=== PATIENT | male | born 1970 | race Caucasian/White ===

== ENCOUNTER → 2019-06-07 11:06 | Outpatient (CLI) | payer MEDICARE, MEDICAID, SELFPAY ==
--- NOTE | 2019-06-07 11:15 | XR_ITS ---
PROCEDURE: XR HIP RT 2-3V W/PELVIS CLINICAL INDICATION: B-HIP PAIN COMPARISON: XR HIP LT 2-3V W/PELVIS from 06/07/2019 FINDINGS: AP view of the pelvis with right hip shows no fracture or dislocation. No lytic or blastic change. Slight decrease in the joint space. There are degenerative changes of the SI joints inferiorly. There is some minimal lipping of the inferior aspect of the acetabulum on the left with minimal spurring. No fracture or dislocation. Slight decrease in the joint space. IMPRESSION: Minimal degenerative changes of the hips and SI joints. Dictated by: Terry Carbajal MD 06/07/2019 18:00 Electronically signed by Terry Carbajal MD in [place] 06/07/2019 18:00
--- NOTE | 2019-06-07 11:15 | XR_ITS ---
PROCEDURE: XR MULTIPLE SPINE 6+V CLINICAL INDICATION: CERVICAL /LUMBAR SPONDYLOSIS, LUMBAR NEURITIS COMPARISON: No exams were available for comparison FINDINGS: Cervical spine five views: Degenerative disc disease C4-C5 C5-C6 and C6-C7. The head is slightly tilted toward the left. No significant foraminal narrowing. No fracture or dislocation. Lumbar spine: Five views: Normal alignment. Minimal endplate hypertrophic change at L4 and L5. The disc spaces are well preserved. There is mild dorsal subluxation of the coccyx age indeterminate. Hypertrophic changes are present at the inferior aspect of the SI joints IMPRESSION: Degenerative changes cervical spine Mild degenerative changes lumbar spine with suspected old coccyx fracture Sacroiliac arthropathy Dictated by: Terry Carbajal MD 06/07/2019 17:59 Electronically signed by Terry Carbajal MD in [place] 06/07/2019 17:59
== END ==
PROVIDERS: PCP Nurse Practitioner Family; Visit Provider Nurse Practitioner Family
DX: M47.812 Spondylosis without myelopathy or radiculopathy, cervical region (principal); M47.816 Spondylosis without myelopathy or radiculopathy, lumbar region; M54.16 Radiculopathy, lumbar region; M25.552 Pain in left hip; M25.551 Pain in right hip
CPT/HCPCS: 72084; 73502

== ENCOUNTER 2021-03-08 19:30 | Inpatient (IN) | payer MEDICARE, MEDICAID, SELFPAY ==
[2021-03-08] VITALS (24 sets, daily range): BP systolic 70–111; BP diastolic 39–68; PULSE 43–183; RESP 14–20; TEMP 36.5; O2SAT 95–100; BMI 25.7
--- NOTE | 2021-03-08 | ECG_ITS ---
APPROVED REPORT Exam: Resting ECG HR:76 bpm ECG Measurements Heart Rate 76 AXES ID 174 P 78 QRSd 102 QRS 248 QT 396 T 262 QTc 445 Conclusion Normal sinus rhythm Right superior axis deviation Right ventricular hypertrophy Inferior infarct, age undetermined Abnormal ECG Electronically signed by : Kelvin Montoya, 03/09/2021 13:46:47
--- NOTE | 2021-03-08 | IR_ITS ---
APPROVED REPORT Patient Location: [facility] Tier: ITZ Duran RT (R) PROCEDURES 1. Left heart catheterization 2. Selective coronary arteriography 3. Left ventriculography 4. PTCA/stent of the left circumflex INDICATION 1. Ventricular tachycardia, 2. Non-Q wave myocardial infarction SCAI INDICATION Patient is a 50-year-old white male who presented with ventricular tachycardia. Non-Q wave myocardial infarction. Abnormal EKG. Secondary to this referred to the heart catheterization laboratory Informed consent was obtained prior to the procedure. COMPLICATIONS None Estimated Blood Loss: less than 10ml TECHNIQUE One percent lidocaine was used to anesthetize the right groin. The right femoral artery was accessed via the Seldinger technique. A 4-Yi sheath was placed in the right femoral artery. The JL-4 and JR-4 catheter was also used to perform left heart catheterization left ventriculogram and selective coronary angiogram. At the end of the procedure the patient was transferred to the post-op holding area in stable condition for arterial sheath removal. ANGIOGRAPHIC RESULTS The left main artery Left main coronary artery angiographically normal The left anterior descending artery Left anterior descending with smooth 20% mid stenosis The circumflex artery Left circumflex 100% occluded in its proximal/midportion prior to the takeoff of a large diagonal branch. There was also a ramus intermedius which was moderate in size and angiographically normal The right coronary artery Right coronary artery large and dominant. Posterior descending artery with smooth 40% proximal stenosis The ORANTES ventriculogram reveals Borderline normal left ventricular systolic function with an ejection fraction of 50% The left ventricular end-diastolic pressure 18 After diagnostic catheterization I went in with a guide catheter after heparin was given. Heparin was given with an ACT greater than 400. Went into the guide catheter left main coronary artery. Crossed into a large obtuse marginal branch with a Choice PT wire. Predilation was done with a balloon. One stent was placed in the obtuse marginal branch with another in the proximal circumflex. Resulted in 0% residual stenosis with NOÉ-3 flow to the distal large obtuse marginal branch. No significant residual stenosis when the procedure was complete IMPRESSION 1. 100% occlusion of the circumflex artery in its proximal portion 2. Mild diffuse disease in the other coronary vessels 3. Borderline normal left ventricular systolic function 4. Mild elevation in left ventricular end-diastolic pressure 5. Successful angioplasty and stenting of the circumflex and the circumflex extending into the large obtuse marginal with resolute [place] drug-eluting stents resulting in 0% residual stenosis 6. Successful placement of an Angio-Seal device in the right common femoral artery PLAN 1. Brilinta 180 mg x 1 now than 90 mg twice daily. I did start him on Integrilin. I run Integrilin for 10 hours. During the procedure the patient did have no reflow after the stenting of the obtuse marginal branch. Nipride was given with judaism of normal flow. Brilinta 90 mg twice daily and aspirin daily. Aggressive risk factor modification. At this point I do not think antiarrhythmics are needed. Low-dose beta-nini. Follow-up in cardiology clinic 1 to 2 weeks after discharge Electronically signed by : Emery Palacio, 03/08/2021 22:00:32
--- NOTE | 2021-03-08 19:31 | ECG_ITS ---
APPROVED REPORT Exam: Resting ECG HR:102 bpm ECG Measurements Heart Rate 102 AXES NE 148 P 78 QRSd 94 QRS 255 QT 388 T 265 QTc 505 Conclusion Sinus tachycardia with frequent premature ventricular complexes Possible Left atrial enlargement Right superior axis deviation Right ventricular hypertrophy Inferior infarct, age undetermined ST & T wave abnormality, consider lateral ischemia Abnormal ECG Electronically signed by : Kelvin Montoya, 03/09/2021 13:47:15
--- NOTE | 2021-03-08 19:39 | PC.NURSE ---
Just spoke with pt's significant other. She states that he does not have a family doctor at this time and that he doesn't take any medicines. Pt's gf is Yamila Harris [phone]
--- NOTE | 2021-03-08 19:43 | XR_ITS ---
PROCEDURE INFORMATION: Exam: XR Chest Exam date and time: 03/08/2021 7:43 PM Age: 50 years old Clinical indication: Patient HX: Neck pain, AMS; Additional info: V tach TECHNIQUE: Imaging protocol: XR of the chest. Views: 1 view. COMPARISON: CR XR MULTIPLE SPINE 6+V 06/07/2019 11:18 AM FINDINGS: Lungs: Mild hypoinflation. No focal airspace consolidation. No pulmonary edema. Calcified granuloma at the left lung apex. Pleural spaces: No pleural effusion. No pneumothorax. Heart/Mediastinum: Heart size is exaggerated by technique, likely within normal limits. Defibrillation pads overlie the chest. Bones/joints: Unremarkable. IMPRESSION: Mild hypoinflation. Otherwise unremarkable.
--- NOTE | 2021-03-08 19:45 | PC.NURSE ---
Dr Hinds speaking with Dr Dc
--- NOTE | 2021-03-08 19:50 | HMH.EDGENADL ---
ED Disposition Clinical Impression: Ventricular tachycardia, Non-ST elevation MO (NSTEMI) Hypotension Qualifiers: Hypotension type: unspecified hypotension type Qualified Code(s): I95.9 - Hypotension, unspecified Disposition: Admitted As Inpatient Condition on Discharge: Serious - Critical Care Critical Care Time: Yes Attestation: On 03/08/21, the high probability of a clinically significant, sudden or life threatening deterioration of the following system(s) required my full and direct attention, intervention and personal management. The time I documented below is in addition to time spent performing reported procedures but includes the following listed in this critical care notation. Total Critical Care Time: 40 Vital system(s) involved:: Circulatory Failure My critical care processes included: Assessment & monitoring of V/S, Initial and Re-exams, Data Review/Interpretation, Coordinating Care, Medication Orders and management, Documentation Medical Decision Making - Yosef Inquiry Pt receiving controlled substance: No Vital Signs: 03/08/21 19:37 03/08/21 19:47 03/08/21 20:00 Temperature 97.7 F Temperature Source Oral Pulse Rate 101 H 105 H Pulse Rate [Right] 99 H Respiratory Rate 16 20 16 Blood Pressure 86/54 L 100/57 L Blood Pressure [Right Arm] 89/52 L Blood Pressure Mean Blood Pressure Mean [Right Arm] 64 Blood Pressure Source [Right Arm] Automatic Cuff Blood Pressure Position [Right Arm] Supine 02 Sat by Pulse Oximetry 99 99 98 Oxygen Delivery Method Room Air 03/08/21 20:05 03/08/21 20:10 03/08/21 20:15 Temperature Temperature Source Pulse Rate 54 L 57 L 43 L Pulse Rate [Right] Respiratory Rate 17 18 18 Blood Pressure 89/46 L 92/46 L 90/48 L Blood Pressure [Right Arm] Blood Pressure Mean 54 60 54 Blood Pressure Mean [Right Arm] Blood Pressure Source [Right Arm] Blood Pressure Position [Right Arm] 02 Sat by Pulse Oximetry 95 99 99 Oxygen Delivery Method 03/08/21 20:25 03/08/21 20:30 03/08/21 20:35 Temperature Temperature Source Pulse Rate 45 L 49 L 50 L Pulse Rate [Right] Respiratory Rate 14 16 16 Blood Pressure 95/50 L 91/44 L 95/54 L Blood Pressure [Right Arm] Blood Pressure Mean 58 51 58 Blood Pressure Mean [Right Arm] Blood Pressure Source [Right Arm] Blood Pressure Position [Right Arm] 02 Sat by Pulse Oximetry 99 98 98 Oxygen Delivery Method 03/08/21 20:40 03/08/21 20:45 03/08/21 20:50 Temperature Temperature Source Pulse Rate 47 L 57 L 54 L Pulse Rate [Right] Respiratory Rate 16 16 16 Blood Pressure 111/67 108/59 L 99/53 L Blood Pressure [Right Arm] Blood Pressure Mean 73 64 59 Blood Pressure Mean [Right Arm] Blood Pressure Source [Right Arm] Blood Pressure Position [Right Arm] 02 Sat by Pulse Oximetry 97 98 Oxygen Delivery Method - Lab Data Lab Results 03/08/21 19:35: WBC 12.3 H, RBC 5.52, Hgb 15.7, Hct 47.9, MCV 86.7, MCH 28.4, MCHC 32.7, RDW 14.1, Plt Count 399, MPV 7.9, Neut % (Auto) 81.3 H, Lymph % (Auto) 13.5, [place] % (Auto) 3.5, Eos % (Auto) 0.9, Baso % (Auto) 0.7, Neut # (Auto) 10.0 H, Lymph # (Auto) 1.7, [place] # (Auto) 0.4, Eos # (Auto) 0.1, Baso # (Auto) 0.1 03/08/21 19:35: Sodium 141, Potassium 4.2, Chloride 106, Carbon Dioxide 22, Anion Gap 17.2 H, BUN 19, Creatinine 1.80 H, Estimated Creat Clear 58, Estimated GFR 40 L, Est GFR ( Amer) 48 L, Glucose 154 H, Calcium 9.3, Troponin I 6.68 H 03/08/21 19:35: Magnesium 2.0 03/08/21 19:35: ESR 17 03/08/21 19:35: Total Bilirubin 0.4, Direct Bilirubin 0.3, Conjugated Bilirubin 0.0, Indirect Bilirubin 0.1, Unconjugated Bilirubin 0.1, AST 35, ALT 31, Alkaline Phosphatase 73, C-Reactive Protein 8.1 H, Total Protein 7.2, Albumin 4.0, Procalcitonin 0.080 03/08/21 19:35: Lactate 3.8 H 03/08/21 21:30: Activated Clotting Time > 400 H* Result diagrams: 03/10/21 06:37 03/10/21 06:37 Orders (Tests/Meds): ED MEDICATIONS
[2021-03-08 19:54] LABS: Basophils # 0.1 K/mm3 (0-0.2); Basophils % 0.7 % (0.1-2.0); Eosinophils # 0.1 K/mm3 (0.0-0.4); Eosinophils % 0.9 % (0.1-12.0); Hematocrit 47.9 % (42.0-52.0); Hemoglobin 15.7 g/dL (14.1-18.0); Lymphocytes # 1.7 K/mm3 (0.7-4.5); Lymphocytes % 13.5 % (10-50); Mean Corpuscular HGB Conc 32.7 g/dL (31.8-35.4); Mean Corpuscular Hemoglobin 28.4 pg (27.0-31.2); Mean Corpuscular Volume 86.7 fl (80-94); Mean Platelet Volume 7.9 fl (7.4-10.4); Monocytes # 0.4 K/mm3 (0.1-1.0); Monocytes % 3.5 % (1.7-9.3); Neutrophils % 81.3 % (37.0-80.0); Platelet Count 399 K/mm3 (142-424); Red Blood Count 5.52 M/mm3 (4.60-6.20); Red Cell Distribution Width 14.1 % (11.5-17.5); White Blood Count 12.3 K/mm3 (4.8-10.8)
[2021-03-08 19:56] LABS: Anion Gap 17.2 mEq/L (5-15); Blood Urea Nitrogen 19 mg/dl (9-20); Calcium 9.3 mg/dl (8.4-10.2); Carbon Dioxide 22 mmol/L (22.0-30.0); Chloride 106 mmol/L (98-107); Creatinine Clearance Estimated 58 mL/min (50-200); Estimated Glomerular Filt Rate 40 ml/min (>60); GFR (African American) 48 ML/MIN (>60); Glucose 154 mg/dl (74-100); Potassium 4.2 mmoL/L (3.5-5.1); Sodium 141 mmol/L (136-145)
[2021-03-08 20:15] LABS: Troponin I 6.68 ng/ml (0.00-0.034)
--- NOTE | 2021-03-08 20:16 | PC.NURSE ---
Critical Troponin called from Lab name and confirmed and results given to Dr Hinds
[2021-03-08 20:17] LABS: Alanine Aminotransferase 31 U/L (12-78); Alkaline Phosphatase 73 U/L (38-126); Aspartate Amino Transferase 35 U/L (17-59); Bilirubin,Direct 0.3 mg/dl (0.0-0.4); Bilirubin,Indirect 0.1 mg/dL (0.0-0.9); Bilirubin,Total 0.4 mg/dl (0.2-1.3); Bilirubin,Unconjugated 0.1 mg/dL (0.0-1.1); Total Protein,Serum 7.2 g/dl (6.3-8.2)
--- NOTE | 2021-03-08 20:19 | PC.NURSE ---
Paged Dr Dc
[2021-03-08 20:21] LABS: Lactic Acid 3.8 mmol/L (0.7-2.1)
[2021-03-08 20:22] LABS: C-Reactive Protein 8.1 mg/L (0-4)
--- NOTE | 2021-03-08 20:30 | PC.NURSE ---
Dr Hinds spoke with Dr Palacio who requested roofing laborer be paged in. Paged at 2024 Paula 2024 Pietro 2025 Ena 2026. calls returned as above.
[2021-03-08 20:38] LABS: Erythrocyte Sedimentation Rate 17 mm/hr (0-20)
[2021-03-08 22:12] LABS: CATHL Activated Clotting Time > 400 SEC (74-125)
--- NOTE | 2021-03-08 23:30 | SUR.OPER ---
HAVE ATTEMPTED ORDERING NIPRIDE IN OCT TWICE. CANNOT SEE THAT IT HAS BEEN ORDERED IN OCT. NIPRIDE 200MCG/ML FOR A TOTAL OF 1ML(0.2MG) WAS GIVEN DURING PROCEDURE BY DR. VONNIE WOODSON. VERIFIED W/ PAULINE RN.
[2021-03-09] VITALS (23 sets, daily range): BP systolic 88–156; BP diastolic 48–91; PULSE 70–103; RESP 18–28; TEMP 36.3–37; O2SAT 91–100; BMI 26.0; BMI 31.2
--- NOTE | 2021-03-09 00:05 | SUR.PHASEII ---
2220 PT IN VTACH W/ PULSE AND ALERT AND ORIENTED AND ASYMPTOMATIC . BP = 103/45. HR = 183. O2 = 100 ON SIMPLE MASK AT 6L. PT IMMEDIATELY ASSESSED AND ER DOCTOR CALLED. ALISHA ORDERED 12 LEAD EKG. EKG BEING PERFORMED ALISHA WAS AT BEDSIDE DISCUSSING PT W/ DR. WALDEN ON PHONE. PT CONTINUES TO HAVE PULSE AND BE ORIENTED. ALISHA RECEIVED ORDER FROM WIN TO ADMINISTER AMIO BOLUS OF 150MG IV PUSH. PT CONTINUED TO BE IN VTACH. ORDERS THEN RECEIVED TO PERFORM A SYNCHRONIZED SHOCK AT 200J. PRIOR TO SHOCK SEDATION ADMINISTERED PER PROTOCOL. AFTER SHOCK PT CONTINUES TO BE IN VTACH. ORDERS THEN RECEIVED FOR UNSYNCHRONIZED SHOCK AT 200J. PT CONTINUES TO BE WITH PULSE AND ORIENTED AND ASYMPTOMATIC. HOWEVER CONTINUES IN VTACH. ORDERS THEN RECEIVED FROM CHINTAN TO ALISHA TO ADMINISTER LIDO 2% (100MG) IV PUSH. AFTER THIS MEDICATION PT CONVERTED TO NSR WHICH WAS CONFIRMED W/ ANOTHER 12 LEAD EKG. PT REMAINS STABLE.
[2021-03-09 00:11] LABS: Reflex Lactic Add Lactic Reflex
--- NOTE | 2021-03-09 01:42 | PC.NURSE ---
[address] alston for updated status report. informed dr. alston of blood pressure. heart rate, o2 sat, reported back pain and headache as well as sr without ectopy. no new orders received.
--- NOTE | 2021-03-09 01:52 | PC.NURSE ---
received order for pain medication. 2 norco given as well as zofran for nausea
--- NOTE | 2021-03-09 01:53 | PC.NURSE ---
patient up to floor 00:44 via stretcher.
[2021-03-09 02:14] LABS: Coronavirus 19, PCR Not Detected (NotDetected); Influenza A, PCR Not Detected (NotDetected); Influenza B, PCR Not Detected (NotDetected)
[2021-03-09 02:22] LABS: Lactic Acid Follow Up (RFLX 1) 1.7 mmol/L (0.7-2.1)
[2021-03-09 02:39] LABS: Troponin I 4.59 ng/ml (0.00-0.034)
--- NOTE | 2021-03-09 02:45 | PC.NURSE ---
received call raysa de in lab regarding troponin level, documented in critical lab
--- NOTE | 2021-03-09 02:46 | PC.NURSE ---
patient having episodes of daily, fcon denies any pain, soa, n/v, blood pressure remains stable. lidocaine drip increased to 2mg/min.
--- NOTE | 2021-03-09 02:59 | PC.NURSE ---
Addendum entered by Reva Pérez RN 03/09/21 03:01: also notified of critical troponin level Original Note: dr. chadwick notified of bigiminal and trigiminal triplets and salvos. informed of asymptomatic and stable blood pressure. informed of increase in lidocaine drip. no new orders received.
--- NOTE | 2021-03-09 04:03 | PC.NURSE ---
patient continues to have bigiminal couplets, remains asymptomatic. lidocaine drip increased to 3 mg/min
--- NOTE | 2021-03-09 05:50 | PC.NURSE ---
0500 patient having trigiminal pvcs, lidocaine drip decreased to 2 mg/min
--- NOTE | 2021-03-09 05:51 | PC.NURSE ---
0520 patient called nurse into room complaining of severe anxiety, states he has a history of it. heart rate 90s with trigiminal pvcs, blood pressure stable, sats greater than 90 % resp rate 30s. dr. hema rogers.
--- NOTE | 2021-03-09 05:52 | PC.NURSE ---
[id number] dr. garrido returned call updated on anxiety, new order received. vs remain stable
--- NOTE | 2021-03-09 08:00 | PC.NURSE ---
Integrilin gtt off @ [address] Palacio
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
--- NOTE | 2021-03-09 09:04 | HMH.PHAVTE ---
[facility] VTE Monitoring - Patient Demographics Admission date: 03/08/21 Report Date: 03/09/21 Time: 09:04 Allergies/Adverse Reactions: Patient Allergies butorphanol [From STADOL] Allergy (Unknown, Verified 03/09/21 01:27) Height: 1.8 m Weight: 84.822 kg Patient Problems: Current Active Problems Ventricular tachycardia (Acute) Non-ST elevation RI (NSTEMI) (Acute) Hypotension (Acute) Anxiety disorder (Acute) GERD (gastroesophageal reflux disease) (Acute) - VTE Risk Labs: VTE Related Lab Results Hgb 15.7 g/dL (14.1-18.0) 03/08/21 19:35 Hct 47.9 % (42.0-52.0) 03/08/21 19:35 Plt Count 399 K/mm3 (142-424) 03/08/21 19:35 BUN 19 mg/dl (9-20) 03/08/21 19:35 Creatinine 1.80 mg/dl (0.66-1.25) H 03/08/21 19:35 Estimated Creat Clear 58 mL/min (50-200) 03/08/21 19:35 Was VTE Risk Assessment Performed: Yes VTE Score: 8 VTE Risk Level: Moderate Risk Clinical Trial Participant: No - Prophylaxis VTE Prophylaxis Ordered?: Yes Types of VTE Prophylaxis: TEDS Knee High
[2021-03-09 09:07] LABS: Magnesium 2.2 mg/dl (1.6-2.3)
[2021-03-09 09:39] LABS: Thyroid Stimulating Hormone 3.53 uIU/mL (0.465-4.68)
[2021-03-09 10:02] LABS: Basophils # 0.2 K/mm3 (0-0.2); Eosinophils # 0.2 K/mm3 (0.0-0.4); Eosinophils % 1.1 % (0.1-12.0); Hematocrit 43.6 % (42.0-52.0); Lymphocytes # 3.7 K/mm3 (0.7-4.5); Lymphocytes % 17.6 % (10-50); MANUAL DIFFERENTIAL MANUAL DIFFERENTIAL (MANUAL DIFF); Mean Corpuscular Volume 87.3 fl (80-94); Mean Platelet Volume 7.9 fl (7.4-10.4); Monocytes # 0.9 K/mm3 (0.1-1.0); Monocytes % 4.2 % (1.7-9.3); Neutrophils # 16.1 K/mm3 (1.8-7.8); Platelet Count 404 K/mm3 (142-424); Red Cell Distribution Width 14.1 % (11.5-17.5); White Blood Count 21.1 K/mm3 (4.8-10.8)
[2021-03-09 10:07] LABS: Chloride 111 mmol/L (98-107); Sodium 140 mmol/L (136-145)
[2021-03-09 10:08] LABS: Potassium 4.7 mmoL/L (3.5-5.1)
[2021-03-09 10:10] LABS: Blood Urea Nitrogen 17 mg/dl (9-20); Creatinine Clearance Estimated 81 mL/min (50-200); Estimated Glomerular Filt Rate 58 ml/min (>60); GFR (African American) 70 ML/MIN (>60)
[2021-03-09 10:11] LABS: Anion Gap 11.7 mEq/L (5-15); Calcium 8.8 mg/dl (8.4-10.2); Carbon Dioxide 22 mmol/L (22.0-30.0); Glucose 120 mg/dl (74-100)
[2021-03-09 10:37] LABS: Lymphocytes % 18 % (10-50); Monocytes % 7 % (2-9); Neutrophils % 75 % (42-76); Platelet Estimate Normal; RBC Morphology Normal; Total Cells Counted 100
--- NOTE | 2021-03-09 16:22 | PC.NURSE ---
PT IS SITTING UP IN THE BED AT THIS TIME. PT STATES HE WOULD LIKE TO BE ABLE TO GO TO SLEEP BUT HE JUST CANNOT SEEM TO GET COMFORTABLE. PT STATES HE IS NOT HAVING ANY CHEST PAIN BUT DOES FEEL VERY ANXIOUS. PT STATED HE WAS ON MEDICATION FOR ANXIETY 5 YEARS AGO AND WAS ABLE TO WEAN HIMSELF OFF OF IT BUT SINCE THIS EVENT HE FEELS LIKE HIS ANXIETY MIGHT BECOME A PROBLEM AGAIN. HR HAS MAINTAINED 88-98 T/O THE SHIFT. RHYTHM IS BACK AND FOURTH BETWEEN BIGEMINY AND TRIGEMINY. LIDOCAINE DRIP @ 2MG/MIN. APPETITE HAS BEEN POOR BUT PT HAS BEEN DRINKING WELL. BP STABLE AT THIS TIME. O2 SATURATION 90-96% ON 2 L NC. JEOVANY NOTED THAT PT STATES HE HAS HAD SINCE 2000. LUNG SOUNDS DIMINISHED. ABDOMEN SOFT/NON TENDER WITH HYPERACTIVE BOWEL SOUNDS. BILATERAL FEMORAL CATH SITES WITH DRESSINGS C/D/I. WILL CONTINUE TO MONITOR.
[2021-03-10] VITALS (14 sets, daily range): BP systolic 102–154; BP diastolic 51–90; PULSE 83–116; RESP 18–30; TEMP 36.6–36.9; O2SAT 91–99
[2021-03-10 07:04] LABS: Basophils # 0.1 K/mm3 (0-0.2); Basophils % 0.6 % (0.1-2.0); Eosinophils # 0.1 K/mm3 (0.0-0.4); Eosinophils % 0.8 % (0.1-12.0); Hematocrit 40.8 % (42.0-52.0); Hemoglobin 13.4 g/dL (14.1-18.0); Lymphocytes # 1.8 K/mm3 (0.7-4.5); Lymphocytes % 11.5 % (10-50); Mean Corpuscular HGB Conc 32.9 g/dL (31.8-35.4); Mean Corpuscular Hemoglobin 28.3 pg (27.0-31.2); Mean Platelet Volume 7.6 fl (7.4-10.4); Monocytes # 0.5 K/mm3 (0.1-1.0); Monocytes % 3.2 % (1.7-9.3); Neutrophils # 13.1 K/mm3 (1.8-7.8); Neutrophils % 83.9 % (37.0-80.0); Platelet Count 252 K/mm3 (142-424); Red Blood Count 4.75 M/mm3 (4.60-6.20); Red Cell Distribution Width 14.3 % (11.5-17.5); White Blood Count 15.6 K/mm3 (4.8-10.8)
[2021-03-10 07:07] LABS: MANUAL DIFFERENTIAL MANUAL DIFFERENTIAL (MANUAL DIFF)
[2021-03-10 07:20] LABS: Alanine Aminotransferase 21 U/L (12-78); Albumin Level 3.3 g/dl (3.5-5.0); Albumin/Globulin Ratio 1.1 (1.1-1.8); Alkaline Phosphatase 69 U/L (38-126); Anion Gap 12.9 mEq/L (5-15); Aspartate Amino Transferase 24 U/L (17-59); Bilirubin,Total 0.5 mg/dl (0.2-1.3); Blood Urea Nitrogen 17 mg/dl (9-20); Calcium 8.5 mg/dl (8.4-10.2); Carbon Dioxide 26 mmol/L (22.0-30.0); Chloride 110 mmol/L (98-107); Creatinine Clearance Estimated 97 mL/min (50-200); Estimated Glomerular Filt Rate 58 ml/min (>60); GFR (African American) 70 ML/MIN (>60); Glucose 102 mg/dl (74-100); Potassium 4.9 mmoL/L (3.5-5.1); Sodium 144 mmol/L (136-145); Total Protein,Serum 6.3 g/dl (6.3-8.2)
--- NOTE | 2021-03-10 07:30 | HMH.CNCARD ---
History of Present Illness Consult date: 03/10/21 Requesting physician: Kelvin Montoya Consult reason: chest pain Chief complaint: NSTEMI Additional Medical History:: 1. Hypertension, treated in the past with recent disruption in therapy over the last 5 years 2. Hyperlipidemia, treated in the past and again with recent disruption in therapy 3. History of drug use (most recently methamphetamine) 4. Family history of coronary artery disease, and both sisters, father of a stroke, mother of cancer 5. Tobacco use, 1.5 to 2 packs/day for at least 30 years 6. History of incarceration 7. Reported history of myocardial infarction approximately 2012 without follow-up cardiac catheterization. Reportedly had an echocardiogram and was told that there was no evidence of damage. 8. Non-ST elevation CO, 03/08/2021, complicated by ventricular tachycardia requiring electrical cardioversion after IV amiodarone therapy failed to control A. [facility], 03/08/2021, IMPRESSION 1. 100% occlusion of the circumflex artery in its proximal portion 2. Mild diffuse disease in the other coronary vessels 3. Borderline normal left ventricular systolic function 4. Mild elevation in left ventricular end-diastolic pressure 5. Successful angioplasty and stenting of the circumflex and the circumflex extending into the large obtuse marginal with resolute Nelson drug-eluting stents resulting in 0% residual stenosis 6. Successful placement of an Angio-Seal device in the right common femoral artery PLAN 1. Brilinta 180 mg x 1 now than 90 mg twice daily. I did start him on Integrilin. I run Integrilin for 10 hours. During the procedure the patient did have no reflow after the stenting of the obtuse marginal branch. Nipride was given with catholic of normal flow. Brilinta 90 mg twice daily and aspirin daily. Aggressive risk factor modification. At this point I do not think antiarrhythmics are needed. Low-dose beta-nini. Follow-up in cardiology clinic 1 to 2 weeks after discharge Electronically signed by : Emery Palacio, 03/08/2021 22:00:32 9. 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 Remote history of heatstroke History of present illness: 50-year-old white male admitted for non-ST elevation CO with ventricular tachycardia unresponsive to IV amiodarone therapy ultimately requiring electrical cardioversion in urgent treatment with cardiac catheterization and subsequent stent placement. Please see ER admission records and Dr. Montoya's admission H&P for further information. Patient states 3 weeks ago he had a discomfort in his back and up into the back of his neck after which he remained somewhat fatigued and tired. On March 07 patient began having episodes of just not feeling well with visual disturbance that improved after taking aspirin therapy. Symptoms again returned on March 08 and after treating with aspirin therapy, symptoms continued to the point the contacted EMS for transportation to the hospital. He was noted to be in V. tach upon the assessment by EMS and was given IV amiodarone therapy. Assessment in the ER included elevated troponins for which Dr. Dc was contacted. Initially it was felt that he would not be taken to the cardiac [employer] but due to continued runs of V. tach and hypotension it was elected to treat him more aggressively at which time he was taken to the cardiac [employer]. Dr. Morrison performed the cardiac catheterization placing stents in the circumflex distribution. Due to a no reflow phenomenon post stenting patient was given night pride along with IV Integrilin with improvement. Patient has continued to have ventricular ectopy including recurrent V. tach reguiring additional IV amiodarone, repeat cardioversion and then IV lidocaine resulting in decreased ventricular therapy over the last 36 hours. He denies any chest pain, pressure or tightness at this time. EKG and echocardiogram are pending from this m
--- NOTE | 2021-03-10 08:07 | PC.NURSE ---
per catalino verduzco instructed to decrease lidocaine drip to 1mg/min give 50mg of metoprolol tartrate and turn lidocaine off in an hour.
--- NOTE | 2021-03-10 08:33 | HMH.ACPN2 ---
Internal Medicine - PN: Subj *Date: 03/10/21 *Time: 08:33 Interval history: Patient remains in stepdown unit on lidocaine drip for post MS V. tach. He has had no further episodes of V. tach, does have alternating bigeminy and trigeminy. However from a cardiac standpoint patient states he feels good he is just been extremely agitated and has had problems with difficulty sleeping and tachypnea and because of his nerves. After Ativan was really unsuccessful we tried 1 dose of Resporal and then switched to Seroquel which she stated was much more helpful and allowed him to get some sleep. He is in a much better emotional mood today. Cardiology has seen the patient this morning. Appreciate evaluation. Talked with cardiology by phone. Exam Vital signs and Labs for Last 24 Hours: Temp Pulse Resp BP Pulse Ox 98 F 103 H 20 129/51 L 96 03/10/21 04:00 03/10/21 06:00 03/10/21 04:00 03/10/21 06:00 03/10/21 06:00 Laboratory Results - last 24 hr 03/09/21 02:02: Magnesium 2.2, TSH 3.53 03/09/21 10:00: WBC 21.1 H* D, RBC 5.00, Hgb 14.0 L D, Hct 43.6, MCV 87.3, MCH 28.0, MCHC 32.0, RDW 14.1, Plt Count 404, MPV 7.9, Neut % (Auto) 76.0, Lymph % (Auto) 17.6, [place] % (Auto) 4.2, Eos % (Auto) 1.1, Baso % (Auto) 1.0, Neut # (Auto) 16.1 H, Lymph # (Auto) 3.7, [place] # (Auto) 0.9, Eos # (Auto) 0.2, Baso # (Auto) 0.2, Total Counted 100, Neutrophils % (Manual) 75, Lymphocytes % (Manual) 18, Monocytes % (Manual) 7, Platelet Estimate Normal, RBC Morphology Normal 03/09/21 10:00: Sodium 140, Potassium 4.7, Chloride 111 H, Carbon Dioxide 22, Anion Gap 11.7, BUN 17, Creatinine 1.30 H D, Estimated Creat Clear 81, Estimated GFR 58 L, Est GFR ( Amer) 70 D, Glucose 120 H D, Calcium 8.8 03/10/21 06:37: WBC 15.6 H D, RBC 4.75, Hgb 13.4 L, Hct 40.8 L, MCV 86.0, MCH 28.3, MCHC 32.9, RDW 14.3, Plt Count 252 D, MPV 7.6, Neut % (Auto) 83.9 H, Lymph % (Auto) 11.5, [place] % (Auto) 3.2, Eos % (Auto) 0.8, Baso % (Auto) 0.6, Neut # (Auto) 13.1 H, Lymph # (Auto) 1.8, [place] # (Auto) 0.5, Eos # (Auto) 0.1, Baso # (Auto) 0.1 03/10/21 06:37: Sodium 144, Potassium 4.9, Chloride 110 H, Carbon Dioxide 26, Anion Gap 12.9, BUN 17, Creatinine 1.30 H, Estimated Creat Clear 97, Estimated GFR 58 L, Est GFR ( Amer) 70, Glucose 102 H, Calcium 8.5, Total Bilirubin 0.5, AST 24 D, ALT 21 D, Alkaline Phosphatase 69, Total Protein 6.3, Albumin 3.3 L D, Globulin 3.0, Albumin/Globulin Ratio 1.1 03/10/21 06:37: Magnesium 2.0 I & O for Last 24 hours: Intake & Output 03/07/21 03/08/21 03/09/21 03/10/21 11:59 11:59 11:59 11:59 Intake Total 2382 / 2382 720 / 720 Output Total 1525 / 1525 1650 / 1650 Balance 857 / 857 -930 / -930 Weight 224 lb 1 oz - Constitutional no acute distress - *Routine HEENT Exam Head: Present: normocephalic Eye: Present: EOMI, PERRL ENT: Present: mucous membranes moist - *Routine Neck Exam Present: supple. Absent: lymphadenopathy - *Routine Respiratory Exam Present: CTA bilaterally - *Routine Cardiovascular Exam Present: RRR - *Routine Abdominal Exam Present: soft, normoactive bowel sounds. Absent: tenderness - *Routine Extremities Exam Absent: cyanosis, clubbing, edema Comments: Previous amputation site unchanged. No distal edema in the remaining leg. - *Routine Skin Exam Present: warm. Absent: rash - *Routine Neurological Exam Present: alert, oriented X3 Assessment and Plan (1) Anxiety disorder Status: Acute Category: Medical Code(s): F41.9 - Anxiety disorder, unspecified (2) GERD (gastroesophageal reflux disease) Status: Acute Category: Medical Code(s): K21.9 - Gastro-esophageal reflux disease without esophagitis (3) Non-ST elevation MS (NSTEMI) Status: Acute Category: Medical Code(s): I21.4 - Non-ST elevation (NSTEMI) myocardial infarction (4) Ventricular tachycardia Status: Acute Category: Medical Code(s): I47.2 - Ventricular tachycardia (5) Tobacco use disorder Status:
[2021-03-10 08:37] LABS: Eosinophils % 3 % (0-3); Lymphocytes % 11 % (10-50); Monocytes % 4 % (2-9); Neutrophils % 82 % (42-76); Platelet Estimate Normal; RBC Morphology Normal; Total Cells Counted 100
--- NOTE | 2021-03-10 08:49 | CA_ITS ---
APPROVED REPORT EXAM: Comprehensive 2D, Doppler, and color-flow Echocardiogram Umbrella Cutter: Damari Whitaker RVT Ht: 5 ft 11 in Wt: 182lbs BSA: 2.03 BP: 120/64 mmHg Indications: STEMI,VTACH,STENT,VA,DM,SMOKER,CP,HTN,HLD 2D Dimensions LVOT 2.20 cm (M/F) 1.5-2.5 LA Volume 25.00 mL LA Volume Index 12.37 mL/m2 (M/F) 16-34 M-Mode Dimensions LA Diam 3.90 cm (1.9-4.0) LVDd 6.30 cm (3.5-5.7) Ao Diam 2.20 cm (2.0-3.7) LVDs 4.70 cm (3.5-5.7) AV Cusp 1.40 cm (1.5-2.6) IVSd 0.80 cm (0.6-1.1) PWd 0.90 cm (0.6-1.1) EF (Teich) 49.30% FS 25.40% EDV (Teich) 201.00 mL ESV (Teich) 102.00 mL LV Diastology MED E' 7.51 (< 7 cm/sec) LAT E' 9.46 (<10 cm/sec) Aortic Valve AoV Peak Italo. 140.00 (50-130 cm/s) AO Peak GR. 8.00 mmHg Pulmonary Valve PV Peak Velocity 89.30 (50-150 cm/s) Tricuspid Valve TR P. Velocity 220.00 cm/s RAP Estimate 10.00 mmHg RVSP 29.00 mmHg Left Ventricle Left atrium is mildly enlarged, left ventricle is normal size, there is mild concentric left ventricular hypertrophy, visually estimated ejection fraction approximately 45%, there is marked hypokinesis involving the inferior wall, basal septum and inferobasal wall. Diastolic parameters are inconclusive. Right Ventricle Right atrium and right ventricle are normal size and contractility. Aortic Valve Aortic valve is minimally thickened and fibrosed, there is no aortic stenosis or aortic insufficiency. Mitral Valve Mitral valve leaflets are minimally thickened, there is moderate to severe mitral regurgitation. Tricuspid Valve Tricuspid valve is grossly normal, there is mild tricuspid regurgitation, tricuspid regurgitation jet velocity is inadequate for calculation of the right ventricular systolic pressure. Pulmonic Valve Pulmonic valve is poorly visualized. Great Vessels Aortic root is normal size. Inferior vena cava is mildly dilated without significant inspiratory collapse. Pericardium No significant pericardial effusion noted. Conclusion 1. Mildly enlarged left atrium, normal left ventricular size, mild concentric left ventricular hypertrophy, visually estimated ejection fraction 45% with segmental wall motion abnormality described above, diastolic parameters are inconclusive. 2. Moderate to severe mitral regurgitation and mild tricuspid regurgitation, tricuspid regurgitation jet velocity is inadequate for calculation of the right ventricular systolic pressure. 3. No significant pericardial effusion noted. Electronically signed by : Case Bautista, 03/10/2021 13:34:34
--- NOTE | 2021-03-10 15:14 | PC.NURSE ---
patient has had an okay shift. around 1115 patient noted to ring out and complain of shoulder and neck pain. patient also complaining of shortness of breath. stated this is the pain he felt when he came in. did notify catalino verduzco on the floor who came and reassessed the patient. patient given tylenol, lorazepam, seroquel, and morphine, and lasix all given at this time. brilinta changed to plavix. patient has since rested well, and states he is feeling a lot better. pvcs have become slightly less frequent. bp has fluctuated. o2 sats well. patient was upset about spitting up some blood catalino verduzco aware, has not done it since. anxiety has improved through out the day
--- NOTE | 2021-03-10 21:01 | PC.NURSE ---
Snack offered and trash pulled
[2021-03-11] VITALS (11 sets, daily range): BP systolic 117–172; BP diastolic 62–97; PULSE 83–108; RESP 17–24; TEMP 36.5–36.7; O2SAT 92–100; BMI 29.9
--- NOTE | 2021-03-11 02:20 | PC.NURSE ---
r/a sat 93%, o2 remains off at this time.
--- NOTE | 2021-03-11 02:48 | PC.NURSE ---
o2 sats sustaining 85% on r/a 1 hour while sleeping. o2 back to 2 l nc currently
--- NOTE | 2021-03-11 06:56 | HMH.ACPN2 ---
Internal Medicine - PN: Subj *Date: 03/11/21 *Time: 11:44 Interval history: Patient doing well this morning. Still having slight arrhythmia but stable. No chest pain or shortness of breath however still wearing oxygen more for comfort. Did have an episode of anxiety overnight. Denies nausea or vomiting. Eating fairly well. Has not had a bowel movement in about 2 days. Afebrile. Still complaining of right-sided back and shoulder pain present since his previous heart attack. Exam Vital signs and Labs for Last 24 Hours: Temp Pulse Resp BP Pulse Ox 98.0 F 88 24 139/75 93 L 03/11/21 04:00 03/11/21 06:00 03/11/21 06:00 03/11/21 06:00 03/11/21 06:00 Laboratory Results - last 24 hr 03/10/21 06:37: WBC 15.6 H D, RBC 4.75, Hgb 13.4 L, Hct 40.8 L, MCV 86.0, MCH 28.3, MCHC 32.9, RDW 14.3, Plt Count 252 D, MPV 7.6, Neut % (Auto) 83.9 H, Lymph % (Auto) 11.5, [place] % (Auto) 3.2, Eos % (Auto) 0.8, Baso % (Auto) 0.6, Neut # (Auto) 13.1 H, Lymph # (Auto) 1.8, [place] # (Auto) 0.5, Eos # (Auto) 0.1, Baso # (Auto) 0.1, Total Counted 100, Neutrophils % (Manual) 82 H, Lymphocytes % (Manual) 11, Monocytes % (Manual) 4, Eosinophils % (Manual) 3, Platelet Estimate Normal, RBC Morphology Normal 03/10/21 06:37: Sodium 144, Potassium 4.9, Chloride 110 H, Carbon Dioxide 26, Anion Gap 12.9, BUN 17, Creatinine 1.30 H, Estimated Creat Clear 97, Estimated GFR 58 L, Est GFR ( Amer) 70, Glucose 102 H, Calcium 8.5, Total Bilirubin 0.5, AST 24 D, ALT 21 D, Alkaline Phosphatase 69, Total Protein 6.3, Albumin 3.3 L D, Globulin 3.0, Albumin/Globulin Ratio 1.1 03/10/21 06:37: Magnesium 2.0 I & O for Last 24 hours: Intake & Output 03/08/21 03/09/21 03/10/21 03/11/21 23:59 23:59 23:59 23:59 Intake Total 1000 / 1000 1862 / 1862 1200 / 1200 Output Total 2425 / 2425 4100 / 4100 Balance 1000 / 1000 -563 / -563 -2900 / -2900 Weight 83.915 kg 101.633 kg 97.069 kg Narrative: - Constitutional no acute distress, mild anxiety - *Routine HEENT Exam Head: Present: normocephalic Eye: Present: EOMI, PERRL ENT: Present: mucous membranes moist - *Routine Neck Exam Present: supple. Absent: lymphadenopathy - *Routine Respiratory Exam Present: CTA bilaterally - *Routine Cardiovascular Exam Present: RRR - *Routine Abdominal Exam Present: soft, normoactive bowel sounds. Absent: tenderness - *Routine Extremities Exam Absent: cyanosis, clubbing, edema Comments: previous amputation site unchanged. No distal edema in the remaining leg. - *Routine Skin Exam Present: warm. Absent: rash - *Routine Neurological Exam Present: alert, oriented X3 Assessment and Plan (1) Anxiety disorder Status: Acute Category: Medical Code(s): F41.9 - Anxiety disorder, unspecified (2) GERD (gastroesophageal reflux disease) Status: Acute Category: Medical Code(s): K21.9 - Gastro-esophageal reflux disease without esophagitis (3) Non-ST elevation NV (NSTEMI) Status: Acute Category: Medical Code(s): I21.4 - Non-ST elevation (NSTEMI) myocardial infarction (4) Ventricular tachycardia Status: Acute Category: Medical Code(s): I47.2 - Ventricular tachycardia (5) Tobacco use disorder Status: Acute Category: Medical Code(s): F17.200 - Nicotine dependence, unspecified, uncomplicated (6) Hyperlipidemia Status: Acute Category: Medical Code(s): E78.5 - Hyperlipidemia, unspecified (7) History of hypertension Status: Acute Category: Medical Code(s): Z86.79 - Personal history of other diseases of the circulatory system - Assessment and plan all Dx Assessment and Plan for all problems:: 50-year-old male status post STEMI with occlusion of circumflex. Single drug-eluting stent placed. Tolerating goal-directed therapy well at this time. Continue to monitor on telemetry for arrhythmia. Plan from cardiology as follows 1. Ischemic cardiomyopathy with moderate to severe MR. Continue increasing lisinopr
--- NOTE | 2021-03-11 09:17 | P.PN_ITS ---
Subjective Date: 03/11/21 Time: 09:17 Principal diagnosis: NSTEMI, mod-severe MR, CHF Interval history: 50-year-old white male in bed in no acute distress. Shortness of breath has significantly improved over the last 24 hours with medication changes including discontinuation of Brilinta in favor of Plavix, stopping beta-nini therapy in favor of HAYDEN inhibitor therapy due to the patient's moderate to severe MR on echocardiogram. We will continue Lasix therapy as well. Telemetry reveals sinus rhythm with an improvement in ventricular ectopy over the last 24 hours. Exam Vital signs and Labs for Last 24 Hours: Temp Pulse Resp BP Pulse Ox 97.9 F 100 H 17 139/62 99 03/11/21 07:42 03/11/21 07:42 03/11/21 07:42 03/11/21 07:42 03/11/21 07:42 I & O for Last 24 hours: Intake & Output 03/08/21 03/09/21 03/10/21 03/11/21 11:59 11:59 11:59 11:59 Intake Total 2382 / 2382 960 / 960 1080 / 1080 Output Total 1525 / 1525 2450 / 2450 2550 / 2550 Balance 857 / 857 -1490 / -1490 -1470 / -1470 Weight 224 lb 1 oz 214 lb - Constitutional no acute distress - *Routine HEENT Exam Head: Present: normocephalic Eye: Present: EOMI, PERRL ENT: Present: mucous membranes moist - *Routine Neck Exam Present: supple. Absent: lymphadenopathy - *Routine Respiratory Exam Present: CTA bilaterally - *Routine Cardiovascular Exam Present: RRR - *Routine Abdominal Exam Present: soft, normoactive bowel sounds. Absent: tenderness - *Routine Extremities Exam Absent: cyanosis, clubbing, edema - *Routine Skin Exam Present: warm. Absent: rash - *Routine Neurological Exam Present: alert, oriented X3 Progress Note: A&P (1) Anxiety disorder Status: Acute (2) GERD (gastroesophageal reflux disease) Status: Acute (3) Non-ST elevation ND (NSTEMI) Status: Acute (4) Ventricular tachycardia Status: Acute (5) Tobacco use disorder Status: Acute (6) Hyperlipidemia Status: Acute (7) History of hypertension Status: Acute (8) Moderate to severe mitral regurgitation Status: Acute (9) Ischemic cardiomyopathy Status: Acute Assessment and Plan for All Diagnoses:: 1. Ischemic cardiomyopathy with moderate to severe MR. Continue increasing lisinopril therapy to 5 mg twice daily and continue Lasix 40 mg daily. Monitoring renal and potassium status daily. 2. Coronary artery disease with non-ST elevation ND this admission, status post RAINER to circumflex artery. Continue aspirin and Plavix therapy. Patient intolerant of Brilinta due to shortness of breath. 3. Hyperlipidemia, continue statin therapy 4. Ventricular tachycardia on admission with recurrent ventricular bigeminy post stenting, improved with amiodarone 200 mg twice daily. Baseline chest x- ray unremarkable and TSH normal this admission. 5. Anxiety, improved on Ativan and Seroquel therapy Recommend continue to monitor over the next 24 to 48 hours with further decision on treatment and timing of discharge to be determined.
--- NOTE | 2021-03-11 10:17 | HMH.PTEV ---
Physical Therapy Evaluation Rehab PT IP Evaluation Start: 03/11/21 08:20 Freq: ONCE Status: Active Protocol: Document 03/11/21 10:11 EUGENIA (Rec: 03/11/21 10:17 EUGENIA [id number]) Subjective/History History History This is the initial IP PT eval for Darshan Ambrose. Pt was admitted to [facility] thru EMS/ED for non-STEMI. Subjective Subjective Pt reprots he lives in [facility] w/ signifiicant other. Pt has R AKA and uses crutches for mobility Rehab PT IP Eval Objective Appearance Patient Behavior Appropriate,Cooperative Patient Orientation Person,Place,Time Difficulty following instructions none Speech Pattern Clear,Appropriate Ambulation Patient Able to Ambulate Yes Ambulation Observation IP General Gait Pattern Observation Decrease Weight Bear (R) Ambulation Distance (feet) 75 Ambulation Assistive Device Rolling Walker Ambulation Ability Independent,Supervision/Stand by Balance Ability to Arise Able, uses arms to help Sitting Balance Steady, safe Standing Balance Narrow stance w/o support Dynamic Sitting Balance Ability Good Dynamic Standing Balance Ability Fair Transfers Bed Transfer Ability Independent Chair Transfer Ability Independent Sit to Stand Bed Transfer Ability Supervision/Stand by Sit to Stand Chair Transfer Ability Supervision/Stand by Rehab PT IP prob,goals,plan Problems Date of Evaluation: 03/11/21 PT IP Problems Transfers,Gait,Self care, Safety Rehab Potential Rehab Potential Good Equipment Needs Assistive Devices Rolling / Wheeled Walker, Axillary Crutches Plan PT Intervention Plan Transfers,Gait,Balance, Therapeutic Exercise PT Plan Frequency BID Duration LOS Discharge Goals Bed Transfer Ability Independent Sit to Stand Chair Transfer Ability Independent Ambulation Assistive Device Rolling Walker,Axillary Crutches Ambulation Distance (feet) 75 Discharge Plan PT Discharge Plan Pt to return home w/ spouse once medically stable - during stay pt will benefit from skilled therapy to improve activity tolerance for return to PLOF and PLOI G -code Required No Eval Compl
--- NOTE | 2021-03-11 18:40 | PC.NURSE ---
PT IS RESTING IN BED. RECEIVED TYLENOL FOR DISCOMFORT IN THE RT SHOULDER. PT HAS BEEN AMBULATING TO THE BATHROOM WITH WALKER AND STANDBY ASSIST. OFFERED PT A SHOWER THIS SHIFT AND HE STATED HE WANTED TO WAIT FOR HIS GIRLFRIEND TO GET HERE. PT HAS BEEN NSR WITH OCCASIONAL PVC'S ON THE MONITOR. LUNG SOUNDS CLEAR. ABDOMEN SOFT/NON TENDER WITH ACTIVE BOWEL SOUNDS. PT TOLERATED SITTING UP IN THE CHAIR FOR A FEW HOURS THIS SHIFT. PT'S APPETITE HAS IMPROVED. JEOVANY NOTED. PT STATES HE HAS A PROSTHESIS BUT IT NO LONGER FITS SO HE HAS BEEN GETTING AROUND WITH CRUTCHES AT HOME. BILATERAL FEMORAL DRESSING SITES C/D/I. O2 SATURATION HAS MAINTAINED 93-98% ON 2 L NC T/O THE SHIFT. WILL CONTINUE TO MONITOR.
[2021-03-12] VITALS (29 sets, daily range): BP systolic 84–157; BP diastolic 52–103; PULSE 8–145; RESP 14–24; TEMP 36.3–36.7; O2SAT 95–99; BMI 29.5; BMI 29.6
--- NOTE | 2021-03-12 03:00 | ECG_ITS ---
APPROVED REPORT Exam: Resting ECG HR:146 bpm ECG Measurements Heart Rate 146 AXES QRSd 200 QRS 165 QT 404 T -19 QTc 629 Conclusion l Wide QRS tachycardia Nonspecific intraventricular block Right ventricular hypertrophy Inferior infarct, age undetermined Anterolateral infarct, age undetermined Abnormal ECG Electronically signed by : Kelvin Montoya, 03/12/2021 21:36:08
--- NOTE | 2021-03-12 03:42 | PC.NURSE ---
pt started to show v-tach on monitor with pulse up to 145. EKG completed. Contacted who gave orders for 1 amp of Lidocaine and to start a Lidocaine drip at 2mg/hr. Paged to report status of patient, he agreed with orders and gave no more outstanding orders. Pt is stable sitting up in bed talking, B/P has remained stable, Gave report to MARCO ANTONIO Ardon and transferred pt to OR.
--- NOTE | 2021-03-12 03:53 | PC.NURSE ---
0320 received patient from donal rn . patient in wide complex tachycardia with rate 144, pulse palpable. patient any pain, soa, nausea or vomiting. aawake, alert and orients. o2 sats 96% on r/a. o2 applied at 2l nc per patient comfort. 1 amp lidocaine given ivp and lidocaine drip initiated per order. dr. whalen conversing with dr. alston regarding patient. 0400 patient has been converting in and out of wide complex tachycardia, patient remains asymptomatic. when converts back to sr 80s to 90s hr, patient has trigeminal pvcs.
[2021-03-12 04:13] LABS: Chloride 110 mmol/L (98-107)
[2021-03-12 04:14] LABS: Potassium 3.6 mmoL/L (3.5-5.1); Sodium 143 mmol/L (136-145)
[2021-03-12 04:17] LABS: Anion Gap 10.6 mEq/L (5-15); Blood Urea Nitrogen 22 mg/dl (9-20); Calcium 8.7 mg/dl (8.4-10.2); Carbon Dioxide 26 mmol/L (22.0-30.0); Creatinine Clearance Estimated 109 mL/min (50-200); Estimated Glomerular Filt Rate 71 ml/min (>60); GFR (African American) 85 ML/MIN (>60); Glucose 95 mg/dl (74-100); Magnesium 2.1 mg/dl (1.6-2.3)
--- NOTE | 2021-03-12 04:35 | PC.NURSE ---
patient feeling mildly anxious since cardiac event, patient has been sustaining 90s heart rate in sr with occasion single pvcs. last run was 30 min ago. blood pressure normalized and is currently 133/76. 50 mg seroquel given po for anxiety.
[2021-03-12 05:02] LABS: Basophils # 0.1 K/mm3 (0-0.2); Basophils % 0.8 % (0.1-2.0); Chloride 110 mmol/L (98-107); Eosinophils # 0.3 K/mm3 (0.0-0.4); Eosinophils % 3.1 % (0.1-12.0); Hematocrit 41.7 % (42.0-52.0); Hemoglobin 13.4 g/dL (14.1-18.0); Lymphocytes # 2.7 K/mm3 (0.7-4.5); Lymphocytes % 26.8 % (10-50); Mean Corpuscular HGB Conc 32.1 g/dL (31.8-35.4); Mean Corpuscular Hemoglobin 27.3 pg (27.0-31.2); Mean Corpuscular Volume 85.2 fl (80-94); Mean Platelet Volume 8.4 fl (7.4-10.4); Monocytes # 0.9 K/mm3 (0.1-1.0); Monocytes % 8.6 % (1.7-9.3); Neutrophils # 6.1 K/mm3 (1.8-7.8); Neutrophils % 60.8 % (37.0-80.0); Platelet Count 263 K/mm3 (142-424); Potassium 3.6 mmoL/L (3.5-5.1); Red Blood Count 4.89 M/mm3 (4.60-6.20); Red Cell Distribution Width 13.9 % (11.5-17.5); Sodium 143 mmol/L (136-145)
[2021-03-12 05:05] LABS: Alanine Aminotransferase 24 U/L (12-78); Albumin Level 3.7 g/dl (3.5-5.0); Albumin/Globulin Ratio 1.2 (1.1-1.8); Alkaline Phosphatase 72 U/L (38-126); Anion Gap 11.6 mEq/L (5-15); Aspartate Amino Transferase 27 U/L (17-59); Bilirubin,Total 0.4 mg/dl (0.2-1.3); Blood Urea Nitrogen 21 mg/dl (9-20); Calcium 8.7 mg/dl (8.4-10.2); Carbon Dioxide 25 mmol/L (22.0-30.0); Creatinine Clearance Estimated 108 mL/min (50-200); Estimated Glomerular Filt Rate 71 ml/min (>60); GFR (African American) 85 ML/MIN (>60); Globulin 3.1 g/dL (1.3-3.2); Glucose 94 mg/dl (74-100); Total Protein,Serum 6.8 g/dl (6.3-8.2)
[2021-03-12 05:06] LABS: Magnesium 2.1 mg/dl (1.6-2.3)
--- NOTE | 2021-03-12 06:12 | PC.NURSE ---
patient currently resting with eyes closed. banking consultant has shown sr in the 60s to 90s with rare pvcs, last run noted to be be over two hours ago.
--- NOTE | 2021-03-12 08:48 | HMH.ACPN2 ---
Internal Medicine - PN: Subj *Date: 03/12/21 *Time: 08:48 Interval history: Patient's main complaint today is anxiety and nervousness. He has lots of leg twitching. His cardiac dysrhythmias continue, back on a lidocaine drip. Discussed case with cardiology. Exam Vital signs and Labs for Last 24 Hours: Temp Pulse Resp BP Pulse Ox 97.9 F 86 21 128/92 H 96 03/12/21 04:15 03/12/21 07:00 03/12/21 07:00 03/12/21 07:00 03/12/21 07:00 Laboratory Results - last 24 hr 03/12/21 03:30: WBC 10.0 D, RBC 4.89, Hgb 13.4 L, Hct 41.7 L, MCV 85.2, MCH 27.3, MCHC 32.1, RDW 13.9, Plt Count 263, MPV 8.4, Neut % (Auto) 60.8, Lymph % (Auto) 26.8, [place] % (Auto) 8.6, Eos % (Auto) 3.1, Baso % (Auto) 0.8, Neut # (Auto) 6.1, Lymph # (Auto) 2.7, [place] # (Auto) 0.9, Eos # (Auto) 0.3, Baso # (Auto) 0.1 03/12/21 03:30: Sodium 143, Potassium 3.6 D, Chloride 110 H, Carbon Dioxide 25, Anion Gap 11.6, BUN 21 H, Creatinine 1.10, Estimated Creat Clear 108, Estimated GFR 71, Est GFR ( Amer) 85 D, Glucose 94, Calcium 8.7, Magnesium 2.1, Total Bilirubin 0.4, AST 27, ALT 24, Alkaline Phosphatase 72, Total Protein 6.8, Albumin 3.7, Globulin 3.1, Albumin/Globulin Ratio 1.2 03/12/21 03:30: Sodium 143, Potassium 3.6, Chloride 110 H, Carbon Dioxide 26, Anion Gap 10.6, BUN 22 H, Creatinine 1.10, Estimated Creat Clear 109, Estimated GFR 71, Est GFR ( Amer) 85, Glucose 95, Calcium 8.7, Magnesium 2.1, Troponin I 2.10 H I & O for Last 24 hours: Intake & Output 03/09/21 03/10/21 03/11/21 07/14/21 11:59 11:59 11:59 11:59 Intake Total 2382 / 2382 960 / 960 1080 / 1080 720 / 720 Output Total 1525 / 1525 2450 / 2450 2550 / 2550 2480 / 2480 Balance 857 / 857 -1490 / -1490 -1470 / -1470 -1760 / -1760 Weight 224 lb 1 oz 214 lb 211 lb 6 oz Narrative: Alert and pleasant. Lungs clear, heart rate regular with occasional ectopic beats and he is now converted into a trigeminy according to the rhythm strip. Abdomen soft and benign no distal edema in his remaining leg. ENT exam clear. Patient is pleasant and talkative. Assessment and Plan (1) Anxiety disorder Status: Acute Category: Medical Code(s): F41.9 - Anxiety disorder, unspecified (2) GERD (gastroesophageal reflux disease) Status: Acute Category: Medical Code(s): K21.9 - Gastro-esophageal reflux disease without esophagitis (3) Non-ST elevation [place] (NSTEMI) Status: Acute Category: Medical Code(s): I21.4 - Non-ST elevation (NSTEMI) myocardial infarction (4) Ventricular tachycardia Status: Acute Category: Medical Code(s): I47.2 - Ventricular tachycardia (5) Tobacco use disorder Status: Acute Category: Medical Code(s): F17.200 - Nicotine dependence, unspecified, uncomplicated (6) Hyperlipidemia Status: Acute Category: Medical Code(s): E78.5 - Hyperlipidemia, unspecified (7) History of hypertension Status: Acute Category: Medical Code(s): Z86.79 - Personal history of other diseases of the circulatory system - Assessment and plan all Dx Assessment and Plan for all problems:: Pump of Seroquel at night to 150. Cardiology continues to work with patient's dysrhythmia. Check ferritin/B12 and start magnesium for his restless leg/nighttime tremors.
--- NOTE | 2021-03-12 09:42 | HMH.PNCARD ---
Subjective Date: 03/12/21 Time: 08:00 Principal diagnosis: NSTEMI, mod-severe MR, CHF Interval history: 50-year-old white male in bed in no acute distress. He does relate some difficulty sleeping last evening despite Ativan and Seroquel therapy. Patient was noted to have recurrent prolonged episodes of ventricular tachycardia last evening that prompted reinstitution of lidocaine therapy. No cardioversion was required. Patient was asymptomatic during these times. Telemetry this morning shows sinus rhythm in the 80-90 bpm range with rare PVCs. I discussed with the patient that he will need a defibrillator prior to discharge but will continue to adjust his oral medications and try to discontinue lidocaine drip. Dr. Dc is out of town until Wednesday and we recommend patient continue monitoring here in the hospital until that time due to the high likelihood that he would have sudden cardiac without close observation and emergency treatment capabilities available. Exam Vital signs and Labs for Last 24 Hours: Temp Pulse Resp BP Pulse Ox 98.1 F 82 24 123/77 98 03/12/21 08:00 03/12/21 08:00 03/12/21 08:00 03/12/21 08:00 03/12/21 08:00 Laboratory Results - last 24 hr 03/12/21 03:30: WBC 10.0 D, RBC 4.89, Hgb 13.4 L, Hct 41.7 L, MCV 85.2, MCH 27.3, MCHC 32.1, RDW 13.9, Plt Count 263, MPV 8.4, Neut % (Auto) 60.8, Lymph % (Auto) 26.8, [place] % (Auto) 8.6, Eos % (Auto) 3.1, Baso % (Auto) 0.8, Neut # (Auto) 6.1, Lymph # (Auto) 2.7, [place] # (Auto) 0.9, Eos # (Auto) 0.3, Baso # (Auto) 0.1 03/12/21 03:30: Sodium 143, Potassium 3.6 D, Chloride 110 H, Carbon Dioxide 25, Anion Gap 11.6, BUN 21 H, Creatinine 1.10, Estimated Creat Clear 108, Estimated GFR 71, Est GFR ( Amer) 85 D, Glucose 94, Calcium 8.7, Magnesium 2.1, Total Bilirubin 0.4, AST 27, ALT 24, Alkaline Phosphatase 72, Total Protein 6.8, Albumin 3.7, Globulin 3.1, Albumin/Globulin Ratio 1.2 03/12/21 03:30: Sodium 143, Potassium 3.6, Chloride 110 H, Carbon Dioxide 26, Anion Gap 10.6, BUN 22 H, Creatinine 1.10, Estimated Creat Clear 109, Estimated GFR 71, Est GFR ( Amer) 85, Glucose 95, Calcium 8.7, Magnesium 2.1, Troponin I 2.10 H I & O for Last 24 hours: Intake & Output 03/09/21 03/10/21 03/11/21 03/12/21 11:59 11:59 11:59 11:59 Intake Total 2382 / 2382 960 / 960 1080 / 1080 720 / 720 Output Total 1525 / 1525 2450 / 2450 2550 / 2550 2880 / 2880 Balance 857 / 857 -1490 / -1490 -1470 / -1470 -2160 / -2160 Weight 224 lb 1 oz 214 lb 211 lb 6 oz - Constitutional no acute distress - *Routine HEENT Exam Head: Present: normocephalic Eye: Present: EOMI, PERRL ENT: Present: mucous membranes moist - *Routine Neck Exam Present: supple. Absent: lymphadenopathy - *Routine Respiratory Exam Present: CTA bilaterally - *Routine Cardiovascular Exam Present: RRR - *Routine Abdominal Exam Present: soft, normoactive bowel sounds. Absent: tenderness - *Routine Extremities Exam Absent: cyanosis, clubbing, edema - *Routine Skin Exam Present: warm. Absent: rash - *Routine Neurological Exam Present: alert, oriented X3 Progress Note: A&P (1) Non-ST elevation [place] (NSTEMI) Status: Acute (2) Ventricular tachycardia Status: Acute (3) Anxiety disorder Status: Acute (4) GERD (gastroesophageal reflux disease) Status: Acute (5) Tobacco use disorder Status: Acute (6) Hyperlipidemia Status: Acute (7) History of hypertension Status: Acute (8) Ischemic cardiomyopathy Status: Acute (9) Moderate to severe mitral regurgitation Status: Acute Assessment and Plan for All Diagnoses:: 1. Non-ST elevation [place] with mild cardiomyopathy, continue aspirin and Plavix therapy. Continue lisinopril 10 mg twice daily and will add beta-nini therapy 2. Moderate to severe MR felt secondary to non-ST [place] and likely papillary muscle dysfunction. Continue Lasix therapy 3. Recurrent nonsustained ventricular tachycardia that resolv
[2021-03-12 10:02] LABS: Thyroid Stimulating Hormone 7.67 uIU/mL (0.465-4.68)
[2021-03-12 10:21] LABS: Vitamin B12 308 pg/mL (239-931)
[2021-03-12 11:33] LABS: Ferritin 184 ng/ml (17.9-464)
--- NOTE | 2021-03-12 14:00 | PC.NURSE ---
Lidocaine gtt titrated to 8 ML/HR (1 MG/Minute) at this time per Willem Michael.
[2021-03-13] VITALS (13 sets, daily range): BP systolic 92–139; BP diastolic 53–86; PULSE 70–89; RESP 14–22; TEMP 36.3–36.6; O2SAT 92–98; BMI 29.8
--- NOTE | 2021-03-13 08:05 | PC.NURSE ---
Lidocaine drip stopped at this time, per Tin [place] face to face order
--- NOTE | 2021-03-13 08:18 | HMH.PNCARD ---
Subjective Date: 03/13/21 Time: 08:18 Principal diagnosis: NSTEMI, mod-severe MR, CHF Interval history: 50-year-old white male in bed in no acute distress. Denies any chest pain. He continues to have persistent right subscapular discomfort that began prior to his hospitalization and which he was taking 600 mg of ibuprofen along with Tylenol couple times a day to obtain relief. Symptom is aggravated by movement but not by breathing. Patient continues on lidocaine 1 mg/min with no ectopy overnight. Blood pressure is stable and heart rate still in the 80-90 bpm range after starting beta-nini therapy. Discussed AICD implantation and restrictions post procedure. Due to the patient's right [id number] amputation and inability to wear his prosthesis he will need a wheelchair for home use. Exam Vital signs and Labs for Last 24 Hours: Temp Pulse Resp BP Pulse Ox 98 F 76 14 122/76 94 L 03/13/21 04:00 03/13/21 06:00 03/13/21 06:00 03/13/21 06:00 03/13/21 06:00 Laboratory Results - last 24 hr 03/12/21 03:30: Ferritin 184, Vitamin B12 308, TSH 7.67 H D 03/13/21 06:15: WBC 8.9, RBC 3.25 L D, Hgb 8.5 L, Hct 26.8 L, MCV 82.4, MCH 26.1 L, MCHC 31.7 L, RDW 16.0, Plt Count 336 D, MPV 7.6, Neut % (Auto) 77.7, Lymph % (Auto) 13.8, [place] % (Auto) 7.4, Eos % (Auto) 1.1, Baso % (Auto) 0.1, Neut # (Auto) 6.9, Lymph # (Auto) 1.2, [place] # (Auto) 0.7, Eos # (Auto) 0.1, Baso # (Auto) 0.0 03/13/21 06:15: Sodium 136, Potassium 3.9, Chloride 99, Carbon Dioxide 32 H D, Anion Gap 8.9, BUN 13 D, Creatinine 0.80 D, Estimated Creat Clear 149, Estimated GFR 102, Est GFR ( Amer) 123 D, Glucose 119 H, Calcium 7.5 L D, Total Bilirubin 1.0, AST 33, ALT 15 D, Alkaline Phosphatase 49, Total Protein 5.0 L D, Albumin 3.0 L D, Globulin 2.0, Albumin/Globulin Ratio 1.5 I & O for Last 24 hours: Intake & Output 03/10/21 03/11/21 03/12/21 03/13/21 11:59 11:59 11:59 11:59 Intake Total 960 / 960 1080 / 1080 720 / 720 1388 / 1388 Output Total 2450 / 2450 2550 / 2550 3305 / 3305 2700 / 2700 Balance -1490 / -1490 -1470 / -1470 -2585 / -2585 -1312 / -1312 Weight 214 lb 211 lb 6 oz 213 lb 4 oz - Constitutional no acute distress - *Routine HEENT Exam Head: Present: normocephalic Eye: Present: EOMI, PERRL ENT: Present: mucous membranes moist - *Routine Neck Exam Present: supple. Absent: lymphadenopathy - *Routine Respiratory Exam Present: CTA bilaterally - *Routine Cardiovascular Exam Present: RRR - *Routine Abdominal Exam Present: soft, normoactive bowel sounds. Absent: tenderness - *Routine Extremities Exam Absent: cyanosis, clubbing, edema - *Routine Skin Exam Present: warm. Absent: rash - *Routine Neurological Exam Present: alert, oriented X3 Progress Note: A&P (1) Non-ST elevation [place] (NSTEMI) Status: Acute (2) Ventricular tachycardia Status: Acute (3) Anxiety disorder Status: Acute (4) GERD (gastroesophageal reflux disease) Status: Acute (5) Tobacco use disorder Status: Acute (6) Hyperlipidemia Status: Acute (7) History of hypertension Status: Acute (8) Ischemic cardiomyopathy Status: Acute (9) Moderate to severe mitral regurgitation Status: Acute (10) Musculoskeletal back pain Status: Acute (11) Systolic congestive heart failure Status: Acute Assessment and Plan for All Diagnoses:: 1. Non-ST elevation [place] with mild cardiomyopathy, continue aspirin and Plavix therapy. Continue lisinopril 10 mg twice daily and bisoprolol 5 mg daily. 2. Moderate to severe MR felt secondary to non-ST [place] and likely papillary muscle dysfunction. Continue Lasix therapy 3. Recurrent nonsustained ventricular tachycardia that resolved with reinstitution of lidocaine therapy. Continue amiodarone 200 mg twice daily and bisoprolol 5 mg starting daily. Will discontinue lidocaine today and continue to monitor on telemetry.. 4. We will plan to proceed with AICD implantation tomorrow.
--- NOTE | 2021-03-13 08:37 | HMH.ACPN2 ---
Internal Medicine - PN: Subj *Date: 03/13/21 *Time: 08:37 Interval history: Overall patient feels much better. Slept better last night with Seroquel 150. Exam Vital signs and Labs for Last 24 Hours: Temp Pulse Resp BP Pulse Ox 98 F 76 14 122/76 94 L 03/13/21 04:00 03/13/21 06:00 03/13/21 06:00 03/13/21 06:00 03/13/21 06:00 Laboratory Results - last 24 hr 03/12/21 03:30: Ferritin 184, Vitamin B12 308, TSH 7.67 H D 03/13/21 06:15: WBC 8.9, RBC 3.25 L D, Hgb 8.5 L, Hct 26.8 L, MCV 82.4, MCH 26.1 L, MCHC 31.7 L, RDW 16.0, Plt Count 336 D, MPV 7.6, Neut % (Auto) 77.7, Lymph % (Auto) 13.8, [place] % (Auto) 7.4, Eos % (Auto) 1.1, Baso % (Auto) 0.1, Neut # (Auto) 6.9, Lymph # (Auto) 1.2, [place] # (Auto) 0.7, Eos # (Auto) 0.1, Baso # (Auto) 0.0 03/13/21 06:15: Sodium 136, Potassium 3.9, Chloride 99, Carbon Dioxide 32 H D, Anion Gap 8.9, BUN 13 D, Creatinine 0.80 D, Estimated Creat Clear 149, Estimated GFR 102, Est GFR ( Amer) 123 D, Glucose 119 H, Calcium 7.5 L D, Total Bilirubin 1.0, AST 33, ALT 15 D, Alkaline Phosphatase 49, Total Protein 5.0 L D, Albumin 3.0 L D, Globulin 2.0, Albumin/Globulin Ratio 1.5 I & O for Last 24 hours: Intake & Output 03/10/21 03/11/21 03/12/21 03/13/21 11:59 11:59 11:59 11:59 Intake Total 960 / 960 1080 / 1080 720 / 720 1388 / 1388 Output Total 2450 / 2450 2550 / 2550 3305 / 3305 2700 / 2700 Balance -1490 / -1490 -1470 / -1470 -2585 / -2585 -1312 / -1312 Weight 214 lb 211 lb 6 oz 213 lb 4 oz Narrative: Currently in sinus rhythm. Off lidocaine drip. Alert, pleasant. Talkative. Lungs clear, abdomen soft. No distal edema. Neurologically intact. Assessment and Plan (1) Non-ST elevation [place] (NSTEMI) Status: Acute Category: Medical Code(s): I21.4 - Non-ST elevation (NSTEMI) myocardial infarction (2) Ventricular tachycardia Status: Acute Category: Medical Code(s): I47.2 - Ventricular tachycardia (3) Anxiety disorder Status: Acute Category: Medical Code(s): F41.9 - Anxiety disorder, unspecified (4) GERD (gastroesophageal reflux disease) Status: Acute Category: Medical Code(s): K21.9 - Gastro-esophageal reflux disease without esophagitis (5) Tobacco use disorder Status: Acute Category: Medical Code(s): F17.200 - Nicotine dependence, unspecified, uncomplicated (6) Hyperlipidemia Status: Acute Category: Medical Code(s): E78.5 - Hyperlipidemia, unspecified (7) History of hypertension Status: Acute Category: Medical Code(s): Z86.79 - Personal history of other diseases of the circulatory system (8) Ischemic cardiomyopathy Status: Acute Category: Medical Code(s): I25.5 - Ischemic cardiomyopathy (9) Moderate to severe mitral regurgitation Status: Acute Category: Medical Code(s): I34.0 - Nonrheumatic mitral (valve) insufficiency (10) Musculoskeletal back pain Status: Acute Category: Medical Code(s): M54.9 - Dorsalgia, unspecified (11) Systolic congestive heart failure Status: Acute Category: Medical Code(s): I50.20 - Unspecified systolic (congestive) heart failure - Assessment and plan all Dx Assessment and Plan for all problems:: Anxiety disorder much better with higher dose Seroquel. Restless leg being treated with Requip all blood testing pending. Cardiology plans for defibrillator on Wednesday. Post NC/stent placement medications remain on board. Blood pressure has been well controlled.
--- NOTE | 2021-03-13 13:56 | DIET.NUTRFU ---
PO intakes 75%, weight stable, no edema noted. Pt has been provided diet edu/counseling for heart health low sodium diet.
--- NOTE | 2021-03-13 15:22 | PC.NURSE ---
per Dr Montoya and Tin rubin, ok to take pt out of sd
--- NOTE | 2021-03-13 16:42 | PC.NURSE ---
pt has slept most of this shift. lungs are clear, bowel sounds are active in all quads. nad noted. pt is aware and agreeable to pacemaker insertion in the am. he is aware that after midnight he will be unable to eat or drink anything. pt worked with PT this am, but refused to walk with them this afternoon. will continue to monitor.,
[2021-03-13 18:52] LABS: Basophils # 0.1 K/mm3 (0-0.2); Basophils % 1.1 % (0.1-2.0); Eosinophils # 0.3 K/mm3 (0.0-0.4); Lymphocytes # 1.9 K/mm3 (0.7-4.5); Neutrophils # 7.3 K/mm3 (1.8-7.8); Red Cell Distribution Width 14.7 % (11.5-17.5)
[2021-03-13 18:58] LABS: Eosinophils % 3.4 % (0.1-12.0); Hematocrit 42.1 % (42.0-52.0); Lymphocytes % 18.5 % (10-50); Mean Corpuscular Hemoglobin 28.4 pg (27.0-31.2); Mean Corpuscular Volume 86.3 fl (80-94); Mean Platelet Volume 8.4 fl (7.4-10.4); Monocytes # 0.4 K/mm3 (0.1-1.0); Platelet Count 282 K/mm3 (142-424); Red Blood Count 4.88 M/mm3 (4.60-6.20)
[2021-03-13 19:00] LABS: Hemoglobin 13.9 g/dL (14.1-18.0)
[2021-03-14] VITALS (15 sets, daily range): BP systolic 90–137; BP diastolic 63–77; PULSE 67–85; RESP 16–19; TEMP 36.3–36.7; O2SAT 93–99; BMI 30.1
--- NOTE | 2021-03-14 | IR_ITS ---
APPROVED REPORT Patient Location[facility] Liaison: ITZ Cervantes RT (R) PROCEDURES 1. Pocket formation for AICD. 2. Placement of atrial sensing and pacing coil into the right atrial appendage. 3. Placement of a ventricular sensing, pacing and shocking coil in the right ventricular apex. 4. Permanent AICD placement. INDICATION Systolic Congestive Heart Failure, ejection < 35%, [place] Heart Assoication Class 3 Congestive Heart Failure, Monomorphic VT, Ischemic Cardiomyopathy Informed consent was obtained prior to the procedure. COMPLICATIONS None Estimated Blood Loss: Less than 10 mls TECHNIQUE 1% Lidocaine with epinephrine used to anesthetized the left anterior aspect of the chest. Scalpel was used to make the initial cutaneous incision while electrocautery was used to dissect down tinto the fascia. The fascia was lifted off the pectoralis muscle and digitally manipulated creating a pocket for the defibrillator. The patient was then placed in Trendelenburg position and the subclavian vein was accessed 2 times via the Selinger technique. A 8 Bengali sheath was placed under fluoroscopic guidance into the subclavian vein. The dilator was removed from the sheath. Using fluoroscopic guidance, the ventricular lead was placed into the right ventricular apex, screwed and secured into place. Electronic interrogation proved acceptable thresholds and voltage within the lead. Using 3-0 silk, the ventricular lead was then secured into place and sheath peeled away. A 6 Bengali fresh sheath and dilator was placed over the existing wire. Using fluoroscopic guidance, the atrial lead was then placed into the right atrial appendage and screwed and secured in place. Electrical interrogation demonstrated acceptable thresholds and voltage number. The atrial lead was then secured into place using 3-0 silk and sheath peeled away. 1 gram of Ancef was used to flush the pocket. All 3 leads were connected to generator and tested via computer. The defibrillator then secured to the fascia. Monocryl was used to close the subcutaneous layers while sasha were used to close the cutaneous layer. A pressure dressing was placed and the patient was transferred to the postop holding area in stable condition for postoperative care. INTERROGATION Generator Model number: LAKHWINDER [address]NG DR, D233 Generator Serial number: [id number] Atrial lead model number: INGEVITY+, 7841 Atrial lead serial number: [id number] P-wave: 4.5mV Impedence: 596 ohms Threshold: 1.0V@0.4ms Right Ventricular lead model number: NATASHA 4-FRONT, 0675 Right Ventricular lead serial number: [id number] R-wave: 18.0mV Impedence: 609 ohms Threshold: 1.0V@0.4ms Pacing Parameters: Mode: DDD RYTHMIQ: AAI with VVI Backup Base/Max Track: 60/130 ppm ICD Rate Cutoffs: VF: 200 bpm, 5.0 sec., Quick convert, 41Jx8 VT-1: 170 bpm, 10 sec., Rythmiq, ATP, 41Jx6 VT-2: 140 bpm, 10 sec., Monitor only No diaphragmatic stimulation at 10 volts. IMPRESSION 1. Successful pocket formation for AICD. 2. Successful placement of atrial sensing and pacing coil into the right atrial appendage. 3. Successful placement of a ventricular sensing, pacing and shocking coil in the right ventricular apex. 4. Successful permanent AICD placement. PLAN 1. Post op wound care, follow up office visit Electronically signed by : Emery Palacio, 03/14/2021 14:53:07
--- NOTE | 2021-03-14 00:07 | PC.NURSE ---
HE is A&Ox3. He received PRN medication for back and right shoulder pain. He reports his last BM was on 03/13/21. NSR with inverted T wave on telemetry. He continues on RA. He is NPO at this time.
[2021-03-14 07:06] LABS: Alanine Aminotransferase 20 U/L (12-78); Albumin Level 3.5 g/dl (3.5-5.0); Albumin/Globulin Ratio 1.2 (1.1-1.8); Alkaline Phosphatase 65 U/L (38-126); Anion Gap 9.6 mEq/L (5-15); Aspartate Amino Transferase 19 U/L (17-59); Basophils # 0.1 K/mm3 (0-0.2); Basophils % 1.1 % (0.1-2.0); Bilirubin,Total 0.5 mg/dl (0.2-1.3); Blood Urea Nitrogen 20 mg/dl (9-20); Carbon Dioxide 31 mmol/L (22.0-30.0); Chloride 106 mmol/L (98-107); Creatinine Clearance Estimated 93 mL/min (50-200); Eosinophils # 0.4 K/mm3 (0.0-0.4); Eosinophils % 3.7 % (0.1-12.0); Estimated Glomerular Filt Rate 58 ml/min (>60); GFR (African American) 70 ML/MIN (>60); Glucose 107 mg/dl (74-100); Hematocrit 41.2 % (42.0-52.0); Hemoglobin 13.6 g/dL (14.1-18.0); Lymphocytes # 1.9 K/mm3 (0.7-4.5); Lymphocytes % 19.4 % (10-50); Magnesium 2.2 mg/dl (1.6-2.3); Mean Corpuscular HGB Conc 32.9 g/dL (31.8-35.4); Mean Corpuscular Hemoglobin 28.4 pg (27.0-31.2); Mean Corpuscular Volume 86.2 fl (80-94); Monocytes # 0.6 K/mm3 (0.1-1.0); Monocytes % 5.7 % (1.7-9.3); Neutrophils # 6.9 K/mm3 (1.8-7.8); Neutrophils % 70.1 % (37.0-80.0); Platelet Count 254 K/mm3 (142-424); Potassium 4.6 mmoL/L (3.5-5.1); Red Blood Count 4.78 M/mm3 (4.60-6.20); Red Cell Distribution Width 14.8 % (11.5-17.5); Sodium 142 mmol/L (136-145); Total Protein,Serum 6.5 g/dl (6.3-8.2); White Blood Count 9.9 K/mm3 (4.8-10.8)
[2021-03-14 07:14] LABS: Calcium 8.8 mg/dl (8.4-10.2)
--- NOTE | 2021-03-14 07:39 | HMH.ACPN2 ---
Internal Medicine - PN: Subj *Date: 03/14/21 *Time: 08:42 Interval history: Did well overnight, awaiting placement of AICD today by cardiology. Patient will nervous this morning but overall feels well. No arrhythmia overnight. Blood pressure well controlled. Reviewed labs this morning, slight bump in creatinine otherwise normal. No complaints of chest pain, shortness of breath, nausea or vomiting. Exam Vital signs and Labs for Last 24 Hours: Temp Pulse Resp BP Pulse Ox 98.0 F 79 18 113/73 99 03/14/21 04:00 03/14/21 04:00 03/14/21 04:00 03/14/21 04:00 03/14/21 04:00 Laboratory Results - last 24 hr 03/13/21 18:43: WBC 10.0, RBC 4.88 D, Hgb 13.9 L D, Hct 42.1, MCV 86.3, MCH 28.4, MCHC 33.0, RDW 14.7, Plt Count 282, MPV 8.4, Neut % (Auto) 73.0, Lymph % (Auto) 18.5, [place] % (Auto) 4.0, Eos % (Auto) 3.4, Baso % (Auto) 1.1, Neut # (Auto) 7.3, Lymph # (Auto) 1.9, [place] # (Auto) 0.4, Eos # (Auto) 0.3, Baso # (Auto) 0.1 03/14/21 06:28: WBC 9.9, RBC 4.78, Hgb 13.6 L, Hct 41.2 L, MCV 86.2, MCH 28.4, MCHC 32.9, RDW 14.8, Plt Count 254, MPV 8.0, Neut % (Auto) 70.1, Lymph % (Auto) 19.4, [place] % (Auto) 5.7, Eos % (Auto) 3.7, Baso % (Auto) 1.1, Neut # (Auto) 6.9, Lymph # (Auto) 1.9, [place] # (Auto) 0.6, Eos # (Auto) 0.4, Baso # (Auto) 0.1 03/14/21 06:28: Sodium 142, Potassium 4.6, Chloride 106, Carbon Dioxide 31 H, Anion Gap 9.6, BUN 20 D, Creatinine 1.30 H D, Estimated Creat Clear 93, Estimated GFR 58 L, Est GFR ( Amer) 70 D, Glucose 107 H, Calcium 8.8 D, Magnesium 2.2, Total Bilirubin 0.5, AST 19 D, ALT 20 D, Alkaline Phosphatase 65, Total Protein 6.5 D, Albumin 3.5 D, Globulin 3.0, Albumin/Globulin Ratio 1.2 I & O for Last 24 hours: Intake & Output 03/11/21 03/12/21 03/13/21 03/14/21 23:59 23:59 23:59 23:59 Intake Total 1080 / 1080 908 / 1268 1440 / 1440 40 / 40 Output Total 1500 / 1980 3505 / 3505 2024 / 2024 880 / 880 Balance -420 / -900 -2597 / -2237 -585 / -585 -840 / -840 Weight 97.069 kg 96 kg 96.729 kg 97.522 kg - Constitutional no acute distress - *Routine HEENT Exam Head: Present: normocephalic Eye: Present: EOMI, PERRL ENT: Present: mucous membranes moist - *Routine Neck Exam Present: supple. Absent: lymphadenopathy - *Routine Respiratory Exam Present: CTA bilaterally - *Routine Cardiovascular Exam Present: RRR - *Routine Abdominal Exam Present: soft, normoactive bowel sounds. Absent: tenderness - *Routine Extremities Exam Absent: cyanosis, clubbing, edema - *Routine Skin Exam Present: warm. Absent: rash - *Routine Neurological Exam Present: alert, oriented X3 Assessment and Plan (1) Non-ST elevation [place] (NSTEMI) Status: Acute Category: Medical Code(s): I21.4 - Non-ST elevation (NSTEMI) myocardial infarction (2) Ventricular tachycardia Status: Acute Category: Medical Code(s): I47.2 - Ventricular tachycardia (3) Anxiety disorder Status: Acute Category: Medical Code(s): F41.9 - Anxiety disorder, unspecified (4) GERD (gastroesophageal reflux disease) Status: Acute Category: Medical Code(s): K21.9 - Gastro-esophageal reflux disease without esophagitis (5) Tobacco use disorder Status: Acute Category: Medical Code(s): F17.200 - Nicotine dependence, unspecified, uncomplicated (6) Hyperlipidemia Status: Acute Category: Medical Code(s): E78.5 - Hyperlipidemia, unspecified (7) History of hypertension Status: Acute Category: Medical Code(s): Z86.79 - Personal history of other diseases of the circulatory system (8) Ischemic cardiomyopathy Status: Acute Category: Medical Code(s): I25.5 - Ischemic cardiomyopathy (9) Moderate to severe mitral regurgitation Status: Acute Category: Medical Code(s): I34.0 - Nonrheumatic mitral (valve) insufficiency (10) Musculoskeletal back pain Status: Acute Category: Medical Code(s): M54.9 - Dorsalgia, unspecified (11) Systolic congestive heart failure Status: Acute
--- NOTE | 2021-03-14 10:00 | PC.NURSE ---
PT WOULD BENEFIT WITH WHEELCHAIR FOR MOBILITY DUE TO ABOVE KNEE AMPUTATION AND PACEMAKER PLACEMENT TODAY. AFTER PACEMAKER PLACEMENT PT WILL BE UNABLE TO USE CRUTCHES.
--- NOTE | 2021-03-14 10:27 | SW/DCPLANNER ---
SENT AN ORDER FOR WHEELCHAIR FOR THIS PATIENT WHEN DISCHARGING FROM THE HOSPITAL.... PATIENT USES A CRUTCHES AND WILL NOT BE ABLE TO DO SO AFTER PACEMAKER PLACEMENT... PATIENT HAS CHOSEN [facility] TO BE DELIVERED TO THE HOSPITAL AND THIS WAS ORDERED WITH ANTICIPATING DISCHARGE EITHER LATER TODAY OR [facility]...
--- NOTE | 2021-03-14 13:35 | P.PN_ITS ---
[facility] Anesthesia Checklist - Patient Identification Patient Identification: Arm Band - Structural Data Admitted From: Home Planned Operative Procedure/s: AICD Consent for Planned Operative Procedure(s) Verified: Yes - NPO Status Verified Time NPO: 00:00 - Airway Assessment C-Spine Mobility Assessed: Yes TMJ Mobility Assessed: Yes Dentition: Good Dentition - Neurological Assessment Level of Consciousness: Awake Hx Seizures: No Numbness or tingling in extremities: No - Anesthesia Plan Anesthesia Risk discussed: Yes Anesthesia Plan: Verified ASA Class: III Anesthesia Type: MAC [facility] History I have reviewed the patient's past medical history: Yes Medical History: Reports:: Arrhythmia, Cardiomyopathy, Congestive Heart Failure, Gastroesophageal Reflux Disease(GERD), Hyperlipidemia, Hypertension, Myocardial Infarction Denies:: Diabetes Mellitus Type 1, Diabetes Mellitus Type 2, Internal Pacemaker, MRSA *Have you ever received a pneumonia vaccine?: No *Have you received a flu vaccine this season?: No Anesthesia experience/problems:: None Laterality Cases: Right: Other Other Surgeries: No: Pacemaker Amputation: Yes ([facility] lower extremity) - *Social History Smoking Status: Current every day smoker Tobacco Type: cigarettes # Packs/Day (cigarettes): 1 Alcohol Intake: current Alcohol Intake Frequency:: a few times a month Substance Use Type: denies use *Occupational Status:: disabled Housing: house Household Members: significant other *Travel in the last 8 weeks: None Family Hx:: No significant family history
--- NOTE | 2021-03-14 14:01 | XR_ITS ---
PROCEDURE: XR CHEST PORTABLE CLINICAL HISTORY: post pacemaker COMPARISON: CR CXR CHEST(2 VIEWS-NOT PORTABLE) from 05/23/[address] CHEST W/ CONTRAST from 06/02/2013 CR XR CHEST PORTABLE from 03/08/2021 FINDINGS: Cardiomegaly without failure. Bipolar pacemaker is present from left subclavian approach with a right atrial and a right ventricular lead noted. No evidence of pneumothorax. Mild atelectatic changes left lower lobe. The remaining lungs are clear. No acute bony abnormalities. IMPRESSION: Status post pacemaker placement with good lead position and no evidence of pneumothorax. Dictated by: Terry Carbajal MD 03/14/2021 14:49 Terry Carbajal MD in [place] 03/14/2021 14:49
--- NOTE | 2021-03-14 19:46 | PC.NURSE ---
PT IS RESTING IN BED. PT TOLERATED PROCEDURE WELL. VSS. DRESSING TO THE CHEST C/D/I. EATING AND DRINKING WELL. NSR ON THE MONITOR. MEDICATED PER MAR FOR DISCOMFORT. LUNG SOUNDS CLEAR. ABDOMEN SOFT/NON TENDER WITH ACTIVE BOWEL SOUNDS. KA. PT REQUESTED TO LEAVE THE FLOOR AT 1800 TO GO OUTSIDE TO SEE HIS DOG. PT WAS ENCOURAGED NOT TO LEAVE THE FLOOR BUT HE STATED HE HAS SIGNED A PAPER AND HE WOULD ONLY BE GONE FOR A FEW MINUTES. IV'S WRAPPED. VSS WHEN PT RETURNED BACK TO THE FLOOR. WILL CONTINUE TO MONITOR.
[2021-03-15] VITALS: BP 95/60; PULSE 70; PULSE 74; RESP 18; TEMP 36.5; O2SAT 93
--- NOTE | 2021-03-15 03:43 | PC.NURSE ---
Patient has been pleasant this shift. He is alert and oriented x4. He has had some complaints of pain this shift and patient has been medicated appropriately per MAR. Incision site is clean, dry and intact. There is no swelling, redness or bruising noted. He has rested well this shift, other avila. Vital signs are stable. Will continue to monitor. Call light within reach.
[2021-03-15 04:00] VITALS: BP 117/73; PULSE 70; PULSE 74; RESP 16; TEMP 36.5; O2SAT 97
[2021-03-15 05:00] VITALS: BMI 30.2
[2021-03-15 05:42] LABS: Basophils # 0.1 K/mm3 (0-0.2); Monocytes # 0.6 K/mm3 (0.1-1.0)
[2021-03-15 05:47] LABS: Anion Gap 11.7 mEq/L (5-15); Blood Urea Nitrogen 25 mg/dl (9-20); Calcium 8.3 mg/dl (8.4-10.2); Carbon Dioxide 27 mmol/L (22.0-30.0); Chloride 105 mmol/L (98-107); Creatinine Clearance Estimated 101 mL/min (50-200); Estimated Glomerular Filt Rate 64 ml/min (>60); GFR (African American) 77 ML/MIN (>60); Glucose 186 mg/dl (74-100); Magnesium 2.3 mg/dl (1.6-2.3); Potassium 3.7 mmoL/L (3.5-5.1); Sodium 140 mmol/L (136-145)
[2021-03-15 05:48] LABS: Basophils % 0.9 % (0.1-2.0); Eosinophils # 0.3 K/mm3 (0.0-0.4); Eosinophils % 3.1 % (0.1-12.0); Hematocrit 38.4 % (42.0-52.0); Hemoglobin 12.3 g/dL (14.1-18.0); Lymphocytes % 21.4 % (10-50); Mean Corpuscular HGB Conc 32.1 g/dL (31.8-35.4); Mean Corpuscular Hemoglobin 27.8 pg (27.0-31.2); Mean Corpuscular Volume 86.5 fl (80-94); Mean Platelet Volume 8.3 fl (7.4-10.4); Monocytes % 5.8 % (1.7-9.3); Neutrophils # 6.6 K/mm3 (1.8-7.8); Neutrophils % 68.7 % (37.0-80.0); Platelet Count 233 K/mm3 (142-424); Red Blood Count 4.44 M/mm3 (4.60-6.20); Red Cell Distribution Width 14.7 % (11.5-17.5); White Blood Count 9.5 K/mm3 (4.8-10.8)
[2021-03-15 08:00] VITALS: BP 119/69; PULSE 80; PULSE 81; RESP 20; TEMP 36.6; O2SAT 97
--- NOTE | 2021-03-15 08:46 | HMH.DCSUM ---
General - General Admission date:: 03/09/21 Discharge date: 03/15/21 HPI HPI: 50-year-old white male with history of coronary disease, with myocardial infarction in 2014, who has been lost to follow-up in our office because of an incarceration in [facility] for several years. He was apparently released from [facility] in 2018 but has not reestablish care with any physicians or with our office. He continues to smoke and has fairly poor health care maintenance activities, and EMS was called to his home yesterday because of unresponsiveness, sweating and chest pain. Please see ER notes for details, but patient was found to be in V. tach, and amiodarone and other medications were administered in route. In the emergency department he was found to have a non-STEMI, significant ventricular dysrhythmia and taken to [facility]. Catheterization was undertaken before admission to floor revealed complete circumflex obstruction. Stented with good flow and good EF. Patient did have V. tach after the procedure which was aborted with lidocaine administration after amiodarone was unsuccessful. The patient has done well through the night in her stepdown unit and is now in ventricular bigeminy. He has had some anxiety but denies further chest pain. He reports that he has not been taking medication except for about a week ago he found some carvedilol that I had prescribed for him over 5 years ago that he restarted because I thought my heart needed medication. Hospital Course Hospital Course: 50-year-old male admitted for N-STEMI. During hospitalization developed ventricular arrhythmia, severe anxiety. Problems addressed as follows: 1. Non-ST elevation KS with mild cardiomyopathy, continue aspirin and Plavix therapy. Continue lisinopril 10 mg twice daily and bisoprolol 5 mg daily. Tolerated regimen well during hospitalization. Blood pressure at goal. 2. Moderate to severe MR felt secondary to non-ST KS and likely papillary muscle dysfunction. Continue Lasix therapy. Euvolemic at time of discharge 3. Recurrent nonsustained ventricular tachycardia that resolved with reinstitution of lidocaine therapy. Continue amiodarone 200 mg twice daily and bisoprolol 5 mg starting daily. Able to wean off lidocaine drip. Normal sinus rhythm for over 24 hours on day of discharge. 4. AICD implantation on 03/14. Tolerated procedure well with no adverse events. Counseled on no heavy lifting. Patient to mobilize using wheelchair and avoid crutches for the time being until pocket heals. 5. Hyperlipidemia, continue statin therapy 6. Musculoskeletal back pain, chronic and longstanding. Sent home with a few days of oxycodone for his chest painrelated to ICD placement but this will also assist his back pain. No plan for long-term opiate therapy at this time. Will address further in the outpatient setting. 7. Restless leg syndrome, tolerating Requip twice a day. Fair control. Monitor and adjust in the outpatient setting 8. 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 Case management assisted with mobility devices. Patient provided wheelchair for discharge home 9. Anxiety: Initiated on citalopram during hospitalization, tolerating well. Additionally started Seroquel. 150 mg nightly, tolerated well. We will continue this regimen in the outpatient setting. Adjustments at follow-up. Seed Ativan no more than once daily during hospitalization. Did not discharge on Ativan at this time. Examined on day of discharge. Medically stable for discharge home. We will have close follow-up with cardiology in our office. Objective Vital signs: Temp Pulse Resp BP Pulse Ox 97.9 F 81 20 119/69 97 03/15/21 08:00 03/15/21 08:00 03/15/21 08:00 03/15/21 08:00 03/15/21 08:00 Narrative: - Constitutional no acute distress - *Routine HEENT Exam Head: Present: normocepha
--- NOTE | 2021-03-15 10:53 | HMH.PHACLD ---
Darshan Ambrose has received discharge medication counseling on the following medications: ASPIRIN 81MG BISOPROLOL 5MG PLAVIX 75MG ATORVASTATIN 40MG LISINOPRIL 10MG ALL NEW PRESCRIPTIONS WERE SENT TO CLINIC PHARMACY. PATIENT VERBALIZED UNDERSTANDING AND HAD NO QUESTIONS AT THIS TIME. -COTY RODRIGUEZ, PHARMD
== END 2021-03-15 12:27 | disposition home or self-care (01) | DRG 222 ==
LOC: ER 20:55 → 2ND 03-09 00:45 → CATHLAB 03-09 01:24 → 2ND 03-09 15:26
PROVIDERS: Emergency Medicine; Internal Medicine Adolescent Medicine; Internal Medicine Cardiovascular Disease; Admitting Provider Internal Medicine Adolescent Medicine; Emergency Provider Emergency Medicine; Visit Provider Internal Medicine Adolescent Medicine
PROC: 027034Z Dilation of Coronary Artery, One Artery with Drug-eluting Intraluminal Device, Percutaneous Approach (ICD-10-PCS; principal; 2021-03-08 20:50)
PROC: 0JH608Z Insertion of Defibrillator Generator into Chest Subcutaneous Tissue and Fascia, Open Approach (ICD-10-PCS; CPT 33249; principal; 2021-03-14 13:45)
DX: I21.4 Non-ST elevation (NSTEMI) myocardial infarction (principal); I50.21 Acute systolic (congestive) heart failure; I47.2 Ventricular tachycardia; I25.82 Chronic total occlusion of coronary artery; Z89.611 Acquired absence of right leg above knee; F17.210 Nicotine dependence, cigarettes, uncomplicated; K21.9 Gastro-esophageal reflux disease without esophagitis; F41.9 Anxiety disorder, unspecified; I49.8 Other specified cardiac arrhythmias; E78.5 Hyperlipidemia, unspecified; Z82.49 Family history of ischemic heart disease and other diseases of the circulatory system; I25.10 Atherosclerotic heart disease of native coronary artery without angina pectoris; I25.2 Old myocardial infarction; I25.5 Ischemic cardiomyopathy; I34.0 Nonrheumatic mitral (valve) insufficiency; M54.9 Dorsalgia, unspecified; G25.81 Restless legs syndrome; I11.0 Hypertensive heart disease with heart failure
CPT/HCPCS: 33249; 36415; 71045; 80048; 80053; 80076; 82607; 82728; 83605; 83735; 84145; 84443; 84484; 85007; 85025; 85347; 85651; 86140; 92941; 93005; 93306; 93458; 96365; 97116; 97161; 97530; 99152; 99153; 99282; 99283; C1721; C1725; C1760; C1769; C1876; C1895; C1898; C9606; J0282; J1327; J1644; J2405; J2704; J7060; Q9967; U0003

== ENCOUNTER → 2021-04-08 15:19 | Outpatient (CLI) | payer MEDICARE, MEDICAID, SELFPAY ==
--- NOTE | 2021-04-08 15:29 | XR_ITS ---
PROCEDURE: XR CHEST 2V CLINICAL HISTORY: to look at AICD Cardiac dysrhythmia COMPARISON: CR CXR CHEST(2 VIEWS-NOT PORTABLE) from 05/23/[address] CHEST W/ CONTRAST from 06/02/2013 CR XR CHEST PORTABLE from 03/08/2021 CR XR CHEST PORTABLE from 03/14/2021 FINDINGS: Normal heart size. AICD is present from left subclavian approach. The tip lies in the region of the right ventricle. Shock coils lie over the SVC and left brachiocephalic region and right ventricle. Right atrial pacer is present from left subclavian approach. COPD changes. There is minimal blunting of the left CP angle. No lobar consolidation or collapse. No acute bony abnormalities. IMPRESSION: AICD and right atrial pacer present as described above Dictated by: Terry Carbajal MD 04/08/2021 17:28 Terry Carbajal MD in [place] 04/08/2021 17:28
== END ==
PROVIDERS: PCP Internal Medicine Adolescent Medicine; Visit Provider Nurse Practitioner Family
DX: R07.89 Other chest pain (principal)
CPT/HCPCS: 71046

== ENCOUNTER 2024-09-21 16:57 | Inpatient (IN) | payer MEDICARE, MEDICAID, SELFPAY ==
[2024-09-21] VITALS (23 sets, daily range): BP systolic 84–125; BP diastolic 47–65; PULSE 81–102; RESP 12–36; TEMP 36.4–36.7; O2SAT 90–98; BMI 31.0; BMI 24.9
--- NOTE | 2024-09-21 16:53 | ECG_ITS ---
APPROVED REPORT Exam: Resting ECG HR:105 bpm ECG Measurements Heart Rate 105 AXES CA 142 P 66 QRSd 94 QRS 140 QT 346 T 73 QTc 407 Conclusion SINUS TACHYCARDIA RIGHT ATRIAL ENLARGEMENT [0.3mV P-WAVE] POSSIBLE RIGHT VENTRICULAR HYPERTROPHY [SOME/ALL OF: PROMINENT R IN V1, LATE TRANSITION, RAD, TRUDY, SSS] INFERIOR MYOCARDIAL INFARCTION , PROBABLY OLD [40+ ms Q WAVE AND/OR ST/T ABNORMALITY IN II/aVF] ANTEROLATERAL MYOCARDIAL INFARCTION , OF INDETERMINATE AGE [40+ ms Q WAVE IN I/aVL/V3-V6] ABNORMAL ECG Electronically signed by : FABIENNE JEFFRIES, 09/25/2024 22:17:22
--- NOTE | 2024-09-21 16:58 | ED_ITS ---
Discharge Plan Disposition Patient Disposition: Admitted Chief Complaint: Weakness Clinical Impressions Clinical Impression: Stimulant use disorder, Ischemic cardiomyopathy, CHF exacerbation, DKA (diabetic ketoacidosis), Diabetes mellitus, new onset Discharge ED Provider: Daniel Ellis General Adult HPI <ERICKA Ferrell - Last Filed: 09/21/24 16:58> General Chief complaint: Weakness Stated complaint: HYPOTENSIVE Time Seen by Provider: 09/21/24 16:58 Related Data Previous Rx's ?Medication ?Instructions ?Recorded aspirin 81 mg chewable tablet 81 mg PO DAILY 30 days ##30 03/15/21 citalopram 20 mg tablet 20 mg PO DAILY 30 days #30 tabs 03/15/21 clopidogrel 75 mg tablet 75 mg PO DAILY 30 days #30 tabs 03/15/21 famotidine 20 mg tablet 20 mg PO BID 30 days #30 tabs 03/15/21 furosemide 40 mg tablet 40 mg PO DAILY 30 days #30 tabs 03/15/21 quetiapine 100 mg tablet 150 mg (1.5 x 100 mg) PO HS 30 03/15/21 days #30 tabs ropinirole 1 mg tablet 1 mg PO BID 30 days #60 tabs 03/15/21 bisoprolol fumarate 10 mg tablet 20 mg (2 x 10 mg) PO DAILY #60 tabs 04/08/21 sulfamethoxazole 800 2 tab PO BID 14 days #56 tabs 04/08/21 mg-trimethoprim 160 mg tablet (Bactrim DS) esomeprazole magnesium 40 mg See Rx Instructions .Route 10/10/21 capsule,delayed release .COMPLEX #30 caps atorvastatin 40 mg tablet 40 mg PO HS #90 tabs 10/23/22 lisinopril 20 mg tablet 20 mg PO DAILY #90 tabs 10/23/22 amiodarone 200 mg tablet See Rx Instructions .Route 05/31/23 .COMPLEX #90 tabs Allergies Allergy/AdvReac Type Severity Reaction Status Date / Time ticagrelor (From Brilinta) Allergy Mild Verified 06/06/21 10:14 butorphanol (From STADOL) Allergy Unknown Verified 06/06/21 10:14 <Daniel Ellis MD - Last Filed: 09/21/24 20:22> History of Present Illness HPI narrative: Please note that above description of symptoms, in this electronic medical record under categorization of recalled from ER triage doctor by RN are reflective of an initial nursing assessment, however, is not reflective of my full history and physical exam that was personally taken and clarified. Consequentially, this preceding description of symptoms, which may include the patient's categorized chief complaint in the EMR, do not reflect my personal clinical impression, and the ultimate description of history of present illness and patient stated complaints should be deferred to this section of the note. Unless stated otherwise or congruent with this section of the note, additional signs, symptoms, or incongruence should be interpreted as inaccurate with my clinical impression. ON LICENSE OF [facility] <ERICKA Ferrell - Last Filed: 09/21/24 16:58> ON LICENSE OF [facility] Disclaimer: The information contained in this section may have been updated after the patient was seen, as this information can be updated by other users. Medical History (Updated 09/21/24 @ 20:22 by Daniel Ellis MD) Sinus tachycardia CAD (coronary artery disease) Right above-knee amputee Social History Smoking Status: Current every day smoker tobacco type: cigarettes packs per day: 1 alcohol intake: current alcohol intake frequency: a few times a month substance use type: denies use current occupational status: disabled Travel in the last 8 weeks: Inside the [place] household members: significant other housing: house caffeine: Yes Have you lived/traveled outside [place] in past 30 days?: No Contact w/someone who lives/traveled outside US past 30 days?: No Exposure to someone with infectious disease in past 14 days?: No Do you have a fever (greater than 100.4 F or 38 C)?: No Have you tested positive for COVID-19: No Exposed to someone with COVID-19 in past 14 days?: No Do you have a sore throat?: No Do you have a cough?: No Do you have any weakness?: No Do you have any diarrhea?: No Are you experiencing any unusual bleeding?: No Do you have any muscle aches/pain?: No Do you have any abdominal pain?: No Are you experiencing loss of taste or smell?: No Other Medical History Have you received the Flu Vaccine for this season: No Have you received the Pneumonia Vaccine: No <ERICKA Ferrell - Last Filed: 09/21/24 16:58> ROS Obtained: Yes Systems reviewed as appropriate & no additional complaints except as documented Physical Exam <ERICKA Ferrell - Last Filed: 09/21/24 16:58> General General appearance: alert and in no apparent distress Head Head exam: atraumatic and normal inspection Eye Eye exam: Present normal appearance, PERRL and EOMI ENT ENT exam: Present normal exam, normal oropharynx and mucous membranes moist Neck Neck exam: Present normal inspection, full ROM and trachea midline; Absent lymphadenopathy Chest Chest inspection: Present normal inspection and symmetric chest wall rise Respiratory Respiratory exam: Present normal lung sounds bilaterally; Absent accessory muscle use Cardiovascular Cardiovascular exam: Present regular rate, normal rhythm, normal heart sounds, +S1 and +S2 Abdominal Exam Abdominal exam: Present soft and normal bowel sounds; Absent tenderness, guarding or rebound Extremities Exam Extremities exam: Present normal inspection and full ROM Neurological Exam Neurological exam: Present alert, oriented X3 and CN II-XII intact Psychiatric Psychiatric exam: Present normal affect and normal mood Skin Skin exam: Present warm, dry and normal color Lymphatic Lymphatic Findings: no adenopathy <Daniel Ellis MD - Last Filed: 09/21/24 20:22> ENT ENT exam: Present mucous membranes dry Cardiovascular Cardiovascular exam: Present tachycardia Extremities Exam Extremities exam: Present other (Right lower extremity AKA) Neurological Exam Neurological exam: Absent motor sensory deficit Medical Decision Making <ERICKA Ferrell - Last Filed: 09/21/24 16:58> Medical Records Screening: Per USPSTF and CDC recommendations, given the prevalence of disease in our region, it is our hospital?s policy to screen for HIV and viral Hepatitis for all patients aged 18 and over and those with ongoing risk factors. Vital Signs: 09/21/24 16:56 09/21/24 16:57 09/21/24 17:00 Temperature 97.6 F Temperature Source Oral Pulse Rate 102 H 102 H Pulse Rate [Left Radial] 102 H Respiratory Rate 18 18 25 H Blood Pressure 84/56 L 92/47 L Blood Pressure [Right Arm] 84/56 L Blood Pressure Mean Blood Pressure Mean [Right Arm] 65 02 Sat by Pulse Oximetry 98 96 97 Oxygen Delivery Method Room Air Room Air Room Air 09/21/24 17:02 09/21/24 17:30 09/21/24 18:00 Temperature Temperature Source Pulse Rate 101 H 101 H 97 H Pulse Rate [Left Radial] Respiratory Rate 17 20 34 H Blood Pressure 89/54 L 92/58 L 109/56 L Blood Pressure [Right Arm] Blood Pressure Mean Blood Pressure Mean [Right Arm] 02 Sat by Pulse Oximetry 98 97 96 Oxygen Delivery Method Room Air Room Air Room Air 09/21/24 18:30 Temperature Temperature Source Pulse Rate 96 H Pulse Rate [Left Radial] Respiratory Rate Blood Pressure 111/65 Blood Pressure [Right Arm] Blood Pressure Mean 78 Blood Pressure Mean [Right Arm] 02 Sat by Pulse Oximetry 97 Oxygen Delivery Method Room Air Lab Data Lab Results 09/21/24 17:53: WBC 16.4 H, RBC 5.67, Hgb 15.9, Hct 52.2 H, MCV 92.1, MCH 28.0, MCHC 30.5 L, RDW 13.7, Plt Count 125 L, MPV 11.3 H, Neut % (Auto) 82.4 H, Lymph % (Auto) 7.0 L, Becker % (Auto) 9.5 H, Eos % (Auto) 0.1, Baso % (Auto) 0.4, Neut # (Auto) 13.5 H, Lymph # (Auto) 1.2, Becker # (Auto) 1.6 H, Eos # (Auto) 0.0, Baso # (Auto) 0.1, Total Counted 100, Neutrophils % (Manual) 86 H, Lymphocytes % (Manual) 8 L, Monocytes % (Manual) 6, Platelet Estimate Normal, RBC Morphology Normal, PT Cancelled, INR Cancelled, Sodium 146 H, Potassium 4.8, Chloride 109 H , Carbon Dioxide 18 L, Anion Gap 23.8 H, BUN 55 H, Creatinine 2.70 H, Estimated Creat Clear 42, Estimated GFR 25 L, Est GFR ( Amer) 30 L, Glucose 1193 H* , Hemoglobin A1c 13.5 H, Calcium 10.9 H, Phosphorus 5.4 H, Magnesium 3.1 H, Total Bilirubin 0.7, AST 34, ALT 33, Alkaline Phosphatase 138 H, Troponin I 0.07 H, NT-Pro-B Natriuret Pep 5640 H, Total Protein 6.5, Albumin 3.9, Globulin 2.6, Albumin/Globulin Ratio 1.5, TSH 1.41, Thyroxine (T4) 8.3, Salicylates < 1.0 L, A cetaminophen < 10 L, Plasma/Serum Alcohol < 10, Acetone Level Small, HCV Ab HARITHA w/Rflx PCR Qn Negative, HIV Ag/Ab Combo Qual Negative 09/21/24 17:56: VBG pH 7.36, VBG pCO2 29.3 L, VBG pO2 89.8 H, VBG HCO3 16.3 L, V BG Total CO2 17.2 L, VBG O2 Saturation 96.5 H, VBG Base Excess -9.2 L, VBG Lactic Acid 2.7 H 09/21/24 17:53 09/21/24 17:53 Orders (Tests/Meds): ED MEDICATIONS Generic Name Dose Route Start Last Admin Trade Name Freq PRN Reason Stop Dose Admin Sodium Chloride 1,000 mls @ 150 mls/hr 09/21/24 21:00 Sod Chlor 0.9% 1000ml Bag IV 10/21/24 20:59 .Q6H40M FRANCHESKA Sodium Chloride 2,000 mls @ 999 mls/hr 09/21/24 19:00 09/21/24 19:16 Sod Chlor 0.9% 1000ml Bag IV 10/21/24 18:59 999 mls/hr .Q2H1M FRANCHESKA Administration Insulin Human Regular 100 unit 101 mls @ 5.05 mls/hr 09/21/24 19:00 09/21/24 19:11 / Sodium Chloride IV 10/21/24 18:59 5 unit/hr .Q20H FRANCHESKA 5.05 mls/hr Administration Protocol 5 UNIT/HR Sodium Chloride 10 ml 09/21/24 19:04 09/21/24 19:06 Sodium Chloride 0.9% 10ml Syr (Rad Only) IV 10/21/24 19:03 10 ml NEEDED PRN Administration Maintain IV Site Discontinued Medications Generic Name Dose Route Start Last Admin Trade Name Freq PRN Reason Stop Dose Admin Lactated Ringer's 1,000 mls @ 999 mls/hr 09/21/24 17:04 09/21/24 17:37 Lactated Ringer's 1000 Ml Bag IV 09/21/24 18:04 999 mls/hr .Q1H1M ONE Administration Multivitamins 10 ml/ Thiamine 1,015 mls @ 500 mls/hr 09/21/24 17:30 09/21/24 17:37 HCl 100 mg/ Magnesium Sulfate IV 09/21/24 19:31 500 mls/hr 2 gm/ Lactated Ringer's .Q2H2M ONE Administration Ampicillin Sodium/Sulbactam 100 mls @ 200 mls/hr 09/21/24 19:02 Sodium 3 gm/ Sodium Chloride IV 09/21/24 19:03 ONCE ONE Iopamidol 80 ml 09/21/24 19:04 09/21/24 19:07 Iopamidol-370 (76%);100ml Bottle IV 09/21/24 19:05 80 ml ONCE ONE Administration Sodium Chloride 50 ml 09/21/24 19:04 09/21/24 19:06 0.9 % Sodium Chloride 50 Ml Vial IV 09/21/24 19:05 50 ml ONCE ONE Administration ORDERS Category Date Time Status CT angio abdomen pelvis Stat Cat Scan 09/21/24 18:[address] angio chest - dissection Stat Cat Scan 09/21/24 18:30 Completed Consult Computer Installation Engineer [CONS] Routine Cons 09/21/24 17:13 Active POCUS Point of Care (ER Only) Stat Exams 09/21/24 19:22 Taken Acetaminophen Stat Lab 09/21/24 17:53 Completed Acetone, Serum (Rapid) Stat Lab 09/21/24 17:53 Completed Complete Blood Count Auto Diff Stat Lab 09/21/24 17:53 Completed Comprehensive Metabolic Panel Stat Lab 09/21/24 17:53 Completed Drug Screen,Urine Stat Lab 09/21/24 17:04 Ordered Ethanol [Ethyl Alcohol] Stat Lab 09/21/24 17:53 Completed HIV Combo Stat Lab 09/21/24 17:53 Completed Hemoglobin A1C Stat Lab 09/21/24 17:53 Completed Hepatitis C Ab Qual. W/ RFX Stat Lab 09/21/24 17:53 Completed Magnesium Stat Lab 09/21/24 17:53 Completed NT Pro Brain Natriuretic Pep. Stat Lab 09/21/24 17:53 Completed PTT [Activated Partial Thrombo Time] Stat Lab 09/21/24 19:47 Received Phosphorous Stat Lab 09/21/24 17:53 Completed Salicylate Stat Lab 09/21/24 17:53 Completed T4 (Thyroxine) Stat Lab 09/21/24 17:53 Completed TSH [Thyroid Stimulating Hormone] Stat Lab 09/21/24 17:53 Completed Troponin I Q3H Lab 09/21/24 20:06 Received Troponin I Q3H Lab 09/21/24 23:15 Ordered Troponin I Stat Lab 09/21/24 17:53 Completed Urinalysis and Microscopic Stat Lab 09/21/24 17:05 Ordered Blood Culture Stat Micro 09/21/24 18:40 Received Venous Blood Gas Stat RT 09/21/24 17:56 Completed Medical Decision Narrative: In summary patient is a [age, sex] who presents to the emergency department for evaluation of [complaint]. Patient is [hemodynamically stable/unstable] upon arrival, [febrile/afebrile]. [Unremarkable physical exam, nonfocal exam versus focal remarkable exam]. Differential diagnosis includes [DDx]. Initial workup will be conducted with [hematologic labs, imaging, respiratory swab, describe workup]. Initial interventions include [crystalloid bolus, medications, p.o. challenge, etc.] initial workup reviewed by me [hematologic labs are remarkable for... Imaging remarkable for... Urinalysis remarkable for]. Upon repeat evaluation [patient had acceptable resolution of symptoms, had persistent pain for which additional interventions were conducted (describe interventions), tolerated p.o., was ambulatory, etc.]. Given this [patient is appropriate for discharge at this time and will be discharged with a prescription for... The case was discussed with hospital medicine regarding management and they will admit the patient their service for continued evaluation at this time... Etc.] Places where you can increase complexity: I informally interpreted the patient's chest x-ray or CT read and is remarkable for... Documenting what the monitoring specialist shows with rate and rhythm Consideration of test but deferring. Ex: I considered chest x-ray on this patient however given that they have no oxygen requirement and are clear to auscultation all lung saeed will be deferred. Social determinants of health: Given that patient is undomiciled increases complexity. Given that patient has polysubstance abuse compounds all aspects of care <Daniel Ellis MD - Last Filed: 09/21/24 20:22> Medical Records Medical records reviewed: Yes I reviewed the patient's medical records. Yosef Inquiry Pt receiving controlled substance: No Yosef was queried for this patient: No Vital Signs: 09/21/24 16:56 09/21/24 16:57 09/21/24 17:00 Temperature 97.6 F Temperature Source Oral Pulse Rate 102 H 102 H Pulse Rate [Left Radial] 102 H Respiratory Rate 18 18 25 H Blood Pressure 84/56 L 92/47 L Blood Pressure [Right Arm] 84/56 L Blood Pressure Mean Blood Pressure Mean [Right Arm] 65 02 Sat by Pulse Oximetry 98 96 97 Oxygen Delivery Method Room Air Room Air Room Air 09/21/24 17:02 09/21/24 17:30 09/21/24 18:00 Temperature Temperature Source Pulse Rate 101 H 101 H 97 H Pulse Rate [Left Radial] Respiratory Rate 17 20 34 H Blood Pressure 89/54 L 92/58 L 109/56 L Blood Pressure [Right Arm] Blood Pressure Mean Blood Pressure Mean [Right Arm] 02 Sat by Pulse Oximetry 98 97 96 Oxygen Delivery Method Room Air Room Air Room Air 09/21/24 18:30 Temperature Temperature Source Pulse Rate 96 H Pulse Rate [Left Radial] Respiratory Rate Blood Pressure 111/65 Blood Pressure [Right Arm] Blood Pressure Mean 78 Blood Pressure Mean [Right Arm] 02 Sat by Pulse Oximetry 97 Oxygen Delivery Method Room Air Lab Data Lab Results 09/21/24 17:53: WBC 16.4 H, RBC 5.67, Hgb 15.9, Hct 52.2 H, MCV 92.1, MCH 28.0, MCHC 30.5 L, RDW 13.7, Plt Count 125 L, MPV 11.3 H, Neut % (Auto) 82.4 H, Lymph % (Auto) 7.0 L, Becker % (Auto) 9.5 H, Eos % (Auto) 0.1, Baso % (Auto) 0.4, Neut # (Auto) 13.5 H, Lymph # (Auto) 1.2, Becker # (Auto) 1.6 H, Eos # (Auto) 0.0, Baso # (Auto) 0.1, Total Counted 100, Neutrophils % (Manual) 86 H, Lymphocytes % (Manual) 8 L, Monocytes % (Manual) 6, Platelet Estimate Normal, RBC Morphology Normal, PT Cancelled, INR Cancelled, Sodium 146 H, Potassium 4.8, Chloride 109 H , Carbon Dioxide 18 L, Anion Gap 23.8 H, BUN 55 H, Creatinine 2.70 H, Estimated Creat Clear 42, Estimated GFR 25 L, Est GFR ( Amer) 30 L, Glucose 1193 H* , Hemoglobin A1c 13.5 H, Calcium 10.9 H, Phosphorus 5.4 H, Magnesium 3.1 H, Total Bilirubin 0.7, AST 34, ALT 33, Alkaline Phosphatase 138 H, Troponin I 0.07 H, NT-Pro-B Natriuret Pep 5640 H, Total Protein 6.5, Albumin 3.9, Globulin 2.6, Albumin/Globulin Ratio 1.5, TSH 1.41, Thyroxine (T4) 8.3, Salicylates < 1.0 L, A cetaminophen < 10 L, Plasma/Serum Alcohol < 10, Acetone Level Small, HCV Ab HARITHA w/Rflx PCR Qn Negative, HIV Ag/Ab Combo Qual Negative 09/21/24 17:56: VBG pH 7.36, VBG pCO2 29.3 L, VBG pO2 89.8 H, VBG HCO3 16.3 L, V BG Total CO2 17.2 L, VBG O2 Saturation 96.5 H, VBG Base Excess -9.2 L, VBG Lactic Acid 2.7 H Orders (Tests/Meds): ED MEDICATIONS Generic Name Dose Route Start Last Admin Trade Name Freq PRN Reason Stop Dose Admin Sodium Chloride 1,000 mls @ 150 mls/hr 09/21/24 21:00 Sod Chlor 0.9% 1000ml Bag IV 10/21/24 20:59 .Q6H40M FRANCHESKA Sodium Chloride 2,000 mls @ 999 mls/hr 09/21/24 19:00 09/21/24 19:16 Sod Chlor 0.9% 1000ml Bag IV 10/21/24 18:59 999 mls/hr .Q2H1M FRANCHESKA Administration Insulin Human Regular 100 unit 101 mls @ 5.05 mls/hr 09/21/24 19:00 09/21/24 19:11 / Sodium Chloride IV 10/21/24 18:59 5 unit/hr .Q20H FRANCHESKA 5.05 mls/hr Administration Protocol 5 UNIT/HR Sodium Chloride 10 ml 09/21/24 19:04 09/21/24 19:06 Sodium Chloride 0.9% 10ml Syr (Rad Only) IV 10/21/24 19:03 10 ml NEEDED PRN Administration Maintain IV Site Discontinued Medications Generic Name Dose Route Start Last Admin Trade Name Freq PRN Reason Stop Dose Admin Lactated Ringer's 1,000 mls @ 999 mls/hr 09/21/24 17:04 09/21/24 17:37 Lactated Ringer's 1000 Ml Bag IV 09/21/24 18:04 999 mls/hr .Q1H1M ONE Administration Multivitamins 10 ml/ Thiamine 1,015 mls @ 500 mls/hr 09/21/24 17:30 09/21/24 17:37 HCl 100 mg/ Magnesium Sulfate IV 09/21/24 19:31 500 mls/hr 2 gm/ Lactated Ringer's .Q2H2M ONE Administration Ampicillin Sodium/Sulbactam 100 mls @ 200 mls/hr 09/21/24 19:02 Sodium 3 gm/ Sodium Chloride IV 09/21/24 19:03 ONCE ONE Iopamidol 80 ml 09/21/24 19:04 09/21/24 19:07 Iopamidol-370 (76%);100ml Bottle IV 09/21/24 19:05 80 ml ONCE ONE Administration Sodium Chloride 50 ml 09/21/24 19:04 09/21/24 19:06 0.9 % Sodium Chloride 50 Ml Vial IV 09/21/24 19:05 50 ml ONCE ONE Administration ORDERS Category Date Time Status CT angio abdomen pelvis Stat Cat Scan 09/21/24 18:[address] angio chest - dissection Stat Cat Scan 09/21/24 18:30 Completed Consult Computer Installation Engineer [CONS] Routine Cons 09/21/24 17:13 Active POCUS Point of Care (ER Only) Stat Exams 09/21/24 19:22 Taken Acetaminophen Stat Lab 09/21/24 17:53 Completed Acetone, Serum (Rapid) Stat Lab 09/21/24 17:53 Completed Complete Blood Count Auto Diff Stat Lab 09/21/24 17:53 Completed Comprehensive Metabolic Panel Stat Lab 09/21/24 17:53 Completed Drug Screen,Urine Stat Lab 09/21/24 17:04 Ordered Ethanol [Ethyl Alcohol] Stat Lab 09/21/24 17:53 Completed HIV Combo Stat Lab 09/21/24 17:53 Completed Hemoglobin A1C Stat Lab 09/21/24 17:53 Completed Hepatitis C Ab Qual. W/ RFX Stat Lab 09/21/24 17:53 Completed Magnesium Stat Lab 09/21/24 17:53 Completed NT Pro Brain Natriuretic Pep. Stat Lab 09/21/24 17:53 Completed PTT [Activated Partial Thrombo Time] Stat Lab 09/21/24 19:47 Received Phosphorous Stat Lab 09/21/24 17:53 Completed Salicylate Stat Lab 09/21/24 17:53 Completed T4 (Thyroxine) Stat Lab 09/21/24 17:53 Completed TSH [Thyroid Stimulating Hormone] Stat Lab 09/21/24 17:53 Completed Troponin I Q3H Lab 09/21/24 20:06 Received Troponin I Q3H Lab 09/21/24 23:15 Ordered Troponin I Stat Lab 09/21/24 17:53 Completed Urinalysis and Microscopic Stat Lab 09/21/24 17:05 Ordered Blood Culture Stat Micro 09/21/24 18:40 Received Venous Blood Gas Stat RT 09/21/24 17:56 Completed Medical Decision Narrative: This is a 54-year-old male history of hypertension, hyperlipidemia, cardiomyopathy with pacemaker in place, right lower extremity AKA presenting with generalized weakness. Patient states that he was actually brought in by EMS because he drank 2 tall boys just prior to arrival. Fell asleep. His roommates were trying to wake him up and stated that they could not wake him up, so they called EMS. On EMS arrival, they state that they woke him without issue, he was alert and oriented and had no complaints. Brought him to the emergency department because he seemed sluggish and his blood pressure was low. On arrival, patient has no complaints. No chest pain, shortness of breath, nausea, vomiting, abdominal pain. States that he has been very thirsty and his mouth is dry. History was obtained via conversation with patient, EMS. On arrival, patient hemodynamically stable, alert, oriented x4, appropriate, GCS 15, moving all extremities spontaneously, pupils equal and reactive to light. Full physical exam performed and significant for chronically ill-appearing male no acute distress. He is tachycardic and mildly hypotensive. Afebrile. Lungs are clear. Abdomen soft, nontender, nondistended. Answering questions appropriately. He does have a right lower extremity AKA, no evidence of trauma about his head, neck, chest, abdomen, back or flanks. Differential includes ACS, SC, sepsis, UTI, dehydration, metabolic abnormality, endocrinologic abnormality, intoxication, withdrawal, among others. Patient placed on continuous cardiac monitoring and continuous pulse ox with initial blood pressure 84/56, heart rate 102, saturation 97% on room air. Independent interpretation of EKG shows sinus tachycardia with incomplete right bundle branch block, right axis deviation. Right ventricular hypertrophy, Q waves in anterolateral and inferior leads consistent with remote ischemia. No acute ischemic change. PA 142, QRS 94, QTc 407. Patient was given 1 L of LR, 1 L rally pack for symptomatic management and correction of underlying abnormalities. Patient was also given p.o. fluids as well as meal tray as he states that he has had food scarcity at home. Workup independently interpreted and significant for white count 16.4 with neutrophilia. Patient's VBG with metabolic acidosis with respiratory compensation. Normal pH with lactate 2.7. Hypernatremic with ANSHU creatinine 2.7 and BUN 55 unknown baseline. Patient has an anion gap of nearly 24. Glucose 1200. A1c 13.5. Elevated mag and Phos. Patient's troponin 0.07 and BNP 5640. Tox labs negative. Patient started on continuous IV fluids, insulin drip. On independent interpretation of imaging, patient has no acute intrathoracic or intra-abdominal abnormality. See radiology read for full review of final results. Sepsis antibiotics were considered given labs, tachycardia, hypotension, but I feel this is likely all clearance representative of DKA and given negative workup otherwise including imaging and asymptomatic patient, antibiotics not deemed necessary at this time. Bedside [id number] ultrasound was performed. Patient does have regional wall motion abnormality of the left ventricle with evidence of systolic dysfunction EPSS 17 mm estimated ejection fraction right around 40. No evidence of right heart strain or pericardial effusion. Hospital medicine was contacted and case was discussed at length for critically ill patient in acute renal failure, DKA, and CHF exacerbation. Graciously accepted for admission. Because patient high risk for clinical decompensation, deemed appropriate for inpatient admission. Results were relayed to patient who voiced understanding and patient was agreeable to inpatient admission and management. Patient was admitted to the hospital for further definitive management. Tile Erector disclaimer Much of this encounter note is an electronic phone engineer spoken language to printed text. Electronic phone engineer of the spoken language may permit errors. Although I have reviewed the note, some errors may still exist. Critical Care <Daniel Ellis MD - Last Filed: 09/21/24 20:22> Critical Care Time Critical Care Time: Yes (metabolic, cardiac, ) Attestation: On 09/21/24, the high probability of a clinically significant, sudden or life threatening deterioration of the following system(s) required my full and direct attention, intervention and personal management. The time I documented below is in addition to time spent performing reported procedures but includes the following listed in this critical care notation. Total Time Total Critical Care Time: 75
[2024-09-21] MEDS: LACTATED RINGERS 1000ML 1,000 ML 999 ML IV (17:37)
[2024-09-21] MEDS: MVI, ADULT NO.1 WITH VIT K 10 ML, THIAMINE HCL 100 MG, MAGNESIUM SULFATE 2 GM in LACTAT... 500 ML IV (17:37)
--- NOTE | 2024-09-21 17:38 | PC.NURSE ---
Doniser aracelis requested for patient.
[2024-09-21 18:03] LABS: VBG Base Excess -9.2 mmol/L (-2.4-2.3); VBG HCO3 16.3 mmol/L (23-30); VBG Oxygen Saturation 96.5 % (50-70); VBG PCO2 29.3 mmol/L (35-51); VBG PH 7.36 mmol/L (7.31-7.41); VBG PO2 89.8 mmol/L (28-40); VBG Total CO2 17.2 mmol/L (23-27)
[2024-09-21 18:05] LABS: Lactate Venous 2.7 mmol/L (0.4-2.0)
[2024-09-21 18:12] LABS: Albumin Level 3.9 g/dl (3.5-5.0); Chloride 109 mmol/L (98-107); Potassium 4.8 mmoL/L (3.5-5.1); Sodium 146 mmol/L (136-145)
[2024-09-21 18:15] LABS: Alanine Aminotransferase 33 U/L (12-78); Albumin/Globulin Ratio 1.5 (1.1-1.8); Alkaline Phosphatase 138 U/L (38-126); Anion Gap 23.8 mEq/L (5-15); Aspartate Amino Transferase 34 U/L (17-59); Basophils # 0.1 K/mm3 (0-0.2); Basophils % 0.4 % (0.1-2.0); Bilirubin,Total 0.7 mg/dl (0.2-1.3); Blood Urea Nitrogen 55 mg/dl (9-20); Calcium 10.9 mg/dl (8.4-10.2); Carbon Dioxide 18 mmol/L (22.0-30.0); Creatinine Clearance Estimated 42 mL/min (50-200); Eosinophils % 0.1 % (0.1-12.0); Estimated Glomerular Filt Rate 25 ml/min (>60); GFR (African American) 30 ML/MIN (>60); Globulin 2.6 g/dL (1.3-3.2); Hematocrit 52.2 % (42.0-52.0); Hemoglobin 15.9 g/dL (14.1-18.0); Lymphocytes # 1.2 K/mm3 (0.7-4.5); Magnesium 3.1 mg/dl (1.6-2.3); Mean Corpuscular HGB Conc 30.5 g/dL (31.8-35.4); Mean Corpuscular Volume 92.1 fl (80-94); Mean Platelet Volume 11.3 fl (7.4-10.4); Monocytes # 1.6 K/mm3 (0.1-1.0); Monocytes % 9.5 % (1.7-9.3); Neutrophils # 13.5 K/mm3 (1.8-7.8); Neutrophils % 82.4 % (37.0-80.0); Platelet Count 125 K/mm3 (142-424); Red Blood Count 5.67 M/mm3 (4.60-6.20); Red Cell Distribution Width 13.7 % (11.5-17.5); Total Protein,Serum 6.5 g/dl (6.3-8.2); White Blood Count 16.4 K/mm3 (4.8-10.8)
[2024-09-21 18:17] LABS: MANUAL DIFFERENTIAL MANUAL DIFFERENTIAL (MANUAL DIFF)
[2024-09-21 18:26] LABS: NT Pro Brain Natriuretic Pep. 5640 pg/mL (0-125)
--- NOTE | 2024-09-21 18:30 | CT_ITS ---
PROCEDURE INFORMATION: Exam: CTA Chest With Contrast Exam date and time: 09/21/2024 7:00 PM Age: 54 years old Clinical indication: Other: Meth use, tachycardia and hypotension TECHNIQUE: Imaging protocol: Computed tomographic angiography of the chest with contrast. Exam focused on the arteries. 3D rendering (Not supervised by radiologist): MIP and/or 3D reconstructed images were created by the technologist. Radiation optimization: All CT scans at this facility use at least one of these dose optimization techniques: automated exposure control; mA and/or kV adjustment per patient size (includes targeted exams where dose is matched to clinical indication); or iterative reconstruction. Contrast material: ISO 370; Contrast volume: 80 ml; Contrast route: INTRAVENOUS (IV); COMPARISON: CR XR CHEST 2V 06/06/2021 15:31 FINDINGS: Tubes, catheters and devices: Pacemaker leads are noted. Pulmonary arteries: While this is not a dedicated CT PE protocol, there are no pulmonary emboli identified. Aorta: No aortic dissection. The aorta demonstrates moderate atherosclerotic disease. Lungs: Azygos fissure. There is a 6 mm right middle lobe nodule image 63 series 5. Mild scarring and atelectasis in the lower lungs. Pleural spaces: Small left pleural effusion. Heart: Cardiomegaly. Coronary arteries: Coronary artery calcifications. Left circumflex arterial stent. Lymph nodes: Unremarkable. No enlarged lymph nodes. Bones/joints: Unremarkable. No acute fracture. Soft tissues: Unremarkable. Other findings: Stigmata of old granulomatous disease. Please see separate report for abdomen/pelvis. IMPRESSION: 1. No aortic dissection. 2. While this is not a dedicated CT PE protocol, there are no pulmonary emboli identified. 3. There is a 6 mm right middle lobe nodule image 63 series 5. For patients at low risk (minimal or absent history of smoking and of other known risk factors), recommend CT Chest at 6-12 months, then consider CT Chest at 18-24 months. For patients at high risk (history of smoking or of other known risk factors), recommend CT Chest at 6-12 months, then [address] Chest at 18-24 months. (Reference: Mona) 4. Small left pleural effusion. REFERENCES: Mona Miguel, et al. Guidelines for Management of Incidental Pulmonary Nodules Detected on CT Images: From the Fleischner Society 2017. Radiology. 2017;284(1):228-243.
--- NOTE | 2024-09-21 18:30 | CT_ITS ---
PROCEDURE INFORMATION: Exam: CTA Abdomen and Pelvis With Contrast Exam date and time: 09/21/2024 7:00 PM Age: 54 years old Clinical indication: Other: Meth use, tachycardia and hypotension TECHNIQUE: Imaging protocol: Computed tomographic angiography of the abdomen and pelvis with contrast. Exam focused on the arteries. 3D rendering (Not supervised by radiologist): MIP and/or 3D reconstructed images were created by the technologist. Radiation optimization: All CT scans at this facility use at least one of these dose optimization techniques: automated exposure control; mA and/or kV adjustment per patient size (includes targeted exams where dose is matched to clinical indication); or iterative reconstruction. Contrast material: ISO 370; Contrast volume: 80 ml; Contrast route: INTRAVENOUS (IV); COMPARISON: CR XR HIP LT 2-3V W/PELVIS 05/09/2019 11:18 FINDINGS: Aorta: No aortic aneurysm. No aortic dissection. Celiac trunk and mesenteric arteries: Moderate stenosis of origin of the celiac trunk. Renal arteries: No occlusion or significant stenosis. Right iliac arteries: The right common iliac artery is occluded at its origin with reconstitution at the bifurcation likely related to retrograde flow. The right external iliac, common femoral, and profunda arteries are narrow in diameter suggesting slow motility. There is minimal opacification of the proximal right superficial femoral artery suggesting slow flow with possible significant stenosis. Left iliac arteries: No occlusion or significant stenosis. Other arteries: The arteries demonstrate severe atherosclerotic disease. Liver: No mass. Gallbladder and biliary ducts: Unremarkable. No calcified stones. No ductal dilation. Pancreas: Unremarkable. No mass. No ductal dilation. Spleen: Unremarkable. No splenomegaly. Adrenal glands: Unremarkable. No mass. Kidneys and ureters: Low attenuation renal lesions measuring up to 2.5 cm in diameter are incompletely characterized, but are likely cysts. No followup imaging is warranted. Stomach and bowel: Nonspecific small bowel wall thickening. Crtv-fz-vlyqniay small bowel feces. This suggests slow motility. Appendix: Unremarkable appendix. Intraperitoneal space: Unremarkable. No free air. No significant fluid collection. Lymph nodes: Unremarkable. No enlarged lymph nodes. Urinary bladder: Unremarkable. No mass. Reproductive: Unremarkable as visualized. Bones/joints: No acute fracture. Soft tissues: Right lower extremity muscles are atrophied. Other findings: Stigmata of old granulomatous disease. Please see separate report for CT chest. IMPRESSION: 1. 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 The blood flow to the right lower extremity is significantly decreased as a result. See details above. 2. Nonspecific small bowel wall thickening. Please exclude enteritis.
[2024-09-21 18:33] LABS: T4 (Thyroxine) 8.3 ug/dl (5.53-11.0)
[2024-09-21 18:34] LABS: Acetaminophen < 10 ug/ml (10-30); Ethyl Alcohol < 10 mg/dl (0-10); Salicylate < 1.0 mg/dL (2.0-20.0)
[2024-09-21 18:46] LABS: Thyroid Stimulating Hormone 1.41 uIU/mL (0.465-4.68)
[2024-09-21 18:56] LABS: Glucose 1193 mg/dl (74-100)
[2024-09-21 18:58] LABS: HIV Combo NEGATIVE (Negative); Troponin I 0.07 ng/ml (0.00-0.034)
[2024-09-21 19:00] LABS: Lymphocytes % 8 % (10-50); Monocytes % 6 % (2-9); Neutrophils % 86 % (42-76); Platelet Estimate Normal; RBC Morphology Normal; Total Cells Counted 100
[2024-09-21] MEDS: SODIUM CHLORIDE 0.9% 10ML SYR (RAD ONLY) 10 ML IV (19:06)
[2024-09-21] MEDS: 0.9 % SODIUM CHLORIDE 50 ML VIAL IV (19:06)
[2024-09-21 19:07] LABS: Hepatitis C Ab Qual. W/ RFX NEGATIVE (Negative)
[2024-09-21] MEDS: IOPAMIDOL-370 (76%);100ML BOTTLE 80 ML IV (19:07)
--- NOTE | 2024-09-21 19:07 | HMH.ITSTN ---
completion/results were overrode for the use of contrast media by the Physician on a risk vs. benefit situation with this patient.
[2024-09-21] MEDS: INSULIN REGULAR, HUMAN 100 UNIT in 0.9 % SODIUM CHLORIDE 100 ML 5.05 UNIT IV (19:11)
[2024-09-21] MEDS: 0.9 % SODIUM CHLORIDE 1000ML 2,000 ML 999 ML IV (19:16)
[2024-09-21 19:26] LABS: Phosphorous 5.4 mg/dl (2.5-4.5)
[2024-09-21 19:27] LABS: Acetone, Serum (Rapid) Small (None Detect)
--- NOTE | 2024-09-21 19:27 | PEERSUPPORT ---
Peer Support Note Patient Information Patient Information: DOS: 09/21/2024 ? Reason: ETOH Stim UD ? Drug(s) of Choice: Alcohol, Meth ? Last Use:2 beers this morning ? Previous MAT/MOUD: None ? Current MAT/MOUD: None ? Desire for MAT/MOUD: Interested in learning of options once health is stable ? Previous Treatment: None mentioned ? Longest Length of Sobriety: 4 years total 2 years while incarcerated 2 years while on parole ? Support System: Brother; pt says they do have a relationship not further details. ? Legal Issues: None currently ? Potential Barriers: People in life who actively use periodically providing access Untreated pain Untreated mental health;? Lack of support for recovery ? Harm reduction: Connection to Bridge peer support ;Build rapport Educate on health conditions and CARLA Healthy communication with compassion ? Motivation for Change: Pt stated he knew he was in bad health, but was self-medicating the only way he knew or found relief. Would buy a 18 pack of Perez beer at the beginning of each month then space them out until he could buy more sometimes until the next month. He stated the beer he would use to get him up and able to move without having his prosthetic, then he would use meth in small amounts to give him strength to go. He admitted this is not helping him and not healthy. He is interested in getting help for his underlying issues being grief, trauma, and alcohol use and meth use in the right way. ? Plan of Action: Admitted to ICU Ps will follow up with pt. ?
[2024-09-21 19:44] LABS: Hemoglobin A1C 13.5 % (4.0-6.0)
--- NOTE | 2024-09-21 20:11 | PC.NURSE ---
attempted to call report, nurse unavailable at this time. will call back
[2024-09-21 20:17] LABS: INR 1.07 (0.9-1.1); Prothrombin Time 11.9 seconds (10.1-12.5)
[2024-09-21 20:36] LABS: Activated Partial Thrombo Time 18.8 seconds (22.8-30.6)
--- NOTE | 2024-09-21 20:43 | P.HP_ITS ---
History of Present Illness *Admission Date: 09/21/24 *Reason for visit:: Generalized weakness *History of present illness: The patient is a 54-year-old male with a past medical history of hypertension, hyperlipidemia, cardiomyopathy with pacemaker placement, and right lower extremity above-knee amputation who presents to the Emergency Department with generalized weakness. According to the patient, he consumed two ?tall boy? beers prior to arrival and subsequently fell asleep. His roommates were unable to wake him and called EMS. Upon EMS evaluation, he was easily arousable and fully oriented, but was found to have low blood pressure and appeared ?sluggish,? prompting transport to the ED. In the ED, the patient denies chest pain, shortness of breath, nausea, vomiting, or abdominal pain. He reports feeling very thirsty and notes a dry mouth over the past several days. He denies recent fevers or infectious symptoms. He does endorse limited food intake at home due to scarcity. On arrival, he was awake, alert, and oriented ?4, with mild hypotension (blood pressure 84/56) and tachycardia (heart rate 102). He is afebrile. Physical exam is notable for a chronically ill-appearing male with a right lower extremity above-knee amputation and no acute distress. No external trauma or focal neurological deficits are identified. He has no chest wall tenderness or abdominal tenderness on exam. Given his presentation and history, initial differential diagnoses included acute coronary syndrome/myocardial infarction, sepsis, urinary tract infection, dehydration, metabolic or endocrinologic abnormality, intoxication, or withdrawal. However, labs were significant for markedly elevated glucose (>1000), metabolic acidosis, elevated anion gap, and acute kidney injury, raising concern for diabetic ketoacidosis (DKA). Additional testing showed WBC 16.4 (with neutrophilia), lactate of 2.7, creatinine 2.7, BUN 55, and an A1c of 13.5. Troponin was slightly elevated at 0.07, and BNP was 5640. Imaging did not reveal any acute intra-abdominal or intrathoracic pathology. He was started on an insulin drip and continuous IV fluids (LR, ?rally pack?) for correction of hyperglycemia, acidosis, and volume depletion. He was also provided oral fluids and a meal tray given limited food access at home. Although he met some criteria that might raise concern for sepsis (tachycardia, hypotension, elevated WBC), his overall clinical picture and workup suggested that DKA was the primary coach tour driver of his presentation, and antibiotics were not started. A bedside cardiac ultrasound demonstrated a regional wall motion abnormality posterolaterally and an estimated ejection fraction of about 40% with no pericardial effusion or right heart strain. Pacer wires were noted in place. After discussion with hospital medicine regarding his DKA, ANSHU, and concern for possible CHF exacerbation, he was admitted for inpatient management. The patient understands the need for admission and agrees with the plan. [facility] Disclaimer: The information contained in this section may have been updated after the patient was seen, as this information can be updated by other users. Medical History Sinus tachycardia CAD (coronary artery disease) Right above-knee amputee Social History Smoking Status: Current every day smoker tobacco type: cigarettes packs per day: 1 alcohol intake: current alcohol intake frequency: a few times a month substance use type: denies use current occupational status: disabled Travel in the last 8 weeks: Inside the [place] household members: significant other housing: house caffeine: Yes Have you lived/traveled outside [place] in past 30 days?: No Contact w/someone who lives/traveled outside [place] past 30 days?: No Exposure to someone with infectious disease in past 14 days?: No Do you have a fever (greater than 100.4 F or 38 C)?: No Have you tested positive for COVID-19: No Exposed to someone with COVID-19 in past 14 days?: No Do you have a sore throat?: No Do you have a cough?: No Do you have any weakness?: No Do you have any diarrhea?: No Are you experiencing any unusual bleeding?: No Do you have any muscle aches/pain?: No Do you have any abdominal pain?: No Are you experiencing loss of taste or smell?: No Other Medical History Have you received the Flu Vaccine for this season: No Have you received the Pneumonia Vaccine: No Review of Systems Review of Systems Review of systems (narrative): 14 point review of systems negative except as listed in HPI Meds Home Medications and Allergies Home Medications ?Medication ?Instructions ?Recorded ?Confirmed ?Type atorvastatin 40 mg tablet 40 mg PO HS #90 tabs 10/23/22 09/22/24 Rx lisinopril 20 mg tablet 20 mg PO DAILY #90 tabs 10/23/22 09/22/24 Rx New Prescriptions to Start Prescriptions: Allergies Allergy/AdvReac Type Severity Reaction Status Date / Time ticagrelor (From Brilinta) Allergy Mild Verified 06/06/21 10:14 butorphanol (From STADOL) Allergy Unknown Verified 06/06/21 10:14 Exam Data for Last 24 hours Vital signs and Labs for Last 24 Hours: Temp Pulse Resp BP Pulse Ox O2 Del Method 97.6 F 96 H 34 H 111/65 97 Room Air 09/21/24 16:57 09/21/24 18:30 09/21/24 18:00 09/21/24 18:30 09/21/24 18:30 09/21/24 18:30 Laboratory Results - last 24 hr 09/21/24 17:53: WBC 16.4 H, RBC 5.67, Hgb 15.9, Hct 52.2 H, MCV 92.1, MCH 28.0, MCHC 30.5 L, RDW 13.7, Plt Count 125 L, MPV 11.3 H, Neut % (Auto) 82.4 H, Lymph % (Auto) 7.0 L, Tillman % (Auto) 9.5 H, Eos % (Auto) 0.1, Baso % (Auto) 0.4, Neut # (Auto) 13.5 H, Lymph # (Auto) 1.2, Tillman # (Auto) 1.6 H, Eos # (Auto) 0.0, Baso # (Auto) 0.1, Total Counted 100, Neutrophils % (Manual) 86 H, Lymphocytes % (Manual) 8 L, Monocytes % (Manual) 6, Platelet Estimate Normal, RBC Morphology Normal, PT Cancelled, INR Cancelled, Sodium 146 H, Potassium 4.8, Chloride 109 H , Carbon Dioxide 18 L, Anion Gap 23.8 H, BUN 55 H, Creatinine 2.70 H, Estimated Creat Clear 42, Estimated GFR 25 L, Est GFR ( Amer) 30 L, Glucose 1193 H* , Hemoglobin A1c 13.5 H, Calcium 10.9 H, Phosphorus 5.4 H, Magnesium 3.1 H, Total Bilirubin 0.7, AST 34, ALT 33, Alkaline Phosphatase 138 H, Troponin I 0.07 H, NT-Pro-B Natriuret Pep 5640 H, Total Protein 6.5, Albumin 3.9, Globulin 2.6, Albumin/Globulin Ratio 1.5, TSH 1.41, Thyroxine (T4) 8.3, Salicylates < 1.0 L, Acetaminophen < 10 L, Plasma/Serum Alcohol < 10, Acetone Level Small, HCV Ab HARITHA w/Rflx PCR Qn Negative, HIV Ag/Ab Combo Qual Negative 09/21/24 17:56: VBG pH 7.36, VBG pCO2 29.3 L, VBG pO2 89.8 H, VBG HCO3 16.3 L, VBG Total CO2 17.2 L, VBG O2 Saturation 96.5 H, VBG Base Excess -9.2 L, VBG Lactic Acid 2.7 H 09/21/24 19:47: PT 11.9, INR 1.07, APTT 18.8 L I & O for Last 24 hours: Intake & Output 09/18/24 09/19/24 09/20/24 09/21/24 23:59 23:59 23:59 23:59 Weight 95.254 kg Constitutional Constitutional: no acute distress *Routine HEENT Exam Head: Present normocephalic Eye: Present EOMI and PERRL ENT: Present mucous membranes moist *Routine Neck Exam Neck: Present supple; Absent lymphadenopathy *Routine Respiratory Exam Respiratory: Present CTA bilaterally *Routine Cardiovascular Exam Cardiovascular: Present RRR *Routine Abdominal Exam Abdominal: Present soft and normoactive bowel sounds; Absent tenderness *Routine Rectal Exam Rectal:: deferred *Routine Genitalia Exam Genitalia:: deferred *Routine Extremities Exam Extremities: Absent cyanosis, clubbing or edema *Routine Skin Exam Skin: Present warm; Absent rash *Routine Neurological Exam Neurological: Present alert and oriented X3 Detailed Lower Extremity Exam Comments: Amputation right AKA Assessment and Plan *Assessment and plan (1) Diabetes mellitus, new onset: Status: Acute Category: Medical Code(s): E11.9 - Type 2 diabetes mellitus without complications (2) DKA (diabetic ketoacidosis): Status: Acute Category: Medical Code(s): E11.10 - Type 2 diabetes mellitus with ketoacidosis without coma (3) CHF exacerbation: Status: Acute Category: Medical Code(s): I50.9 - Heart failure, unspecified (4) Stimulant use disorder: Status: Acute Category: Medical Code(s): F15.90 - Other stimulant use, unspecified, uncomplicated (5) Systolic congestive heart failure: Status: Acute Qualifiers: Heart failure chronicity: unspecified Qualified Code(s): I50.20 - Unspecified systolic (congestive) heart failure Category: Medical Code(s): I50.20 - Unspecified systolic (congestive) heart failure (6) Ischemic cardiomyopathy: Status: Acute Category: Medical Code(s): I25.5 - Ischemic cardiomyopathy (7) Sinus tachycardia: Status: Acute Category: Medical Code(s): R00.0 - Tachycardia, unspecified Plan Medical Decision Making This 54-year-old male presents with DKA in the setting of markedly elevated glucose (~1200 mg/dL), an anion gap of ~24, and metabolic acidosis. He also has acute kidney injury (likely from volume depletion) and a history of cardiomyopathy/pacemaker with an ejection fraction of ~40%. Troponin levels have trended slightly downward from 0.07 to 0.05, and proBNP remains elevated at 5640, consistent with underlying cardiac dysfunction rather than an acute ischemic event. Notably, there is a history of methamphetamine use, which can exacerbate cardiomyopathy and complicate his clinical course. The current plan involves carefully balanced IV fluids (to address both DKA and ANSHU) while monitoring for fluid overload given his heart failure history, continuation of an insulin infusion, and close telemetry. Antibiotics remain on hold in the absence of a clear infectious source, and social work support is engaged for both food insecurity and substance use issues. Diabetic Ketoacidosis (DKA) * Ongoing IV insulin infusion to correct hyperglycemia and close the anion gap. * Frequent glucose and electrolyte checks (K?, Mg??, Phos). * Transition to subcutaneous insulin once anion gap normalizes, patient is stable, and oral intake is adequate. * IV fluid resuscitation balanced against risk of fluid overload. * Acute Kidney Injury (ANSHU) * Creatinine 2.70 mg/dL, BUN 55 mg/dL; likely prerenal but cannot rule out chronic component. * Judicious IV fluids to improve perfusion without exacerbating CHF. * Monitor daily weights, input/output, and repeat renal function tests. * Congestive Heart Failure / Cardiomyopathy * EF ~40% on echo; pacemaker in place; elevated proBNP (5640). * Troponin has decreased slightly (0.07 ? 0.05), suggesting no active ACS. * Telemetry monitoring for arrhythmias or ischemic changes. * Careful fluid management and consideration of diuretics if clinical evidence of overload appears. * Possible cardiology consultation for optimization of heart failure regimen. Troponin Elevation / Ischemic Workup * Mild troponin elevation not rising, no chest pain, no new ECG changes. * Continue monitoring; if clinical picture changes (new pain, rising troponin), evaluate for ACS. Methamphetamine Use * History of methamphetamine use may contribute to cardiomyopathy and complicates fluid management. * Assess for acute intoxication or withdrawal signs; consider toxicology monitoring as indicated. * Coordinate with social work and/or substance abuse resources for counseling and possible rehabilitation services. Electrolyte Abnormalities / Metabolic Acidosis * Lactate of 2.7; anion gap ~24 reflecting DKA. * Manage with insulin, IV fluids, and electrolyte replacement as levels shift with therapy. * Monitor acid-base status with repeat VBGs and anion gap checks. Infectious Considerations * Tachycardia, hypotension, and leukocytosis initially raised concern for sepsis, but no identified source. * Remain vigilant for signs of infection; start antibiotics if new evidence arises. Nutrition and Social Support * Patient reports food scarcity. * Provide dietary consultation and hospital meals. * academic services professional involved for assistance with food resources and substance use counseling. * Arrange outpatient follow-up with primary care and endocrinology for long-term diabetic management. Disposition * Admitted to the hospital for IV insulin, cautious fluid management, close telemetry, and renal monitoring. * Discharge considered once DKA resolves (anion gap closure), renal function stabilizes, and cardiac status is optimized. * GI prophylaxis with IV Pepcid twice daily * DT prophylaxis subcu heparin and SCDs Rounded on patient after nurse practitioner. Personally examined and interviewed patient. Agree with exam findings and care plan as documented.
[2024-09-21 20:49] LABS: Troponin I 0.05 ng/ml (0.00-0.034)
[2024-09-21 20:53] LABS: Glucose,Random 1200 mg/dL (74-100)
[2024-09-21] MEDS: INSULIN HUMAN REGULAR 100 UNITS/ML 10ML VIAL 10 UNIT IVP (21:00)
--- NOTE | 2024-09-21 21:30 | PC.NURSE ---
Pt arrived to ICU unit via stretcher @21:15
[2024-09-21 21:47] LABS: Microscopic, Urine URINE MICROSCOPIC (MICROSCOPIC)
[2024-09-21 21:57] LABS: Appearance,Urine CLEAR (Clear); Bilirubin,Urine Negative (Negative); Blood, Urine TRACE-I (Negative); Color,Urine YELLOW (Yellow); Glucose,Urine (UA) 3+ (Negative); Ketones,Urine Negative (Negative); Leukocyte Esterase,Urine Negative (Negative); Nitrate,Urine Negative (Negative); Protein,Urine Negative (Negative); Specific Gravity, Urine <= 1.005 (1.005-1.030); Urobilinogen,Urine 0.2 EU/dl (0.2)
[2024-09-21 22:01] LABS: Reflex Lactic Add Lactic Reflex
[2024-09-21] MEDS: 0.9 % SODIUM CHLORIDE 1000ML 1,000 ML 150 ML IV (22:03)
[2024-09-21] MEDS: FAMOTIDINE 20MG/2ML VIAL 20 MG IV (22:06)
[2024-09-21 22:12] LABS: Bacteria,Urine 1+ /lpf; Mucus,Urine 1+ /lpf
[2024-09-21 22:54] LABS: Anion Gap 17.3 mEq/L (5-15); Blood Urea Nitrogen 50 mg/dl (9-20); Calcium 9.9 mg/dl (8.4-10.2); Carbon Dioxide 19 mmol/L (22.0-30.0); Chloride 118 mmol/L (98-107); Creatinine Clearance Estimated 41 mL/min (50-200); Estimated Glomerular Filt Rate 31 ml/min (>60); GFR (African American) 38 ML/MIN (>60); Lactic Acid Follow Up (RFLX 1) 3.3 mmol/L (0.7-2.1); Phosphorous 3.1 mg/dl (2.5-4.5); Potassium 3.3 mmoL/L (3.5-5.1)
[2024-09-21 23:00] LABS: Sodium 151 mmol/L (136-145)
--- NOTE | 2024-09-21 23:01 | PC.NURSE ---
critical sodium of 151 received from lab. along with critical glucose of 838. CONY Meraz notified. New orders see OCT.
[2024-09-21 23:02] LABS: Glucose 838 mg/dl (74-100)
[2024-09-21 23:14] LABS: Benzodiazepines Screen,Urine Negative ng/ml (<200)
[2024-09-21 23:15] LABS: Barbiturates Screen,Urine Negative ng/ml (<200)
[2024-09-21 23:17] LABS: Opiate Screen,Urine Negative ng/ml (<300)
[2024-09-21 23:18] LABS: Phencyclidine Screen,Urine Negative ng/ml (<25)
[2024-09-21] MEDS: 0.45% NaCl w/20mEq KCL 1,000 ML 100 ML IV (23:19)
[2024-09-21 23:24] LABS: Cannabinoid Screen,Urine Negative ng/ml (<50)
[2024-09-21 23:35] LABS: Chloride 119 mmol/L (98-107); Potassium 3.1 mmoL/L (3.5-5.1)
[2024-09-21 23:38] LABS: Blood Urea Nitrogen 50 mg/dl (9-20); Creatinine Clearance Estimated 39 mL/min (50-200); Estimated Glomerular Filt Rate 30 ml/min (>60); GFR (African American) 36 ML/MIN (>60)
[2024-09-21 23:39] LABS: Anion Gap 11.1 mEq/L (5-15); Calcium 10.1 mg/dl (8.4-10.2); Carbon Dioxide 24 mmol/L (22.0-30.0)
[2024-09-21 23:44] LABS: Cocaine Screen,Urine Negative ng/ml (<300)
[2024-09-21 23:45] LABS: Methadone Screen,Urine Negative ng/ml (<300)
[2024-09-21 23:53] LABS: Troponin I 0.04 ng/ml (0.00-0.034)
[2024-09-22] VITALS (27 sets, daily range): BP systolic 90–150; BP diastolic 37–90; PULSE 70–109; RESP 12–29; TEMP 36.4–36.7; O2SAT 94–100; BMI 24.9
[2024-09-22 00:15] LABS: Sodium 151 mmol/L (136-145)
[2024-09-22 00:16] LABS: Glucose 755 mg/dl (74-100)
--- NOTE | 2024-09-22 00:16 | PC.NURSE ---
Critical result received from [place] in lab. Patient Na+ 151, glucose 755. NIGHT MONITOR aware. no new orders.
[2024-09-22 00:27] LABS: Reflex Lactic (2 hrs) Add Lactic Reflex
[2024-09-22 00:44] LABS: Chloride 118 mmol/L (98-107)
[2024-09-22 00:45] LABS: Potassium 3.2 mmoL/L (3.5-5.1)
[2024-09-22 00:47] LABS: Blood Urea Nitrogen 50 mg/dl (9-20); Creatinine Clearance Estimated 45 mL/min (50-200); Estimated Glomerular Filt Rate 35 ml/min (>60); GFR (African American) 42 ML/MIN (>60)
[2024-09-22 00:48] LABS: Anion Gap 14.2 mEq/L (5-15); Calcium 10.1 mg/dl (8.4-10.2); Carbon Dioxide 22 mmol/L (22.0-30.0)
[2024-09-22 00:53] LABS: Lactic Acid Follow up (RFLX 2) 2.6 mmol/L (0.7-2.1)
[2024-09-22 01:01] LABS: Glucose 652 mg/dl (74-100); Sodium 151 mmol/L (136-145)
--- NOTE | 2024-09-22 01:16 | PC.NURSE ---
unable to reconcile meds at this time due to patient increased confusion. Will pass on to dayshift for med rec to be completed.
[2024-09-22 01:45] LABS: Chloride 119 mmol/L (98-107)
[2024-09-22 01:46] LABS: Potassium 3.4 mmoL/L (3.5-5.1)
[2024-09-22 01:48] LABS: Blood Urea Nitrogen 48 mg/dl (9-20); Creatinine Clearance Estimated 45 mL/min (50-200); Estimated Glomerular Filt Rate 35 ml/min (>60); GFR (African American) 42 ML/MIN (>60)
[2024-09-22 01:49] LABS: Anion Gap 14.4 mEq/L (5-15); Calcium 9.9 mg/dl (8.4-10.2); Carbon Dioxide 24 mmol/L (22.0-30.0); Magnesium 3.8 mg/dl (1.6-2.3); Phosphorous 2.8 mg/dl (2.5-4.5)
[2024-09-22 01:51] LABS: Glucose 552 mg/dl (74-100); Sodium 154 mmol/L (136-145)
[2024-09-22 02:09] LABS: POC Glucose,Bedside 474 (70-110)
[2024-09-22 03:16] LABS: POC Glucose,Bedside 356 (70-110)
[2024-09-22 04:24] LABS: POC Glucose,Bedside 278 (70-110)
[2024-09-22 05:57] LABS: Basophils # 0.1 K/mm3 (0-0.2); Basophils % 0.5 % (0.1-2.0); Eosinophils # 0.1 K/mm3 (0.0-0.4); Eosinophils % 0.8 % (0.1-12.0); Hematocrit 45.7 % (42.0-52.0); Hemoglobin 14.7 g/dL (14.1-18.0); Lymphocytes # 2.9 K/mm3 (0.7-4.5); Lymphocytes % 17.8 % (10-50); Mean Corpuscular HGB Conc 32.2 g/dL (31.8-35.4); Mean Corpuscular Hemoglobin 27.8 pg (27.0-31.2); Mean Corpuscular Volume 86.6 fl (80-94); Mean Platelet Volume 11.1 fl (7.4-10.4); Monocytes # 1.3 K/mm3 (0.1-1.0); Monocytes % 8.2 % (1.7-9.3); Neutrophils # 11.6 K/mm3 (1.8-7.8); Neutrophils % 72.1 % (37.0-80.0); Platelet Count 143 K/mm3 (142-424); Red Blood Count 5.28 M/mm3 (4.60-6.20); Red Cell Distribution Width 13.5 % (11.5-17.5)
[2024-09-22 05:59] LABS: MANUAL DIFFERENTIAL MANUAL DIFFERENTIAL (MANUAL DIFF)
[2024-09-22 06:11] LABS: Anion Gap 11.6 mEq/L (5-15); Blood Urea Nitrogen 47 mg/dl (9-20); Calcium 9.7 mg/dl (8.4-10.2); Carbon Dioxide 26 mmol/L (22.0-30.0); Chloride 121 mmol/L (98-107); Creatinine Clearance Estimated 47 mL/min (50-200); Estimated Glomerular Filt Rate 37 ml/min (>60); GFR (African American) 45 ML/MIN (>60); Glucose 254 mg/dl (74-100); Magnesium 3.4 mg/dl (1.6-2.3); Phosphorous 4.2 mg/dl (2.5-4.5); Potassium 3.6 mmoL/L (3.5-5.1)
[2024-09-22 06:23] LABS: Sodium 155 mmol/L (136-145)
[2024-09-22 06:37] LABS: POC Glucose,Bedside 212 (70-110)
[2024-09-22 07:33] LABS: Eosinophils % 2 % (0-3); Lymphocytes % 20 % (10-50); Monocytes % 2 % (2-9); Neutrophils % 76 % (42-76); Platelet Estimate Slight Decrease; RBC Morphology Normal; Total Cells Counted 100
[2024-09-22] MEDS: SODIUM CHLORIDE 0.9% 10ML VIAL 8 ML IV ×2 (08:16→20:18)
[2024-09-22] MEDS: FAMOTIDINE 20MG/2ML VIAL 20 MG IV ×2 (08:16→20:18)
--- NOTE | 2024-09-22 08:32 | CA_ITS ---
APPROVED REPORT EXAM: Comprehensive 2D, Doppler, and color-flow Echocardiogram Mannequin Coloring Artist: Cristina Song, RT(R) Ht: 5 ft 10 in Wt: 168lbs BSA: 1.94 BP: 86/50 mmHg Indications: CHF, CAD, CM, Pacemaker, HTN, HLD, DM, smoker, DKA, Rt AKA, EF 45% on echo 02/2021. 2D Dimensions LVOT 2.06 cm (M/F) 1.5-2.5 LVEF (Rossi's) 24.90 % M: 52 - 72 LV Volume 140.70 mL M: 62 - 150 LV Volume Index 72.5 mL/m2 M: 34 - 74 LA Volume 29.60 mL LA Volume Index 15.26 mL/m2 (M/F) 16-34 EF AP4 27.60 % EF AP2 23.1 % EF BP 24.9 % GL Strain -8.4 % M-Mode Dimensions RVDd 1.29 cm (0.9-2.6) LVDd 5.44 cm (3.5-5.7) LVDs 4.69 cm (3.5-5.7) IVSd 0.54 cm (0.6-1.1) PWd 0.54 cm (0.6-1.1) EF (Teich) 29.10% FS 13.80% EDV (Teich) 143.70 mL ESV (Teich) 101.90 mL LV Diastology E Decel Time 169 (160-240 msec) E/A Ratio 1.0 MED E' 5.2 (>= 7 cm/sec) E'/MED E' Ratio 15.44 (<= 14) LAT E' 7.3 (>= 10 cm/sec) E/LAT E' Ratio 11.00 (<= 14) Mitral Valve MV E Max Italo. 80.0 (40-130 cm/s) MV A Velocity 79.0 (40-130 cm/s) E/A Ratio 1.01 MV Decel. Time 169 (160-240 ms) Left Ventricle The left ventricle is normal size. Left ventricular systolic function is severely decreased. There is increased LV wall thickness. There is severe global hypokinesis present. The septum is asynchronous. Grade 2 diastolic dysfunction is present. LVEF is 20-25%. Right Ventricle The right ventricle is normal size. The right ventricular systolic function is normal. There is a device lead in the right ventricle. Atria The left atrium is mildly dilated. The right atrium size is normal. The interatrial septum is not well-visualized. Aortic Valve Aortic valve is mildly thickened. There is no aortic valvular stenosis. Trace aortic regurgitation. Mitral Valve The mitral valve is normal in structure. No evidence of mitral valve stenosis. Mild mitral regurgitation. Tricuspid Valve The tricuspid valve leaflets are thin and pliable. Trace tricuspid regurgitation. There is insufficient TR jet to estimate RVSP. Pulmonic Valve The pulmonary valve is normal in structure. Trace pulmonic regurgitation. Great Vessels The aortic root is not well-visualized. IVC is normal in size and collapses >50% with inspiration. Pericardium There is no pericardial effusion. Other Information Study Quality: Fair Conclusion Severe reduction in LV systolic function (LVEF 20-25%). Grade 2 diastolic dysfunction. Asynchronous septum. Mild LA dilation. Mild MR. Compared to prior study from 03/10/2021, the severity of LVEF reduction is now worse. Electronically signed by : Charisma Reynoso MD 09/22/2024 12:53:09
--- NOTE | 2024-09-22 08:32 | P.PN_ITS ---
Subjective *Date: 09/22/24 *Time: 22:20 Interval history: Anion gap closed this morning, has developed hypernatremia however. Transitioning regimen. Asking for something to eat. Will initiate diet. Stable on room air. Remains critically ill. Denies chest pain or shortness of breath. No nausea or vomiting. Very thirsty overnight. Medical Exam Vital signs and Labs for Last 24 Hours: Vital Signs Temp Pulse Pulse Resp BP BP Pulse Ox 09/22/24 08:00 97.6 F 82 15 117/66 95 09/22/24 07:00 09/22/24 07:00 77 14 112/62 98 09/22/24 06:00 83 16 124/71 95 09/22/24 05:15 88 15 96/44 L 96 09/22/24 05:00 09/22/24 04:00 84 09/22/24 04:00 91 H 13 121/67 98 09/22/24 03:30 91 H 12 97 09/22/24 03:16 106/56 L 09/22/24 03:16 87 18 98 09/22/24 03:15 84 17 97 09/22/24 03:00 09/22/24 03:00 82 25 H 97 09/22/24 03:00 93/37 L 09/22/24 02:45 85 26 H 96 09/22/24 02:30 91 H 19 96 09/22/24 02:15 84 28 H 96 09/22/24 02:04 87 29 H 100 09/22/24 02:04 109/60 L 09/22/24 02:00 94 H 23 109/60 L 96 09/22/24 01:00 70 18 103/67 L 94 L 09/22/24 01:00 09/22/24 00:00 72 09/22/24 00:00 97.9 F 83 20 120/66 97 09/21/24 23:00 09/21/24 23:00 81 18 107/58 L 93 L 09/21/24 22:00 87 35 H 114/63 94 L 09/21/24 21:31 97.8 F 88 16 125/50 L 96 09/21/24 21:02 98.1 F 91 H 32 H 114/63 09/21/24 21:00 09/21/24 20:45 32 H 09/21/24 20:44 90 01/23/25 20:31 32 H 09/21/24 20:31 114/63 09/21/24 20:30 36 H 09/21/24 20:15 13 09/21/24 20:00 20 09/21/24 20:00 105/58 L 09/21/24 19:45 87 30 H 94 L 09/21/24 19:33 88 35 H 96 09/21/24 19:33 104/52 L 09/21/24 19:30 88 22 96 09/21/24 19:15 88 32 H 90 L 09/21/24 19:05 92 H 31 H 93 L 09/21/24 18:45 12 09/21/24 18:30 96 H 111/65 97 09/21/24 18:00 97 H 34 H 109/56 L 96 09/21/24 17:30 101 H 20 92/58 L 97 09/21/24 17:02 101 H 17 89/54 L 98 09/21/24 17:00 102 H 25 H 92/47 L 97 09/21/24 16:57 97.6 F 102 H 18 84/56 L 96 09/21/24 16:56 102 H 18 84/56 L 98 O2 Del Method O2 Flow Rate 09/22/24 08:00 Room Air 09/22/24 07:00 Room Air 09/22/24 07:00 Room Air 09/22/24 06:00 Room Air 09/22/24 05:15 Nasal Cannula 2 09/22/24 05:00 Room Air 09/22/24 04:00 09/22/24 04:00 Room Air 09/22/24 03:30 09/22/24 03:16 09/22/24 03:16 09/22/24 03:15 09/22/24 03:00 Room Air 09/22/24 03:00 09/22/24 03:00 09/22/24 02:45 09/22/24 02:30 09/22/24 02:15 09/22/24 02:04 09/22/24 02:04 09/22/24 02:00 Room Air 09/22/24 01:00 Room Air 09/22/24 01:00 Room Air 09/22/24 00:00 09/22/24 00:00 Room Air 09/21/24 23:00 Room Air 09/21/24 23:00 Room Air 09/21/24 22:00 09/21/24 21:31 Room Air 09/21/24 21:02 Room Air 09/21/24 21:00 Room Air 09/21/24 20:45 09/21/24 20:44 09/21/24 20:31 09/21/24 20:31 09/21/24 20:30 09/21/24 20:15 09/21/24 20:00 09/21/24 20:00 09/21/24 19:45 09/21/24 19:33 09/21/24 19:33 09/21/24 19:30 09/21/24 19:15 09/21/24 19:05 09/21/24 18:45 09/21/24 18:30 Room Air 09/21/24 18:00 Room Air 09/21/24 17:30 Room Air 09/21/24 17:02 Room Air 09/21/24 17:00 Room Air 09/21/24 16:57 Room Air 09/21/24 16:56 Room Air Intake and Output 09/21/24 09/22/24 09/22/24 23:59 07:59 15:59 Intake Total 3255.15 / 3475.15 1908.454 / 1908.454 Output Total 1050 / 1050 500 / 500 Balance 2205.15 / 2425.15 1408.454 / 1408.454 Intake: Intake, Oral Amount 240 / 360 1120 / 1120 Intake, Total IV Amount 3015.15 / 3115.15 788.454 / 788.454 0.45% NaCl w/20mEq KCL 1,000 ml 751 / 751 @ 100 mls/hr IV .Q10H [facility] Rx#: [id number] 0.9 % Sodium Chloride 1000ML 2, 2000 / 2000 000 ml @ 999 mls/hr IV .Q2H1M [facility] Rx#:[id number] Mvi, Adult No.1 with Vit K 10 1000 / 1000 ml Thiamine HCl 100 mg Magnesium Sulfate 2 gm In Lactated Ringers 1000ML 1,000 ml @ 500 mls/hr IV .Q2H2M [facility] Rx#:[id number] Output: Output, Urine Amount 1050 / 1050 500 / 500 Other: Number of Unmeasured Voids 0 1 Weight 76.294 kg 76.294 kg Patient Weight 09/22/24 23:59 Weight 76.294 kg Laboratory Results - last 24 hr 09/21/24 17:53: WBC 16.4 H, RBC 5.67, Hgb 15.9, Hct 52.2 H, MCV 92.1, MCH 28.0, MCHC 30.5 L, RDW 13.7, Plt Count 125 L, MPV 11.3 H, Neut % (Auto) 82.4 H, Lymph % (Auto) 7.0 L, Pacific % (Auto) 9.5 H, Eos % (Auto) 0.1, Baso % (Auto) 0.4, Neut # (Auto) 13.5 H, Lymph # (Auto) 1.2, [place] # (Auto) 1.6 H, Eos # (Auto) 0.0, Baso # (Auto) 0.1, Total Counted 100, Neutrophils % (Manual) 86 H, Lymphocytes % (Manual) 8 L, Monocytes % (Manual) 6, Platelet Estimate Normal, RBC Morphology Normal, PT Cancelled, INR Cancelled, Sodium 146 H, Potassium 4.8, Chloride 109 H , Carbon Dioxide 18 L, Anion Gap 23.8 H, BUN 55 H, Creatinine 2.70 H, Estimated Creat Clear 42, Estimated GFR 25 L, Est GFR ( Amer) 30 L, Glucose 1193 H* , Hemoglobin A1c 13.5 H, Calcium 10.9 H, Phosphorus 5.4 H, Magnesium 3.1 H, Total Bilirubin 0.7, AST 34, ALT 33, Alkaline Phosphatase 138 H, Troponin I 0.07 H, NT-Pro-B Natriuret Pep 5640 H, Total Protein 6.5, Albumin 3.9, Globulin 2.6, Albumin/Globulin Ratio 1.5, TSH 1.41, Thyroxine (T4) 8.3, Salicylates < 1.0 L, Acetaminophen < 10 L, Plasma/Serum Alcohol < 10, Acetone Level Small, HCV Ab HARITHA w/Rflx PCR Qn Negative, HIV Ag/Ab Combo Qual Negative 09/21/24 17:56: VBG pH 7.36, VBG pCO2 29.3 L, VBG pO2 89.8 H, VBG HCO3 16.3 L, VBG Total CO2 17.2 L, VBG O2 Saturation 96.5 H, VBG Base Excess -9.2 L, VBG Lactic Acid 2.7 H 09/21/24 19:47: PT 11.9, INR 1.07, APTT 18.8 L 09/21/24 20:06: Random Glucose 1200 H*, Troponin I 0.05 H 09/21/24 20:30: Urine Opiates Screen Negative, Urine Methadone Screen Negative, Ur Barbituates Screen Negative, Ur Phencyclidine Scrn Negative, Ur Amphetamines Screen Not Reportable, U Benzodiazepines Scrn Negative, Urine Cocaine Screen Negative, U Marijuana (THC) Screen Negative 09/21/24 21:38: Urine Color Yellow, Urine Appearance Clear, Urine pH 6.0, Ur Specific Pitts <= 1.005, Urine Protein Negative, Urine Glucose (UA) 3+, Urine Ketones Negative, Urine Blood Trace-i, Urine Nitrate Negative, Urine Bilirubin Negative, Urine Urobilinogen 0.2, Ur Leukocyte Esterase Negative, Urine RBC 3-5, Urine WBC 3-5, Ur Squamous Epith Cells 3-5, Urine Bacteria 1+, Urine Mucus 1+ 09/21/24 22:23: Sodium 151 H*, Potassium 3.3 L D, Chloride 118 H, Carbon Dioxide 19 L, Anion Gap 17.3 H, BUN 50 H, Creatinine 2.20 H, Estimated Creat Clear 41, Estimated GFR 31 L, Est GFR ( Amer) 38 L D, Glucose 838 H* D, Lactate 3.3 H, Calcium 9.9, Phosphorus 3.1 D, Magnesium 4.0 H D 09/21/24 23:15: Sodium 151 H*, Potassium 3.1 L, Chloride 119 H, Carbon Dioxide 24, Anion Gap 11.1, BUN 50 H, Creatinine 2.30 H, Estimated Creat Clear 39, Estimated GFR 30 L, Est GFR ( Amer) 36 L, Glucose 755 H*, Calcium 10.1, Troponin I 0.04 H 09/22/24 00:25: Sodium 151 H*, Potassium 3.2 L, Chloride 118 H, Carbon Dioxide 22, Anion Gap 14.2, BUN 50 H, Creatinine 2.00 H, Estimated Creat Clear 45, Estimated GFR 35 L, Est GFR ( Amer) 42 L, Glucose 652 H*, Lactate 2.6 H, Calcium 10.1 09/22/24 01:31: Sodium 154 H*, Potassium 3.4 L, Chloride 119 H, Carbon Dioxide 24, Anion Gap 14.4, BUN 48 H, Creatinine 2.00 H, Estimated Creat Clear 45, Estimated GFR 35 L, Est GFR ( Amer) 42 L, Glucose 552 H*, Calcium 9.9, Phosphorus 2.8, Magnesium 3.8 H 09/22/24 02:02: POC Glucose 474 H* 09/22/24 03:09: POC Glucose 356 H* 09/22/24 04:17: POC Glucose 278 H 09/22/24 05:26: WBC 16.0 H, RBC 5.28, Hgb 14.7, Hct 45.7, MCV 86.6, MCH 27.8, MCHC 32.2, RDW 13.5, Plt Count 143, MPV 11.1 H, Neut % (Auto) 72.1, Lymph % (Auto) 17.8, Pacific % (Auto) 8.2, Eos % (Auto) 0.8, Baso % (Auto) 0.5, Neut # (Auto) 11.6 H, Lymph # (Auto) 2.9, [place] # (Auto) 1.3 H, Eos # (Auto) 0.1, Baso # (Auto) 0.1, Total Counted 100, Neutrophils % (Manual) 76, Lymphocytes % (Manual) 20, Monocytes % (Manual) 2, Eosinophils % (Manual) 2, Platelet Estimate Slight decrease, RBC Morphology Normal, Sodium 155 H*, Potassium 3.6, Chloride 121 H, Carbon Dioxide 26, Anion Gap 11.6, BUN 47 H, Creatinine 1.90 H, Estimated Creat Clear 47, Estimated GFR 37 L, Est GFR ( Amer) 45 L, Glucose 254 H D, Calcium 9.7, Phosphorus 4.2 D, Magnesium 3.4 H D 09/22/24 06:27: POC Glucose 212 H I & O for Labs for Last 24 Hours: Intake & Output 09/19/24 09/20/24 09/21/24 09/22/24 23:59 23:59 23:59 23:59 Intake Total 3255.15 / 3475.15 1908.454 / 1908.454 Output Total 1050 / 1050 500 / 500 Balance 2205.15 / 2425.15 1408.454 / 1408.454 Weight 76.294 kg 76.294 kg Constitutional: Present mild distress, average body habitus, chronically ill appearing and cooperative Head: Present atraumatic and normocephalic ENT: Present normal exam Respiratory: Present normal respiratory effort; Absent rhonchi, wheezes or crackles Cardiac: Present Regular Rhythm and Tachycardia GI: Present soft and normal bowel sounds; Absent distention or tenderness Extremities: Present full ROM Comment:: Right AKA Skin: Present intact; Absent erythema Neuro: Present Grossly Intact, alert, awake, oriented x 3 and moves all extremities Assessment and Plan *Assessment and plan (1) Diabetes mellitus, new onset: Status: Acute Category: Medical Code(s): E11.9 - Type 2 diabetes mellitus without complications (2) DKA (diabetic ketoacidosis): Status: Acute Category: Medical Code(s): E11.10 - Type 2 diabetes mellitus with ketoacidosis without coma (3) CHF exacerbation: Status: Acute Category: Medical Code(s): I50.9 - Heart failure, unspecified (4) Stimulant use disorder: Status: Acute Category: Medical Code(s): F15.90 - Other stimulant use, unspecified, uncomplicated (5) Systolic congestive heart failure: Status: Acute Qualifiers: Heart failure chronicity: unspecified Qualified Code(s): I50.20 - Unspecified systolic (congestive) heart failure Category: Medical Code(s): I50.20 - Unspecified systolic (congestive) heart failure (6) Ischemic cardiomyopathy: Status: Acute Category: Medical Code(s): I25.5 - Ischemic cardiomyopathy (7) Sinus tachycardia: Status: Acute Category: Medical Code(s): R00.0 - Tachycardia, unspecified Plan Mr. Ambrose is a 54-year-old male presents with DKA in the setting of markedly elevated glucose (~1200 mg/dL), an anion gap of ~24, and metabolic acidosis. He also has acute kidney injury (likely from volume depletion) and a history of cardiomyopathy/pacemaker with an ejection fraction of ~40%. Troponin levels have trended slightly downward from 0.07 to 0.05, and proBNP remains elevated at 5640, consistent with underlying cardiac dysfunction rather than an acute ischemic event. Notably, there is a history of methamphetamine use, which can exacerbate cardiomyopathy and complicate his clinical course. The current plan involves carefully balanced IV fluids (to address both DKA and ANSHU) while monitoring for fluid overload given his heart failure history, continuation of an insulin infusion, and close telemetry. Antibiotics remain on hold in the absence of a clear infectious source, and social work support is engaged for both food insecurity and substance use issues. Showing some improvement clinically with closure of gap. Will transition to basal bolus regimen. Has developed hypernatremia. Necessitates close monitoring due to high risk for decompensation. De-escalate stepdown level of care. Problems addressed as follows: Diabetic Ketoacidosis (DKA) New diagnosis of diabetes -Discontinue insulin drip. Initiate basal insulin with insulin glargine 15 units this morning, 20 units at night. Monitor for sliding scale needs. Continue sliding scale insulin with fingersticks ACHS -Gap closed overnight, 12 this morning. Morning glucose 254. Down from 1200 on admission. -Potassium 3.6, phosphorus 4.2, magnesium 3.4. -A1c elevated at 13.5 Hyponatremia -Secondary to severe dehydration and metabolic disturbances. Sodium 155, chloride 121. Continue D5 half-normal saline with monitoring of sodium level every 4 hours. Correction rate between 8 to 10 mEq a day. Monitor for side effects. High risk for decompensation. -Repeat CBC, CMP, magnesium and phosphorus ordered for the morning Acute Kidney Injury (ANSHU) - Creatinine 2.70 mg/dL, BUN 55 mg/dL; likely prerenal but cannot rule out chronic component. -Showing improvement with BUN 47, creatinine 1.9 this morning. Congestive Heart Failure / Cardiomyopathy - EF ~40% on echo; pacemaker in place; elevated proBNP (5640). - troponin has decreased slightly (0.07- 0.05), suggesting no active ACS. - Telemetry monitoring for arrhythmias or ischemic changes. Methamphetamine Use - History of methamphetamine use may contribute to cardiomyopathy and complicates fluid management. - Assess for acute intoxication or withdrawal signs; consider toxicology monitoring as indicated. - Coordinate with social work and/or substance abuse resources for counseling and possible rehabilitation services. Full code Diabetic diet GI prophylaxis with famotidine Lovenox daily ICU/Critical care attestation This patient is critically ill with 35 minutes devoted solely to this patient managing life/organ supporting interventions that required physician assessment. This includes time spent making adjustments in ventilator settings, IV fluid a dministration, titration of pressors, adjustments of medications, discussion of patient with consultants and other care providers as well as updating patient and/or family (if patient by virtue of his/her condition is unable to participate in decision making). This does not include time spent performing separately billed procedures. Time is not concurrent with that of other providers.
[2024-09-22] MEDS: INSULIN GLARGINE 100 UNITS/ML 3ML FLEXPEN 15 UNIT SUBCUT (08:41)
--- NOTE | 2024-09-22 09:49 | PC.NURSE ---
Insuling gtt and IV fluids stopped one hr after glargine administered this AM.
[2024-09-22] MEDS: ACETAMINOPHEN 325MG TAB 650 MG PO (10:10)
[2024-09-22 11:44] LABS: Chloride 116 mmol/L (98-107)
[2024-09-22 11:45] LABS: Potassium 4.7 mmoL/L (3.5-5.1)
[2024-09-22 11:47] LABS: Anion Gap 10.7 mEq/L (5-15); Blood Urea Nitrogen 43 mg/dl (9-20); Carbon Dioxide 28 mmol/L (22.0-30.0); Creatinine Clearance Estimated 47 mL/min (50-200); Estimated Glomerular Filt Rate 37 ml/min (>60); GFR (African American) 45 ML/MIN (>60)
[2024-09-22 11:48] LABS: Calcium 9.1 mg/dl (8.4-10.2); Glucose 208 mg/dl (74-100); Magnesium 2.6 mg/dl (1.6-2.3); Phosphorous 4.7 mg/dl (2.5-4.5)
[2024-09-22] MEDS: humaLOG 100 UNITS/ML 10ML VIAL (SSI) SUBCUT ×3 (12:02→20:18)
[2024-09-22 12:04] LABS: Sodium 150 mmol/L (136-145)
[2024-09-22 13:19] LABS: Chloride 112 mmol/L (98-107); Potassium 3.5 mmoL/L (3.5-5.1); Sodium 146 mmol/L (136-145)
[2024-09-22 13:21] LABS: Blood Urea Nitrogen 44 mg/dl (9-20); Creatinine Clearance Estimated 50 mL/min (50-200); Estimated Glomerular Filt Rate 39 ml/min (>60); GFR (African American) 48 ML/MIN (>60)
[2024-09-22 13:22] LABS: Anion Gap 15.5 mEq/L (5-15); Calcium 9.1 mg/dl (8.4-10.2); Carbon Dioxide 22 mmol/L (22.0-30.0); Glucose 380 mg/dl (74-100); Magnesium 2.3 mg/dl (1.6-2.3); Phosphorous 4.1 mg/dl (2.5-4.5)
--- NOTE | 2024-09-22 14:08 | SW/DCPLANNER ---
I spoke w/ this patient regarding resources once medically stable for discharge. Patient stated that he lives in a house w/ several roommates and his dogs. Patient stated that he plans to go back home at time of discharge. Patient stated that he does use methamphetamines and drinks roughly 18 beers in a month. Patient stated that he is not interested in inpatient/outpatient rehab resources at this time. I did provide this patient w/ [facility] Resource List today. Patient did not have any further questions/needs at this time. I will continue to follow up w/ this patient. Discharge date is unknown at this time.
[2024-09-22] MEDS: NICOTINE 21MG/24HR PATCH 21 MG TD (14:50)
[2024-09-22 16:58] LABS: POC Glucose,Bedside 383 (70-110)
[2024-09-22 17:15] LABS: Chloride 113 mmol/L (98-107); Potassium 4.1 mmoL/L (3.5-5.1); Sodium 142 mmol/L (136-145)
[2024-09-22 17:17] LABS: Blood Urea Nitrogen 41 mg/dl (9-20); Creatinine Clearance Estimated 56 mL/min (50-200); Estimated Glomerular Filt Rate 45 ml/min (>60); GFR (African American) 55 ML/MIN (>60)
[2024-09-22 17:18] LABS: Anion Gap 14.1 mEq/L (5-15); Calcium 8.7 mg/dl (8.4-10.2); Carbon Dioxide 19 mmol/L (22.0-30.0); Glucose 327 mg/dl (74-100); Magnesium 2.2 mg/dl (1.6-2.3); Phosphorous 2.9 mg/dl (2.5-4.5)
--- NOTE | 2024-09-22 19:05 | PEERSUPPORT ---
Peer Support Note Patient Information Patient Information: DOS: 09/22/2024 ? Reason: ETOH, Meth ? [place]: ? Pt shared in length his history of substance use and life leading up to present moment. ? Pt is aware to make priority of his health. He is not interested in outpatient or inpatient treatment for recovery at this time. ? He does desire behavioral health for counseling to process grief of his , as approaching the one year date of her . ? He has a plan in place to attend primary care through [facility], Dr. Hdz for his primary health care. ? Pt is able to express emotions appropriately while sharing as well as self-soothe into a positive state showing pictures of his family that he loves very much and finds purpose in being a dad, grandpa, brother, etc. ? Plan of action: Attend follow up appointments Take medication as prescribed and directed Refrain from drinking and or using substances Schedule appointment with PCP, Dr. Hdz in [place]? [place] Schedule appointment with , [facility] Practice gratitude Pt is agreeing to follow up phone calls with peer support for recovery focus and support. ? Pt expresses much gratitude to the staff and treatment team of [facility], saying he feels like an entire new man. ? Thank you for allowing [facility] Bridge peer support assist in caring for patient!
[2024-09-22 20:13] LABS: POC Glucose,Bedside 247 (70-110)
[2024-09-22] MEDS: METHOCARBAMOL 500MG TABLET 500 MG PO (20:19)
[2024-09-22] MEDS: INSULIN GLARGINE 100 UNITS/ML 3ML FLEXPEN 20 UNIT SUBCUT (20:24)
[2024-09-22] MEDS: LIDOCAINE 5% TRANSDERMAL PATCH 1 EACH TP (20:53)
[2024-09-23] VITALS (9 sets, daily range): BP systolic 86–149; BP diastolic 45–89; PULSE 78–94; RESP 16–20; TEMP 36.4–36.8; O2SAT 96–100; BMI 27.2
--- NOTE | 2024-09-23 04:39 | PC.NURSE ---
Pt rested well this shift. Pt has had no complaints since receiving Robaxin and lidocaine patch for back pain earlier this shift. HS FS was 247, pt was medicated per OCT. Pt tolerates transfer to bathroom, and remains on RA. NSR on tele. Call light in reach.
[2024-09-23 05:55] LABS: POC Glucose,Bedside 404 (70-110)
[2024-09-23] MEDS: humaLOG 100 UNITS/ML 10ML VIAL (SSI) SUBCUT ×4 (05:56→21:34)
[2024-09-23 07:18] LABS: Basophils # 0.1 K/mm3 (0-0.2); Basophils % 0.5 % (0.1-2.0); Eosinophils # 0.3 K/mm3 (0.0-0.4); Eosinophils % 2.1 % (0.1-12.0); Hematocrit 39.2 % (42.0-52.0); Hemoglobin 12.7 g/dL (14.1-18.0); Lymphocytes # 3.1 K/mm3 (0.7-4.5); Lymphocytes % 26.6 % (10-50); Mean Corpuscular HGB Conc 32.4 g/dL (31.8-35.4); Mean Corpuscular Hemoglobin 28.3 pg (27.0-31.2); Mean Corpuscular Volume 87.5 fl (80-94); Mean Platelet Volume 11.5 fl (7.4-10.4); Monocytes # 0.6 K/mm3 (0.1-1.0); Monocytes % 5.2 % (1.7-9.3); Neutrophils # 7.7 K/mm3 (1.8-7.8); Neutrophils % 65.3 % (37.0-80.0); Platelet Count 105 K/mm3 (142-424); Red Blood Count 4.48 M/mm3 (4.60-6.20); Red Cell Distribution Width 13.3 % (11.5-17.5); White Blood Count 11.8 K/mm3 (4.8-10.8)
[2024-09-23 07:27] LABS: POC Glucose,Bedside 406 (70-110)
[2024-09-23 07:27] LABS: POC Glucose,Bedside 189 (70-110)
[2024-09-23 07:29] LABS: Alanine Aminotransferase 46 U/L (12-78); Albumin Level 3.1 g/dl (3.5-5.0); Albumin/Globulin Ratio 1.3 (1.1-1.8); Alkaline Phosphatase 92 U/L (38-126); Anion Gap 8.9 mEq/L (5-15); Aspartate Amino Transferase 63 U/L (17-59); Bilirubin,Total 0.4 mg/dl (0.2-1.3); Blood Urea Nitrogen 26 mg/dl (9-20); Calcium 9.1 mg/dl (8.4-10.2); Carbon Dioxide 26 mmol/L (22.0-30.0); Chloride 112 mmol/L (98-107); Creatinine Clearance Estimated 82 mL/min (50-200); Estimated Glomerular Filt Rate 63 ml/min (>60); GFR (African American) 76 ML/MIN (>60); Globulin 2.3 g/dL (1.3-3.2); Magnesium 2.1 mg/dl (1.6-2.3); Potassium 3.9 mmoL/L (3.5-5.1); Sodium 143 mmol/L (136-145); Total Protein,Serum 5.4 g/dl (6.3-8.2)
[2024-09-23 07:32] LABS: Glucose 405 mg/dl (74-100)
--- NOTE | 2024-09-23 07:53 | P.PN_ITS ---
Subjective *Date: 09/23/24 *Time: 18:00 Interval history: Stable on room air. Afebrile. Tolerating basal bolus regimen. Further adjustment today. Patient states he is feeling much better. No nausea or vomiting. Using walker to ambulate. Discussed the need for him to administer his own insulin. Tearful and appreciative on exam of his treatment. Medical Exam Vital signs and Labs for Last 24 Hours: Vital Signs Temp Pulse Pulse Resp BP BP Pulse Ox 09/23/24 06:44 09/23/24 06:00 87 18 118/89 99 09/23/24 05:00 09/23/24 04:00 09/23/24 04:00 98.2 F 88 20 142/77 H 97 09/23/24 04:00 85 09/23/24 03:00 09/23/24 02:00 78 18 131/77 99 09/23/24 01:00 09/23/24 00:00 80 09/23/24 00:00 84 20 149/73 H 98 09/23/24 00:00 98.1 F 09/22/24 22:59 09/22/24 22:00 88 18 150/85 H 100 09/22/24 21:00 09/22/24 20:00 98 H 09/22/24 20:00 95 H 20 148/86 H 100 09/22/24 19:33 09/22/24 18:32 09/22/24 18:30 109 H 18 146/90 H 99 09/22/24 17:00 09/22/24 16:00 90 09/22/24 16:00 09/22/24 16:00 98.1 F 09/22/24 15:00 09/22/24 13:00 09/22/24 12:00 84 09/22/24 12:00 09/22/24 12:00 97.7 F 84 14 123/71 99 09/22/24 12:00 123/71 09/22/24 11:45 86 13 97 09/22/24 11:30 87 14 98 09/22/24 11:15 87 22 96 09/22/24 11:00 09/22/24 11:00 85 24 103/53 L 96 09/22/24 10:00 90 17 90/52 L 97 09/22/24 09:00 94 H 17 127/65 98 09/22/24 08:38 09/22/24 08:00 83 09/22/24 08:00 09/22/24 08:00 97.6 F 82 15 117/66 95 O2 Del Method 09/23/24 06:44 Room Air 09/23/24 06:00 Room Air 09/23/24 05:00 Room Air 09/23/24 04:00 Room Air 09/23/24 04:00 Room Air 09/23/24 04:00 09/23/24 03:00 Room Air 09/23/24 02:00 Room Air 09/23/24 01:00 Room Air 09/23/24 00:00 09/23/24 00:00 Room Air 09/23/24 00:00 09/22/24 22:59 Room Air 09/22/24 22:00 Room Air 09/22/24 21:00 Room Air 09/22/24 20:00 09/22/24 20:00 Room Air 09/22/24 19:33 Room Air 09/22/24 18:32 Room Air 09/22/24 18:30 Room Air 09/22/24 17:00 Room Air 09/22/24 16:00 09/22/24 16:00 Room Air 09/22/24 16:00 09/22/24 15:00 Room Air 09/22/24 13:00 Room Air 09/22/24 12:00 09/22/24 12:00 Room Air 09/22/24 12:00 Room Air 09/22/24 12:00 09/22/24 11:45 09/22/24 11:30 09/22/24 11:15 09/22/24 11:00 Room Air 09/22/24 11:00 Room Air 09/22/24 10:00 Room Air 09/22/24 09:00 Room Air 09/22/24 08:38 Room Air 09/22/24 08:00 09/22/24 08:00 Room Air 09/22/24 08:00 Room Air Intake and Output 09/22/24 09/22/24 09/23/24 15:59 23:59 07:59 Intake Total 540 / 2928.454 480 / 2928.454 Output Total 480 / 980 0 / 980 Balance 60 / 1948.454 480 / 1948.454 Intake: Intake, Oral Amount 540 / 2140 480 / 2140 Output: Output, Urine Amount 480 / 980 0 / 980 Other: Number of Unmeasured Voids 1 1 1 Number of Bowel Movements 1 1 Weight 76.294 kg 83.461 kg Patient Weight 09/23/24 23:59 Weight 83.461 kg Laboratory Results - last 24 hr 09/22/24 08:36: POC Glucose 189 H 09/22/24 09:34: Sodium 150 H, Potassium 4.7 D, Chloride 116 H, Carbon Dioxide 28, Anion Gap 10.7, BUN 43 H, Creatinine 1.90 H, Estimated Creat Clear 47, Est imated GFR 37 L, Est GFR ( Amer) 45 L, Glucose 208 H, Calcium 9.1, Phosphorus 4.7 H, Magnesium 2.6 H D 09/22/24 11:30: POC Glucose 406 H* 09/22/24 12:54: Sodium 146 H, Potassium 3.5 D, Chloride 112 H, Carbon Dioxide 22, Anion Gap 15.5 H, BUN 44 H, Creatinine 1.80 H, Estimated Creat Clear 50, Estimated GFR 39 L, Est GFR ( Amer) 48 L, Glucose 380 H D, Calcium 9.1, Phosphorus 4.1, Magnesium 2.3 D 09/22/24 16:50: POC Glucose 383 H* 09/22/24 17:00: Sodium 142, Potassium 4.1, Chloride 113 H, Carbon Dioxide 19 L, Anion Gap 14.1, BUN 41 H, Creatinine 1.60 H, Estimated Creat Clear 56, Estimated GFR 45 L, Est GFR ( Amer) 55 L, Glucose 327 H, Calcium 8.7, Phosphorus 2.9 D, Magnesium 2.2 09/22/24 20:03: POC Glucose 247 H 09/23/24 05:46: POC Glucose 404 H* 09/23/24 06:28: WBC 11.8 H D, RBC 4.48 L, Hgb 12.7 L, Hct 39.2 L, MCV 87.5, MCH 28.3, MCHC 32.4, RDW 13.3, Plt Count 105 L D, MPV 11.5 H, Neut % (Auto) 65.3, Lymph % (Auto) 26.6, [place] % (Auto) 5.2, Eos % (Auto) 2.1, Baso % (Auto) 0.5, Neut # (Auto) 7.7, Lymph # (Auto) 3.1, [place] # (Auto) 0.6, Eos # (Auto) 0.3, Baso # (Auto) 0.1, Sodium 143, Potassium 3.9, Chloride 112 H, Carbon Dioxide 26, Anion Gap 8.9, BUN 26 H D, Creatinine 1.20 D, Estimated Creat Clear 82, Estimated GFR 63, Est GFR ( Amer) 76 D, Glucose 405 H* D, Calcium 9.1, Phosphorus 3.0, Magnesium 2.1, Total Bilirubin 0.4, AST 63 H D, ALT 46 D, Alkaline Phosphatase 92, Total Protein 5.4 L, Albumin 3.1 L, Globulin 2.3, Albumin/Globulin Ratio 1.3 I & O for Labs for Last 24 Hours: Intake & Output 09/20/24 09/21/24 09/22/24 09/23/24 23:59 23:59 23:59 23:59 Intake Total 3255.15 / 3475.15 2928.454 / 2928.454 Output Total 1050 / 1050 980 / 980 Balance 2205.15 / 2425.15 1948.454 / 1948.454 Weight 76.294 kg 76.294 kg 83.461 kg Microbiology Reports for the Last 24 Hours: Microbiology 09/21/24 18:40 Blood Blood Culture - Preliminary NO GROWTH AFTER 24 HOURS 09/21/24 18:40 Blood Blood Culture - Preliminary NO GROWTH AFTER 24 HOURS Constitutional: Present no acute distress, average body habitus, chronically ill appearing and cooperative Head: Present atraumatic and normocephalic ENT: Present normal exam Respiratory: Present normal respiratory effort; Absent rhonchi, wheezes or crackles Cardiac: Present Regular Rhythm and Tachycardia GI: Present soft and normal bowel sounds; Absent distention or tenderness Extremities: Present full ROM Comment:: Right AKA Skin: Present intact; Absent erythema Neuro: Present Grossly Intact, alert, awake, oriented x 3 and moves all extremities Assessment and Plan *Assessment and plan (1) Diabetes mellitus, new onset: Status: Acute Category: Medical Code(s): E11.9 - Type 2 diabetes mellitus without complications (2) DKA (diabetic ketoacidosis): Status: Acute Category: Medical Code(s): E11.10 - Type 2 diabetes mellitus with ketoacidosis without coma (3) CHF exacerbation: Status: Acute Category: Medical Code(s): I50.9 - Heart failure, unspecified (4) Stimulant use disorder: Status: Acute Category: Medical Code(s): F15.90 - Other stimulant use, unspecified, uncomplicated (5) Systolic congestive heart failure: Status: Acute Qualifiers: Heart failure chronicity: unspecified Qualified Code(s): I50.20 - Unspecified systolic (congestive) heart failure Category: Medical Code(s): I50.20 - Unspecified systolic (congestive) heart failure (6) Ischemic cardiomyopathy: Status: Acute Category: Medical Code(s): I25.5 - Ischemic cardiomyopathy (7) Sinus tachycardia: Status: Resolved Category: Medical Code(s): R00.0 - Tachycardia, unspecified Plan Mr. Ambrose is a 54-year-old male presents with DKA in the setting of markedly elevated glucose (~1200 mg/dL), an anion gap of ~24, and metabolic acidosis. He also has acute kidney injury (likely from volume depletion) and a history of cardiomyopathy/pacemaker with an ejection fraction of ~40%. Troponin levels have trended slightly downward from 0.07 to 0.05, and proBNP remains elevated at 5640, consistent with underlying cardiac dysfunction rather than an acute ischemic event. Notably, there is a history of methamphetamine use, which can exacerbate cardiomyopathy and complicate his clinical course. The current plan involves carefully balanced IV fluids (to address both DKA and ANSHU) while monitoring for fluid overload given his heart failure history, continuation of an insulin infusion, and close telemetry. Antibiotics remain on hold in the absence of a clear infectious source, and social work support is engaged for both food insecurity and substance use issues. Continuing to do well. Gap remains closed. Tolerating basal bolus regimen. Morning glucose 405, further adjustments today. Problems addressed as follows: Diabetic Ketoacidosis (DKA) New diagnosis of diabetes -Increase insulin glargine to 40 units tonight. Continue sliding scale insulin. Required 30 units yesterday. -Initiate metformin 500 mg twice daily -Initiate Jardiance 10 mg daily -Morning glucose 405. Anion gap closed. Remainder of electrolytes normal with phosphorus 3, magnesium 2.1, potassium 3.9 -A1c elevated at 13.5 Hypernatremia -Secondary to severe dehydration and metabolic disturbances. Sodium peaked at 155, improved to 143 this morning, chloride 112. -No further IV fluids. -Repeat CBC, CMP, magnesium and phosphorus ordered for the morning Acute Kidney Injury (ANSHU) - Creatinine 2.70 mg/dL, BUN 55 mg/dL; likely prerenal but cannot rule out chronic component. -Continuing to improve. BUN 26, creatinine 1.2 today. Appears to be patient's baseline. Congestive Heart Failure / Cardiomyopathy - EF ~40% on echo; pacemaker in place; elevated proBNP (5640). - troponin has decreased slightly (0.07- 0.05), suggesting no active ACS. -Discontinue telemetry -Plan for outpatient cardiology follow-up Methamphetamine Use - History of methamphetamine use may contribute to cardiomyopathy and complicates fluid management. - Assess for acute intoxication or withdrawal signs; consider toxicology monitoring as indicated. - Coordinate with social work and/or substance abuse resources for counseling and possible rehabilitation services. Full code Diabetic diet GI prophylaxis with famotidine Lovenox daily
[2024-09-23] MEDS: SODIUM CHLORIDE 0.9% 10ML VIAL 8 ML IV (09:33)
[2024-09-23] MEDS: ENOXAPARIN 40MG/0.4ML SYRINGE 40 MG SUBCUT (09:33)
[2024-09-23] MEDS: METHOCARBAMOL 500MG TABLET 500 MG PO ×2 (09:33→20:54)
[2024-09-23] MEDS: FAMOTIDINE 20MG/2ML VIAL 20 MG IV (09:34)
[2024-09-23] MEDS: EMPAGLIFLOZIN 10MG TABLET 10 MG PO (09:34)
[2024-09-23 12:33] LABS: POC Glucose,Bedside 415 (70-110)
[2024-09-23 16:34] LABS: POC Glucose,Bedside 223 (70-110)
[2024-09-23] MEDS: METFORMIN 500MG TABLET 500 MG PO (16:38)
[2024-09-23] MEDS: ACETAMINOPHEN 325MG TAB 650 MG PO (17:50)
[2024-09-23] MEDS: LIDOCAINE 5% TRANSDERMAL PATCH 1 EACH TP (20:53)
[2024-09-23] MEDS: FAMOTIDINE 20MG TABLET 20 MG PO (20:53)
[2024-09-23] MEDS: INSULIN GLARGINE 100 UNITS/ML 3ML FLEXPEN 40 UNIT SUBCUT (21:05)
[2024-09-23 21:15] LABS: POC Glucose,Bedside 538 (70-110)
[2024-09-23 21:35] LABS: Glucose,Random 474 mg/dL (74-100)
--- NOTE | 2024-09-23 22:35 | PC.NURSE ---
FSBS 538. Call to lab to confirm with result of 474. Results called to MIRELLA Greer.
[2024-09-24 04:00] VITALS: BP 144/83; PULSE 77; RESP 16; TEMP 36.6; O2SAT 99; BMI 25.4
--- NOTE | 2024-09-24 04:48 | PC.NURSE ---
Pt is A/O X 3. He has rested on and off throughout shift . He was able to check FSBS with reinforced instructions and administer insulin with little difficulty including drawing up dosage. FSBS at 9m was 538, see previous note. Recheck by lab was 474. Pt denies eating any foods other than what has been provided by staff at the hospital. He denies s/s of hyperglycemia at the time . Lidocaine patch to back for pain and discomfort. He ambulates to BR on his own. VSS for pt,
[2024-09-24 08:00] VITALS: BP 142/72; PULSE 82; RESP 16; TEMP 36.6; O2SAT 100
[2024-09-24] MEDS: METHOCARBAMOL 500MG TABLET 500 MG PO (08:28)
[2024-09-24] MEDS: FAMOTIDINE 20MG TABLET 20 MG PO (08:28)
[2024-09-24] MEDS: EMPAGLIFLOZIN 10MG TABLET 10 MG PO (08:28)
[2024-09-24] MEDS: METFORMIN 500MG TABLET 500 MG PO (08:28)
[2024-09-24 08:38] LABS: Basophils % 0.4 % (0.1-2.0); Eosinophils # 0.2 K/mm3 (0.0-0.4); Eosinophils % 2.3 % (0.1-12.0); Hematocrit 42.1 % (42.0-52.0); Hemoglobin 13.6 g/dL (14.1-18.0); Lymphocytes # 2.6 K/mm3 (0.7-4.5); Lymphocytes % 27.2 % (10-50); Mean Corpuscular HGB Conc 32.3 g/dL (31.8-35.4); Mean Corpuscular Hemoglobin 28.4 pg (27.0-31.2); Mean Corpuscular Volume 87.9 fl (80-94); Mean Platelet Volume 11.6 fl (7.4-10.4); Monocytes # 0.6 K/mm3 (0.1-1.0); Monocytes % 6.8 % (1.7-9.3); Neutrophils # 5.9 K/mm3 (1.8-7.8); Platelet Count 107 K/mm3 (142-424); Red Blood Count 4.79 M/mm3 (4.60-6.20); Red Cell Distribution Width 13.1 % (11.5-17.5); White Blood Count 9.4 K/mm3 (4.8-10.8)
[2024-09-24 08:45] LABS: Albumin Level 3.3 g/dl (3.5-5.0); Chloride 113 mmol/L (98-107); Potassium 3.6 mmoL/L (3.5-5.1); Sodium 148 mmol/L (136-145)
[2024-09-24 08:48] LABS: Alanine Aminotransferase 48 U/L (12-78); Albumin/Globulin Ratio 1.2 (1.1-1.8); Alkaline Phosphatase 93 U/L (38-126); Anion Gap 11.6 mEq/L (5-15); Aspartate Amino Transferase 45 U/L (17-59); Bilirubin,Total 0.4 mg/dl (0.2-1.3); Blood Urea Nitrogen 20 mg/dl (9-20); Calcium 9.6 mg/dl (8.4-10.2); Carbon Dioxide 27 mmol/L (22.0-30.0); Creatinine Clearance Estimated 92 mL/min (50-200); Estimated Glomerular Filt Rate 78 ml/min (>60); GFR (African American) 94 ML/MIN (>60); Globulin 2.8 g/dL (1.3-3.2); Glucose 126 mg/dl (74-100); Total Protein,Serum 6.1 g/dl (6.3-8.2)
[2024-09-24 08:49] LABS: Magnesium 2.3 mg/dl (1.6-2.3)
[2024-09-24 10:59] LABS: POC Glucose,Bedside 300 (70-110)
[2024-09-24] MEDS: humaLOG 100 UNITS/ML 10ML VIAL (SSI) SUBCUT (11:35)
--- NOTE | 2024-09-24 12:52 | P.DS_ITS ---
General Admission date:: 09/21/24 Discharge date: 09/24/24 HPI HPI HPI: The patient is a 54-year-old male with a past medical history of hypertension, hyperlipidemia, cardiomyopathy with pacemaker placement, and right lower extremity above-knee amputation who presents to the Emergency Department with generalized weakness. According to the patient, he consumed two ?tall boy? beers prior to arrival and subsequently fell asleep. His roommates were unable to wake him and called EMS. Upon EMS evaluation, he was easily arousable and fully oriented, but was found to have low blood pressure and appeared ?sluggish,? prompting transport to the ED. In the ED, the patient denies chest pain, shortness of breath, nausea, vomiting, or abdominal pain. He reports feeling very thirsty and notes a dry mouth over the past several days. He denies recent fevers or infectious symptoms. He does endorse limited food intake at home due to scarcity. On arrival, he was awake, alert, and oriented ?4, with mild hypotension (blood pressure 84/56) and tachycardia (heart rate 102). He is afebrile. Physical exam is notable for a chronically ill-appearing male with a right lower extremity above-knee amputation and no acute distress. No external trauma or focal neurological deficits are identified. He has no chest wall tenderness or abdominal tenderness on exam. Given his presentation and history, initial differential diagnoses included acute coronary syndrome/myocardial infarction, sepsis, urinary tract infection, dehydration, metabolic or endocrinologic abnormality, intoxication, or withdrawal. However, labs were significant for markedly elevated glucose (>1000), metabolic acidosis, elevated anion gap, and acute kidney injury, raising concern for diabetic ketoacidosis (DKA). Additional testing showed WBC 16.4 (with neutrophilia), lactate of 2.7, creatinine 2.7, BUN 55, and an A1c of 13.5. Troponin was slightly elevated at 0.07, and BNP was 5640. Imaging did not reveal any acute intra-abdominal or intrathoracic pathology. He was started on an insulin drip and continuous IV fluids (LR, ?rally pack?) for correction of hyperglycemia, acidosis, and volume depletion. He was also provided oral fluids and a meal tray given limited food access at home. 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 A bedside cardiac ultrasound demonstrated a regional wall motion abnormality posterolaterally and an estimated ejection fraction of about 40% with no pericardial effusion or right heart strain. Pacer wires were noted in place. After discussion with hospital medicine regarding his DKA, ANSHU, and concern for possible CHF exacerbation, he was admitted for inpatient management. The patient understands the need for admission and agrees with the plan. Hospital Course Hospital Course Hospital Course: Mr. Ambrose is a 54-year-old male presents with DKA in the setting of markedly elevated glucose (~1200 mg/dL), an anion gap of ~24, and metabolic acidosis. He also has acute kidney injury (likely from volume depletion) and a history of cardiomyopathy/pacemaker with an ejection fraction of ~40%. Troponin levels have trended slightly downward from 0.07 to 0.05, and proBNP remains elevated at 5640, consistent with underlying cardiac dysfunction rather than an acute ischemic event. Notably, there is a history of methamphetamine use, which can exacerbate cardiomyopathy and complicate his clinical course. The current plan involves carefully balanced IV fluids (to address both DKA and ANSHU) while monit oring for fluid overload given his heart failure history, continuation of an insulin infusion, and close telemetry. Antibiotics remain on hold in the absence of a clear infectious source. Patient's DKA resolved with treatment per protocol. Overall saw significant improvement. Transitioned to basal bolus regimen with oral agents as well for diabetes. Showing good improvement. Patient administering his own insulin. Counseled on medication administration, management. Stable to discharge home with close follow-up as an outpatient. Referred to Dr. Hdz for further treatment as an outpatient. Problems addressed as follows: Diabetic Ketoacidosis (DKA) New diagnosis of diabetes -Presented in severe DKA. Glucose severely elevated with high anion gap. Initiated on insulin drip and IV fluids. Anion gap showed gradual improvement and closure. Was transitioned to basal bolus regimen. Tolerating insulin glargine with sliding scale with meals. Will transition to insulin glargine 50 units nightly. Initiated on Humalog 10 units with meals based on patient's needs of 15+ units with meals during admission. Ordered lancets and meter. Encouraged to check fingerstick 3 times a day. Patient was also started on metformin 500 mg twice daily and Jardiance 10 mg daily. Showing good improvement in diabetes control. Blood sugar 126 on morning of discharge. A1c on admission elevated at 13.5. Needs repeat A1c in 3 months. Hypernatremia; improved -Secondary to severe dehydration and metabolic disturbances. Sodium peaked at 155, stabilized in the mid 140s. Chloride remains in the 110s. Repeat labs in 1 to 2 weeks to monitor for improvement. Tolerating p.o. fluids. Encourage free water intake. Acute Kidney Injury (ANSHU); resolved - Creatinine 2.70 mg/dL, BUN 55 mg/dL; likely prerenal. Improved to BUN 20, creatinine 1.0 by morning of discharge. Would benefit from repeat labs in 1 to 2 weeks to monitor stability of kidney function and electrolytes. Congestive Heart Failure / Cardiomyopathy - EF ~40% on echo; pacemaker in place; elevated proBNP (5640). troponin has decreased slightly (0.07- 0.05), suggesting no active ACS. Plan for outpatient cardiology follow-up. Patient asymptomatic with no chest pain. Initiated on Jardiance for diabetes and CHF, continue Lipitor 40 mg nightly, continue lisinopril 20 mg daily for hypertension. Methamphetamine Use - History of methamphetamine use may contribute to cardiomyopathy and complicates fluid management. No acute signs of withdrawal or intoxication. Total time spent on discharge 40 minutes in counseling, documentation, chart review, and direct care with patient. Exam Data for Last 24 hours Vital signs and Labs for Last 24 Hours: Temp Pulse Resp BP Pulse Ox O2 Del Method O2 Flow Rate 98 F 82 16 142/72 H 100 Room Air 2 09/24/24 08:00 09/24/24 08:00 09/24/24 08:00 09/24/24 08:00 09/24/24 08:00 09/24/24 12:13 09/22/24 05:15 Laboratory Results - last 24 hr 09/23/24 16:27: POC Glucose 223 H 09/23/24 20:59: POC Glucose 538 H* 09/23/24 21:15: Random Glucose 474 H* D 09/24/24 07:08: WBC 9.4, RBC 4.79, Hgb 13.6 L, Hct 42.1, MCV 87.9, MCH 28.4, MCHC 32.3, RDW 13.1, Plt Count 107 L, MPV 11.6 H, Neut % (Auto) 63.0, Lymph % (Auto) 27.2, Cameron % (Auto) 6.8, Eos % (Auto) 2.3, Baso % (Auto) 0.4, Neut # (Auto) 5.9, Lymph # (Auto) 2.6, Cameron # (Auto) 0.6, Eos # (Auto) 0.2, Baso # (Auto) 0.0, Sodium 148 H, Potassium 3.6, Chloride 113 H, Carbon Dioxide 27, Anion Gap 11.6, BUN 20, Creatinine 1.00, Estimated Creat Clear 92, Estimated GFR 78, Est GFR ( Amer) 94 D, Glucose 126 H, Calcium 9.6, Magnesium 2.3, Total Bilirubin 0.4, AST 45 D, ALT 48, Alkaline Phosphatase 93, Total Protein 6.1 L, Albumin 3.3 L, Globulin 2.8, Albumin/Globulin Ratio 1.2 09/24/24 10:52: POC Glucose 300 H I & O for Last 24 hours: Intake & Output 09/21/24 09/22/24 09/23/24 09/24/24 23:59 23:59 23:59 23:59 Intake Total 3255.15 / 3475.15 2928.454 / 2928.454 2460 / 2460 360 / 360 Output Total 1050 / 1050 980 / 980 0 / 0 0 / 0 Balance 2205.15 / 2425.15 1948.454 / 2750.193 2849 / 2460 360 / 360 Weight 76.294 kg 76.294 kg 83.461 kg 77.746 kg Microbiology Reports for the Last 24 Hours: Microbiology 09/21/24 18:40 Blood Blood Culture - Preliminary NO GROWTH AFTER 48 HOURS 09/21/24 18:40 Blood Blood Culture - Preliminary NO GROWTH AFTER 48 HOURS Constitutional Constitutional: no acute distress, average body habitus, chronically ill appearing and cooperative *Routine HEENT Exam Head: Present normocephalic Eye: Present EOMI and PERRL ENT: Present mucous membranes moist *Routine Neck Exam Neck: Present supple; Absent lymphadenopathy *Routine Respiratory Exam Respiratory: Present CTA bilaterally; Absent rhonchi, stridor, wheezes or crackles *Routine Cardiovascular Exam Cardiovascular: Present RRR *Routine Abdominal Exam Abdominal: Present soft and normoactive bowel sounds; Absent tenderness *Routine Rectal Exam Patient deferred: visual exam *Routine Exam Patient deferred: penile exam *Routine Extremities Exam Extremities: Absent cyanosis, clubbing or edema Comments: right AKA *Routine Skin Exam Skin: Present intact and warm; Absent rash *Routine Neurological Exam Neurological: Present alert, oriented X3 and moving all extremities; Absent altered mental status Results Data Completed and Pending Labs on day of discharge: Labs from last 24 hours 09/24/24 09/24/24 09/23/24 10:52 07:08 21:15 WBC 9.4 RBC 4.79 Hgb 13.6 L Hct 42.1 MCV 87.9 MCH 28.4 MCHC 32.3 RDW 13.1 Plt Count 107 L MPV 11.6 H Neut % (Auto) 63.0 Lymph % (Auto) 27.2 Cameron % (Auto) 6.8 Eos % (Auto) 2.3 Baso % (Auto) 0.4 Neut # (Auto) 5.9 Lymph # (Auto) 2.6 Cameron # (Auto) 0.6 Eos # (Auto) 0.2 Baso # (Auto) 0.0 Sodium 148 H Potassium 3.6 Chloride 113 H Carbon Dioxide 27 Anion Gap 11.6 BUN 20 Creatinine 1.00 Estimated Creat Clear 92 Estimated GFR 78 Est GFR ( Amer) 94 D Glucose 126 H POC Glucose 300 H Random Glucose 474 H* D Calcium 9.6 Magnesium 2.3 Total Bilirubin 0.4 AST 45 D ALT 48 Alkaline Phosphatase 93 Total Protein 6.1 L Albumin 3.3 L Globulin 2.8 Albumin/Globulin Ratio 1.2 09/23/24 09/23/24 20:59 16:27 WBC RBC Hgb Hct MCV MCH MCHC RDW Plt Count MPV Neut % (Auto) Lymph % (Auto) Cameron % (Auto) Eos % (Auto) Baso % (Auto) Neut # (Auto) Lymph # (Auto) Cameron # (Auto) Eos # (Auto) Baso # (Auto) Sodium Potassium Chloride Carbon Dioxide Anion Gap BUN Creatinine Estimated Creat Clear Estimated GFR Est GFR ( Amer) Glucose POC Glucose 538 H* 223 H Random Glucose Calcium Magnesium Total Bilirubin AST ALT Alkaline Phosphatase Total Protein Albumin Globulin Albumin/Globulin Ratio Preliminary micro results at discharge 09/21/24 18:40 Blood Culture - Preliminary Blood NO GROWTH AFTER 48 HOURS 09/21/24 18:40 Blood Culture - Preliminary Blood NO GROWTH AFTER 48 HOURS DS: Diagnosis Discharge Diagnosis (1) Diabetes mellitus, new onset: Status: Acute Code(s): E11.9 - Type 2 diabetes mellitus without complications (2) DKA (diabetic ketoacidosis): Status: Acute Code(s): E11.10 - Type 2 diabetes mellitus with ketoacidosis without coma (3) CHF exacerbation: Status: Acute Code(s): I50.9 - Heart failure, unspecified (4) Stimulant use disorder: Status: Acute Code(s): F15.90 - Other stimulant use, unspecified, uncomplicated (5) Systolic congestive heart failure: Status: Acute Code(s): I50.20 - Unspecified systolic (congestive) heart failure Qualifiers: Heart failure chronicity: unspecified Qualified Code(s): I50.20 - Unspecified systolic (congestive) heart failure (6) Ischemic cardiomyopathy: Status: Acute Code(s): I25.5 - Ischemic cardiomyopathy (7) Sinus tachycardia: Status: Resolved Code(s): R00.0 - Tachycardia, unspecified Meds Home Medications and Allergies Home Medications ?Medication ?Instructions ?Recorded ?Confirmed ?Type atorvastatin 40 mg tablet 40 mg PO HS #90 tabs 10/23/22 09/22/24 Rx lisinopril 20 mg tablet 20 mg PO DAILY #90 tabs 10/23/22 09/22/24 Rx blood sugar diagnostic (Accu-Chek #100 ea 09/24/24 Rx Guide test strips) blood-glucose meter (Accu-Chek #1 ea 09/24/24 Rx Guide Glucose Meter) empagliflozin 10 mg tablet 10 mg PO DAILY 30 days #30 tabs 09/24/24 Rx (Jardiance) insulin glargine 100 unit/mL (3 50 unit (0.5 mL) SQ HS #15 mL 09/24/24 Rx mL) subcutaneous pen (Lantus Solostar U-100 Insulin) insulin lispro 100 unit/mL 10 unit (0.1 mL) SQ TID #15 mL 09/24/24 Rx subcutaneous pen (Humalog KwikPen (U-100) Insulin) lancets 32 gauge #100 ea 09/24/24 Rx metformin 500 mg tablet 500 mg PO BIDWMEAL 30 days #60 tabs 09/24/24 Rx pen needle, diabetic 31 gauge x #100 ea 09/24/24 Rx 1/ New Prescriptions to Start Prescriptions: blood sugar diagnostic [Accu-Chek Guide test strips] Ernesto Godinez blood-glucose meter [Accu-Chek Guide Glucose Meter] Ernesto Godinez empagliflozin [Jardiance] Ernesto Godinez insulin glargine [Lantus Solostar U-100 Insulin] Ernesto Godinez insulin lispro [Humalog KwikPen Insulin] Ernesto Godinez lancets Ernesto Godinez metformin Ernesto Godinez pen needle, diabetic Ernesto Godinez Allergies Allergy/AdvReac Type Severity Reaction Status Date / Time ticagrelor (From Brilinta) Allergy Mild Verified 06/06/21 10:14 butorphanol (From STADOL) Allergy Unknown Verified 06/06/21 10:14 Discharge Plan Disposition Patient Disposition: Home, Self-Care Condition: Fair Discharge Order Discharge Orders: Discharge Order (Routine); Ordered 09/24/24 Ordered By: Ernesto Godinez Follow up Plan Follow up with: Rafat Hdz MD [Staff Physician] - Enter time for follow up (1-2 weeks, new onset DM, on insulin Please call for a follow up appt. ) Prescriptions/Medication Reconciliation: New Jardiance 10 mg Tablet 10 mg PO DAILY 30 Days Qty: 30 0RF insulin glargine [Lantus Solostar U-100 Insulin] 100 unit/mL (3 mL) Insulin Pen 50 unit SQ HS Qty: 15 0RF metformin 500 mg Tablet 500 mg PO BIDWMEAL 30 Days Qty: 60 0RF insulin lispro [Humalog KwikPen Insulin] 100 unit/mL insulin pen 10 unit SQ TID Qty: 15 0RF (DME) pen needle, diabetic 31 gauge x 1/4 needle See Rx Instructions .ROUTE .MEDSUPPLY Qty: 100 0RF Rx Instructions: With mealtime and nighttime insulin. (DME) blood-glucose meter [Accu-Chek Guide Glucose Meter] Misc See Rx Instructions .Route Qty: 1 0RF Rx Instructions: Check fingerstick blood sugar 3 times a day. Okay to substitute based on insurance preference (DME) lancets 32 gauge misc See Rx Instructions .Route Qty: 100 0RF Rx Instructions: Fingerstick glucose monitoring 3 times a day (DME) Accu-Chek Guide test strips Strip See Rx Instructions .Route Qty: 100 0RF Rx Instructions: Check 3 times a day Continued atorvastatin 40 mg tablet 40 mg PO HS Qty: 90 3RF lisinopril 20 mg tablet 20 mg PO DAILY Qty: 90 3RF Problem Reconciliation Problems Reviewed?: Yes Patient Discharge Instructions ACTIVITY: Continue current activity DIET: continue same diet Patient Instructions: How to Check Your Blood Glucose, How to Give a Subcutaneous Injection, Carbohydrate-Counting Diet, Diabetes and Alcohol: Caution When Mixing, DI for Diabetic Ketoacidosis, How to Use an Insulin Pen Print Language: Faroese Providers Primary Care Provider: Provider,Referral Admit Provider: Ernesto Godinez Attending Provider: Ernesto Godinez
--- NOTE | 2024-09-25 11:29 | SW/DCPLANNER ---
Spoke with patient on the phone. Patient stated that he is doing well. Patient stated that he hasnt yet called to schedule his follow up appointment with his primary care provider. Patient stated that he was able to chart picker his medicine and is a little confused on how much insulin he is supposed to be taking. I looked into the patients chart and told him what the dr ordered him to take. Patient stated that he doesnt have any more concerns or questions at this time. Arvin Anderson
--- NOTE | 2024-09-26 13:13 | DIET.NUTRFU ---
Followup voicemail today in hopes to review diabetic handouts included in discharge paperwork. Provided contact information for any further questions or to schedule outpatient appt.
--- NOTE | 2024-09-26 17:22 | PEERSUPPORT ---
Peer Support Note Patient Information Patient Information: DOS: 09/26/2024 ? Reason: ETOH/Stim UD ? Ps follow up via phone: 90 minutes Building Rapport: Pt stated he is still trying to figure out his sugar and how much insulin to give himself. He has been able to refrain from any meth use, although this time of month is when he usually buys some. He has drank two beers yesterday since being discharged from hospital. ? Ps provides active listening then shifting focus back to priority of his maria fernanda with conditions that correlate to alcohol and or meth use. ? Pt is understanding of the health risk involved with continued use, although he does not see himself stopping drinking two beers a day he does not want to use meth knowing what it is doing to his kidneys. ? Harm Reduction: Pt has not made a primary care appointment with Dr. Hdz at this time but plans to when he gets his check, so he can pay to have someone take him. He will then discuss medications options with doctor to manage his pain. ? Ps informed him of [facility] that may be available to him with scheduling 72 hours prior to appointment date and time. Pt is interested in this option. ? Ps and pt in length discussed outpatient options of treatment such as: [facility] and [facility], medication options including the services offered through programs that work. ? Discussed: -Intentions -Consequences -Mindset- Growth and fixed -Healthy Diet- Diabetic (Lifestyle Changes) ? Pt interested in local food [employer]. -Spirituality- ? Ps provided positive support for making changes and ability of patients self-awareness. ? Pt is agreeing to follow up phone calls and emails for recovery focused support.
[2024-09-27 14:18] LABS: Amphetamine Positive (.); Amphetamine (GC/MS) 634 ng/mL (Cutoff=500); Amphetamines Positive (.); Methamphetamine Positive (.); Methamphetamine (GC/MS) >3000 ng/mL (Cutoff=500)
== END 2024-09-24 13:56 | disposition home or self-care (01) | DRG 638 ==
LOC: ER 18:00 → ICU 20:22 → 2ND 09-22 12:25
PROVIDERS: Nurse Practitioner Family; Physician Assistant; Admitting Provider Internal Medicine Adolescent Medicine; Emergency Provider Emergency Medicine; Visit Provider Internal Medicine Adolescent Medicine
DX: E11.10 Type 2 diabetes mellitus with ketoacidosis without coma (principal); E87.0 Hyperosmolality and hypernatremia; N17.9 Acute kidney failure, unspecified; I50.22 Chronic systolic (congestive) heart failure; I42.9 Cardiomyopathy, unspecified; I25.5 Ischemic cardiomyopathy; I11.0 Hypertensive heart disease with heart failure; F17.210 Nicotine dependence, cigarettes, uncomplicated; F15.10 Other stimulant abuse, uncomplicated; E78.5 Hyperlipidemia, unspecified; E86.0 Dehydration; Z79.82 Long term (current) use of aspirin; Z89.611 Acquired absence of right leg above knee; Z95.0 Presence of cardiac pacemaker; Z59.41 Food insecurity; I25.10 Atherosclerotic heart disease of native coronary artery without angina pectoris
CPT/HCPCS: 36415; 71275; 74174; 80048; 80053; 80307; 80320; 80324; 80329; 81001; 82009; 82803; 82947; 82962; 83036; 83605; 83735; 83880; 84100; 84436; 84443; 84484; 85007; 85025; 85610; 85730; 86803; 87040; 87389; 93005; 93306; 99291; J1650; J3411; J7030; J7120; Q9967; S0028

== ENCOUNTER 2025-04-12 20:28 | Inpatient (IN) | payer MEDICARE, MEDICAID, SELFPAY ==
[2025-04-12] VITALS (9 sets, daily range): BP systolic 98–143; BP diastolic 67–116; PULSE 91–142; RESP 13–30; TEMP 36.8; O2SAT 95–100; BMI 27.1
--- OUTSIDE RECORDS SUMMARY | 2025-04-12 20:43 | XMS_ITS | Clinical Summary ---
Author Organization Healthcare Address [address] [place] [address] Care Team Providers Care Senior Product Integrity Engineer Name Role Phone Unavailable Primary Care Provider Unavailabl e Social History Tobacco Use Types Packs/Day Years Used Date Smoking Tobacco: Never Assessed Sex and Gender Information Value Date Recorded Sex Assigned at Not on file Legal Sex Male 8:42 PM EDT Gender Identity Not on file Sexual Orientation Not on file Plan of Treatment Not on file
--- NOTE | 2025-04-12 21:10 | HMH.EDGENADL ---
Discharge Plan Disposition Chief Complaint: Dental/Oral Discharge ED Provider: Peggy Orr General Adult HPI General Chief complaint: Dental/Oral Stated complaint: toothache,weight loss,no energy Time Seen by Provider: 04/12/25 21:09 History of Present Illness HPI narrative: Patient is a 54-year-old gentleman with a past medical history of diabetes, high blood pressure and previous AICD placement in 2020 who presented to the emergency department for dental pain. Patient states that he has been having dental pain for 1.5 weeks and that it has been causing him to not be able to eat due to pain. Patient states that he did meth 3 days ago to help with the pain. Patient states that he has lost weight due to the pain and inability to eat. On further chart review, patient reported that he has been having more shortness of breath over the last 3 days. Patient denied any chest pain. Patient denied any fevers. Patient denied any abdominal pain nausea vomiting or diarrhea. Patient denied any headache numbness or other associated symptoms. Related Data Previous Rx's ?Medication ?Instructions ?Recorded atorvastatin 40 mg tablet 40 mg PO HS #90 tabs 10/23/22 lisinopril 20 mg tablet 20 mg PO DAILY #90 tabs 10/23/22 blood sugar diagnostic (Accu-Chek #100 ea 09/24/24 Guide test strips) blood-glucose meter (Accu-Chek #1 ea 09/24/24 Guide Glucose Meter) empagliflozin 10 mg tablet 10 mg PO DAILY 30 days #30 tabs 09/24/24 (Jardiance) insulin glargine 100 unit/mL (3 50 unit (0.5 mL) SQ HS #15 mL 09/24/24 mL) subcutaneous pen (Lantus Solostar U-100 Insulin) insulin lispro 100 unit/mL 10 unit (0.1 mL) SQ TID #15 mL 09/24/24 subcutaneous pen (Humalog KwikPen (U-100) Insulin) lancets 32 gauge #100 ea 09/24/24 metformin 500 mg tablet 500 mg PO BIDWMEAL 30 days #60 tabs 09/24/24 pen needle, diabetic 31 gauge x #100 ea 09/24/24 1/4 Allergies Allergy/AdvReac Type Severity Reaction Status Date / Time ticagrelor (From Brilinta) Allergy Mild Verified 10/08/21 10:14 butorphanol (From STADOL) Allergy Unknown Verified 06/06/21 10:14 [facility] Disclaimer: The information contained in this section may have been updated after the patient was seen, as this information can be updated by other users. Medical History Sinus tachycardia CAD (coronary artery disease) Right above-knee amputee Social History Smoking Status: Current every day smoker tobacco type: cigarettes packs per day: 1 alcohol intake: current alcohol intake frequency: a few times a month substance use type: denies use current occupational status: disabled Travel in the last 8 weeks?: Inside the [place] household members: significant other housing: house caffeine: Yes Have you lived/traveled outside [place] in past 30 days?: No Contact w/someone who lives/traveled outside US past 30 days?: No Exposure to someone with infectious disease in past 14 days?: No Do you have a fever (greater than 100.4 F or 38 C)?: No Have you tested positive for COVID-19?: No Exposed to someone with COVID-19 in past 14 days?: No Do you have a sore throat?: No Do you have a cough?: No Do you have any weakness?: No Do you have any diarrhea?: No Are you experiencing any unusual bleeding?: No Do you have any muscle aches/pain?: No Do you have any abdominal pain?: No Are you experiencing loss of taste or smell?: No Other Medical History Have you received the Flu Vaccine for this season: No Have you received the Pneumonia Vaccine: No ROS Obtained: Yes All systems reviewed & no additional complaints except as documented and Yes Systems reviewed as appropriate & no additional complaints except as documented Physical Exam General General appearance: alert and in no apparent distress Head Head exam: atraumatic, normocephalic and normal inspection Eye Eye exam: Present normal appearance, PERRL and EOMI; Absent scleral icterus ENT ENT exam: Present normal exam and normal external ear exam Neck Neck exam: Present normal inspection and full ROM Chest Chest inspection: Present normal inspection and symmetric chest wall rise Respiratory Respiratory exam: Present normal lung sounds bilaterally; Absent respiratory distress or wheezes Cardiovascular Cardiovascular exam: Present tachycardia, irregular rhythm and normal heart sounds Abdominal Exam Abdominal exam: Present soft and distention; Absent tenderness, guarding or rebound Extremities Exam Extremities exam: Present normal inspection, full ROM and other (RLE amputation) Back Exam Back exam: Present normal inspection and full ROM Neurological Exam Neurological exam: Present alert and oriented X3 Psychiatric Psychiatric exam: Present normal affect and normal mood Skin Skin exam: Present warm and dry Medical Decision Making Medical Records Medical records reviewed: Yes I reviewed the patient's medical records. Screening: Per USPSTF and CDC recommendations, given the prevalence of disease in our region, it is our hospital?s policy to screen for HIV and viral Hepatitis for all patients aged 18 and over and those with ongoing risk factors. Yosef Inquiry Pt receiving controlled substance: No Vital Signs: 04/12/25 21:01 04/12/25 21:31 04/12/25 22:00 Temperature 98.2 F Temperature Source Temporal Artery Scan Pulse Rate 142 H 140 H Pulse Rate [Right] 91 H Respiratory Rate 20 24 Blood Pressure 123/81 141/100 H Blood Pressure [Right Arm] 130/92 H Blood Pressure Mean [Right Arm] 104 02 Sat by Pulse Oximetry 96 98 100 04/12/25 22:30 04/12/25 22:58 04/12/25 23:00 Temperature Temperature Source Pulse Rate 126 H 127 H 137 H Pulse Rate [Right] Respiratory Rate 23 30 H 19 Blood Pressure 121/98 H 137/116 H 143/104 H Blood Pressure [Right Arm] Blood Pressure Mean [Right Arm] 02 Sat by Pulse Oximetry 95 96 96 04/12/25 23:11 04/12/25 23:30 Temperature Temperature Source Pulse Rate 120 H 114 H Pulse Rate [Right] Respiratory Rate 26 H 13 Blood Pressure 113/83 117/78 Blood Pressure [Right Arm] Blood Pressure Mean [Right Arm] 02 Sat by Pulse Oximetry Lab Data Lab results reviewed: Yes I reviewed the patient's lab results. Lab Results 04/12/25 21:45: WBC 14.2 H, RBC 6.28 H, Hgb 17.4, Hct 54.0 H, MCV 86.0, MCH 27.7, MCHC 32.2, RDW 16.6, Plt Count 224, MPV 12.5 H, Neut % (Auto) 77.9, Lymph % (Auto) 11.4, Sutton % (Auto) 9.7 H, Eos % (Auto) 0.0 L, Baso % (Auto) 0.4, Neut # (Auto) 11.0 H, Lymph # (Auto) 1.6, Sutton # (Auto) 1.4 H, Eos # (Auto) 0.0, Baso # (Auto) 0.1, D-Dimer 3.61 H, Sodium 126 L, Potassium 6.0 H, Chloride 90 L, Carbon Dioxide 22, Anion Gap 20.0 H, BUN 28 H, Creatinine 1.10, Estimated Creat Clear 97, Estimated GFR 69, Est GFR ( Amer) 84, Glucose 889 H*, Calcium 10.1, Phosphorus 6.1 H, Magnesium 2.3, Total Bilirubin 2.6 H, AST > 1500 H*, ALT 1248 H*, Alkaline Phosphatase 1028 H, Troponin I 1.98 H, NT-Pro-B Natriuret Pep 61427 H, Total Protein 7.1, Albumin 4.4, Globulin 2.7, Albumin/Globulin Ratio 1.6, Salicylates < 1.0 L, Acetaminophen < 10 L 04/12/25 22:57: VBG pH 7.31, VBG pCO2 41.4, VBG pO2 57.6 H, VBG HCO3 20.1 L, VBG Total CO2 21.4 L, VBG O2 Saturation 85.2 H, VBG Base Excess -6.2 L, VBG Lactic Acid 4.5 H 04/12/25 21:45 04/12/25 21:45 Orders (Tests/Meds): ED MEDICATIONS Generic Name Dose Route Start Last Admin Trade Name Freq PRN Reason Stop Dose Admin Acetaminophen 650 mg 04/13/25 00:05 Acetaminophen 325mg Tab PO 05/13/25 00:04 Q6HP PRN Fever or Mild Pain (1-3) Albuterol/Ipratropium 9 ml 04/12/25 23:07 04/12/25 23:21 Ipratropium/Albuterol 3 Ml Neb IH 04/12/25 23:08 9 ml ONCE ONE Administration Enoxaparin Sodium 90 mg 04/12/25 22:45 04/12/25 23:00 Enoxaparin 100mg/Ml Syringe 1 mg/kg (90 mg) 05/12/25 22:44 90 mg SUBCUT Administration Q12H [facility] Insulin Human Regular 100 unit 101 mls @ 9.163 mls/hr 04/12/25 23:07 04/12/25 23:54 / Sodium Chloride IV 05/12/25 23:06 0.1 units/kg/hr .Q11H2M FRANCHESKA 9.16 mls/hr Protocol Administration 0.1 UNITS/KG/HR Calcium Gluconate/Sodium Chloride 2 gm in 100 mls @ 50 mls/hr 04/12/25 23:07 04/12/25 23:33 Calcium Gluconate 2,000mg/100ml Nacl Premix IV 04/13/25 01:06 50 mls/hr ONCE ONE Administration Insulin Glargine 20 unit 04/13/25 00:05 Insulin Glargine 100 Units/Ml 10ml Vial SUBCUT 04/13/25 00:06 HS STA Insulin Glargine 20 unit 04/13/25 21:00 Insulin Glargine 100 Units/Ml 10ml Vial SUBCUT 05/13/25 20:59 HS FRANCHESKA Iopamidol 80 ml 04/12/25 23:53 04/12/25 23:54 Iopamidol-370 (76%);100ml Bottle IV 04/12/25 23:54 80 ml ONCE ONE Administration Nicotine 21 mg 04/13/25 00:05 Nicotine 21mg/24hr Patch TD 05/13/25 00:04 DAILYP PRN Nicotine Cravings Ondansetron HCl 4 mg 04/13/25 00:05 Ondansetron 4mg/2ml Vial IV 05/13/25 00:04 Q6HP PRN Nausea Sodium Chloride 50 ml 04/12/25 23:53 04/12/25 23:54 0.9 % Sodium Chloride 50 Ml Vial IV 04/12/25 23:54 50 ml ONCE ONE Administration Sodium Chloride 10 ml 04/12/25 23:53 04/12/25 23:54 Sodium Chloride 0.9% 10ml Syr (Rad Only) IV 04/12/25 23:54 10 ml ONCE ONE Administration Sodium Chloride 10 ml 04/13/25 00:00 Sodium Chloride 0.9% 10ml Flush Syringe IV 05/13/25 00:00 NEEDED PRN Maintain IV Site Discontinued Medications Generic Name Dose Route Start Last Admin Trade Name Freq PRN Reason Stop Dose Admin Amoxicillin/Clavulanate Potassium 1 each 04/12/25 21:47 04/12/25 21:51 Amoxicillin/Clavulanate Potassium 875/125mg Tablet PO 04/12/25 21:48 1 each ONCE ONE Administration Aspirin 325 mg 04/12/25 22:26 04/12/25 22:28 Aspirin 325mg Tablet PO 04/12/25 22:27 325 mg ONCE ONE Administration Magnesium Sulfate 2 gm in 50 mls @ 50 mls/hr 04/12/25 22:00 04/12/25 22:03 Magnesium Sulfate 2gm/50ml Premix IV 04/12/25 22:59 50 mls/hr ONCE ONE Administration Sodium Chloride 1,000 mls @ 999 mls/hr 04/12/25 22:00 04/12/25 23:10 Sod Chlor 0.9% 1000ml Bag IV 04/12/25 23:00 Not Given .Q1H1M ONE Metoprolol Tartrate 5 mg 04/12/25 22:41 04/12/25 23:00 Metoprolol Tartrate 5mg/5ml Vial IV 04/12/25 22:42 5 mg ONCE ONE Administration ORDERS Category Date Time Status CXR 2 view (NOT portable) [XR chest 2V] Stat Exams 04/12/25 21:28 Completed B-Hydroxybutyrate Stat Lab 04/12/25 21:15 Received BNP [NT Pro Brain Natriuretic Pep.] Stat Lab 04/12/25 21:45 Completed CBC w/Auto Diff [Complete Blood Count Auto Diff] Stat Lab 04/12/25 21:45 Completed CMP [Comprehensive Metabolic Panel] Stat Lab 04/12/25 21:45 Completed D-Dimer Stat Lab 04/12/25 21:45 Completed Magnesium Stat Lab 04/12/25 21:45 Completed Osmolality Stat Lab 04/12/25 21:15 Received PHOS [Phosphorous] Stat Lab 04/12/25 21:45 Completed Trop I [Troponin I] Stat Lab 04/12/25 21:45 Completed Troponin I Q3H Lab 04/13/25 00:30 Ordered Troponin I Q3H Lab 04/13/25 03:30 Ordered VBG [Venous Blood Gas] Stat RT 04/12/25 22:57 Completed Medical Decision Narrative: Patient is a 54-year-old gentleman with a past medical history of diabetes, high blood pressure, who presented to the emergency department initially with dental pain but had reported some weight loss, and shortness of breath for the last 3 days. On arrival, patient was tachycardic in the rates 120s to still 140 appeared to be irregular rhythm but blood pressure was stable. Vital signs were otherwise unremarkable. Differential included but not limited to: New onset A-fib, electrolyte abnormalities, ACS/KS, pulmonary embolism, pneumonia, tooth infection, amongst others. Initial EKG was obtained and showed a flutter with a rate of [address] or T wave changes concerning for ischemia however poor baseline. Joaquim EKG was obtained that showed a flutter rate of 126 concerning for STEMI with ST elevations in lead III, aVF no reciprocal changes. At this time, no labs had resulted. I had an interactive discussion with Dr. Dc given my concern for STEMI on EKG. [place] that patient likely was having an old STEMI given that patient was not having any chest pain and patient was complaining of shortness of breath for the last 3 days. The patient had Q waves on his EKG. During our discussion patient's labs started to result and patient had significant abnormalities. Patient had a BNP of 12,000, initial troponin of 1.95. Patient's blood sugar was 889. Patient had a gap of 20. Patient's LFTs were significantly elevated including AST greater than 1500, ALT in the 1200s. Bilirubin 2.6. Patient had a normal creatinine but did have a leukocytosis of 14. Patient had a potassium of 6. After continued discussion with Dr. Dc initial discussion to give amiodarone however given that unclear the length of time patient has been in A-fib it was decided to not do amiodarone into try IV metoprolol for rate control at this time. Given patient significantly elevated blood sugar with no acidosis, patient is not in DKA. Patient significantly elevated BNP I did not want to give IV fluids given patient likely with very poor EF. Patient was started on insulin drip at this time. Patient was given calcium gluconate and DuoNebs for continued hyper-K treatment. Patient's D-dimer was 3.[address] CT abdomen pelvis was obtained. Chest x-ray was reviewed and interpreted by myself and showed no significant volume overload. Patient was given 1 dose of IV metoprolol and patient had improvement in his heart rate into the 110's. Given concern for shock liver, STEMI, hyperglycemia with significant electrolyte abnormalities, patient was ultimately admitted to the ICU for further management workup. Critical Care Critical Care Time Critical Care Time: Yes Attestation: On 04/12/25, the high probability of a clinically significant, sudden or life threatening deterioration of the following system(s) required my full and direct attention, intervention and personal management. The time I documented below is in addition to time spent performing reported procedures but includes the following listed in this critical care notation. Total Time Total Critical Care Time: 30
--- NOTE | 2025-04-12 21:28 | XR_ITS ---
PROCEDURE INFORMATION: Exam: XR Chest Exam date and time: 04/12/2025 9:53 PM Age: 54 years old Clinical indication: Shortness of breath TECHNIQUE: Imaging protocol: Radiologic exam of the chest. Views: 2 views. COMPARISON: CT ANGIO CHEST 09/21/2024 7:00 PM FINDINGS: Tubes, catheters and devices: Dual-chamber pacer defibrillator Lungs: No definite acute airspace pattern infiltrates. Pleural spaces: Trace pleural effusions Heart/Mediastinum: Unremarkable. No cardiomegaly. Bones/joints: Unremarkable. IMPRESSION: 1. Trace bilateral pleural effusions 2. Otherwise negative exam.
[2025-04-12] MEDS: AMOXICILLIN/CLAVULANATE POTASSIUM 875/125MG TABLET 1 EACH PO (21:51)
--- NOTE | 2025-04-12 21:55 | ECG_ITS ---
APPROVED REPORT Exam: Resting ECG HR:146 bpm ECG Measurements Heart Rate 146 AXES QRSd 125 QRS 212 QT 290 T 42 QTc 374 Conclusion ATRIAL FLUTTER/TACHYCARDIA WITH RAPID VENTRICULAR RESPONSE POSSIBLE RIGHT VENTRICULAR HYPERTROPHY [SOME/ALL OF: PROMINENT R IN V1, LATE TRANSITION, RAD, TRUDY, SSS] ANTEROLATERAL MYOCARDIAL INFARCTION , OF INDETERMINATE AGE [40+ ms Q WAVE IN I/aVL/V3-V6] ABNORMAL ECG UNCONFIRMED REPORT Electronically signed by : SARABJIT DAVIS, 04/13/2025 00:35:13
[2025-04-12] MEDS: MAGNESIUM SULFATE IN WATER 2 GM/50 ML PIGGYBACK IV (22:03)
[2025-04-12 22:20] LABS: Albumin Level 4.4 g/dl (3.5-5.0); Albumin/Globulin Ratio 1.6 (1.1-1.8); Alkaline Phosphatase 1028 U/L (38-126); Anion Gap 20.0 mEq/L (5-15); Bilirubin,Total 2.6 mg/dl (0.2-1.3); Blood Urea Nitrogen 28 mg/dl (9-20); Calcium 10.1 mg/dl (8.4-10.2); Carbon Dioxide 22 mmol/L (22.0-30.0); Chloride 90 mmol/L (98-107); Creatinine Clearance Estimated 97 mL/min (50-200); Creatinine,Serum 1.10 mg/dl (0.66-1.25); Estimated Glomerular Filt Rate 69 ml/min (>60); GFR (African American) 84 ML/MIN (>60); Globulin 2.7 g/dL (1.3-3.2); Magnesium 2.3 mg/dl (1.6-2.3); Sodium 126 mmol/L (136-145); Total Protein,Serum 7.1 g/dl (6.3-8.2)
--- NOTE | 2025-04-12 22:21 | ECG_ITS ---
APPROVED REPORT Exam: Resting ECG HR:126 bpm ECG Measurements Heart Rate 126 AXES QRSd 104 QRS 186 QT 308 T 0 QTc 383 Conclusion ATRIAL FLUTTER/TACHYCARDIA WITH RAPID VENTRICULAR RESPONSE POSSIBLE RIGHT VENTRICULAR HYPERTROPHY [SOME/ALL OF: PROMINENT R IN V1, LATE TRANSITION, RAD, TRUDY, SSS] POSSIBLE ANTERIOR MYOCARDIAL INFARCTION , PROBABLY OLD [30 ms Q WAVE IN V3/V4, OR R < 0.2 mV IN V4] MARKED ST ELEVATION, CONSIDER INFERIOR INJURY [MARKED ST ELEVATION W/O NORMALLY INFLECTED T-WAVE IN II/aVF] ACUTE WI UNCONFIRMED REPORT Electronically signed by : SARABJIT DAVIS, 04/13/2025 00:35:04
[2025-04-12 22:24] LABS: Hematocrit 54.0 % (42.0-52.0); Hemoglobin 17.4 g/dL (14.1-18.0); Immature Granulocytes % 0.6 %; Mean Corpuscular HGB Conc 32.2 g/dL (31.8-35.4); Mean Corpuscular Hemoglobin 27.7 pg (27.0-31.2); Mean Corpuscular Volume 86.0 fl (80-94); Nucleated Red Blood Cells % 0 %; Platelet Count 224 K/mm3 (142-424); Red Blood Count 6.28 M/mm3 (4.60-6.20); Red Cell Distribution Width-SD 47.7 fL; White Blood Count 14.2 K/mm3 (4.8-10.8)
[2025-04-12 22:25] LABS: D-Dimer 3.61 ug/mL (0.0-0.5)
[2025-04-12] MEDS: ASPIRIN 325MG TABLET 325 MG PO (22:28)
[2025-04-12 22:30] LABS: NT Pro Brain Natriuretic Pep. 12200 pg/mL (0-125)
[2025-04-12 22:33] LABS: Alanine Aminotransferase 1248 U/L (12-78); Aspartate Amino Transferase > 1500 U/L (17-59)
[2025-04-12 22:36] LABS: Glucose 889 mg/dl (74-100)
[2025-04-12 22:37] LABS: Potassium 6.0 mmoL/L (3.5-5.1)
[2025-04-12 22:38] LABS: Troponin I 1.98 ng/ml (0.00-0.034)
--- NOTE | 2025-04-12 22:39 | PC.NURSE ---
critical called from MD sudheer notified
[2025-04-12 22:57] LABS: Phosphorous 6.1 mg/dl (2.5-4.5)
[2025-04-12] MEDS: METOPROLOL TARTRATE 5MG/5ML VIAL 5 MG IV (23:00)
[2025-04-12 23:07] LABS: VBG HCO3 20.1 mmol/L (23-30); VBG PCO2 41.4 mmol/L (35-51); VBG PH 7.31 mmol/L (7.31-7.41); VBG PO2 57.6 mmol/L (28-40)
[2025-04-12 23:09] LABS: Lactate Venous 4.5 mmol/L (0.4-2.0)
--- NOTE | 2025-04-12 23:09 | CT_ITS ---
PROCEDURE INFORMATION: Exam: CTA Chest With Contrast Exam date and time: 04/12/2025 11:43 PM Age: 54 years old Clinical indication: Shortness of breath TECHNIQUE: Imaging protocol: Computed tomographic angiography of the chest with contrast. Exam focused on the arteries. 3D rendering (Not supervised by radiologist): MIP and/or 3D reconstructed images were created by the technologist. Radiation optimization: All CT scans at this facility use at least one of these dose optimization techniques: automated exposure control; mA and/or kV adjustment per patient size (includes targeted exams where dose is matched to clinical indication); or iterative reconstruction. Contrast material: ISOVUE; Contrast volume: 80 ml; Contrast route: INTRAVENOUS (IV); COMPARISON: CT ANGIO CHEST 09/21/2024 7:00 PM FINDINGS: Tubes, catheters and devices: Left subclavian approach dual-chamber pacer device Pulmonary arteries: Normal. No pulmonary emboli. Aorta: Unremarkable. No aortic aneurysm. No aortic dissection. Veins: Reflux of full-strength contrast into the intrahepatic IVC Lungs: Multiple calcified granulomas at the bilateral upper lobes. Partial compressive atelectasis at the right lower lobe Pleural spaces: Large right pleural effusion Heart: Mild cardiomegaly Coronary arteries: Calcified coronary arteries Lymph nodes: Unremarkable. No enlarged lymph nodes. Spleen: Calcified granulomas in the spleen Intraperitoneal space: Small ascites in the upper abdomen Bones/joints: Unremarkable. No acute fracture. Soft tissues: Unremarkable. Other findings: Breathing motion artifacts IMPRESSION: 1. Large right pleural effusion 2. Cardiomegaly 3. Old granulomatous disease
--- NOTE | 2025-04-12 23:09 | CT_ITS ---
PROCEDURE INFORMATION: Exam: CT Abdomen And Pelvis With Contrast Exam date and time: 04/12/2025 11:43 PM Age: 54 years old Clinical indication: Other: Shock liver TECHNIQUE: Imaging protocol: Computed tomography of the abdomen and pelvis with contrast. 3D rendering (Not supervised by radiologist): MIP and/or 3D reconstructed images were created by the technologist. Radiation optimization: All CT scans at this facility use at least one of these dose optimization techniques: automated exposure control; mA and/or kV adjustment per patient size (includes targeted exams where dose is matched to clinical indication); or iterative reconstruction. Contrast material: ISOVUE; Contrast volume: 80 ml; Contrast route: IV; COMPARISON: CT ANGIO ABDOMEN PELVIS 09/21/2024 7:00 PM FINDINGS: Lungs: low-density cyst at the periphery of the right lower lobe Liver: Normal. No mass. Gallbladder and biliary ducts: Normal. No calcified stones. No ductal dilation. Pancreas: Normal. No ductal dilation. Spleen: Calcified granulomas are present in the spleen Adrenal glands: Normal. No mass. Kidneys and ureters: Normal. No hydronephrosis. Stomach and bowel: Mild diffuse thickening of the jejunal loops, but no abnormal dilation Appendix: No evidence of appendicitis. 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 Severe diffuse stenosis of the right external iliac artery right profunda femoris is patent, but there is chronic total occlusion right SFA. 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 No enlarged lymph nodes. Urinary bladder: Unremarkable as visualized. Reproductive: Unremarkable as visualized. Bones/joints: Unremarkable. No acute fracture. Soft tissues: Mild anasarca IMPRESSION: 1. Small ascites and large right pleural effusion. Could be related to cirrhosis versus congestive heart failure 2. Mild diffuse thickening of the jejunum may indicate enteritis without bowel obstruction 3. 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 Severe diffuse stenosis right external iliac artery 4. Chronic total occlusion right SFA origin 5. 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
[2025-04-12] MEDS: IPRATROPIUM/ALBUTEROL 3 ML NEB 9 ML IH (23:21)
[2025-04-12] MEDS: CALCIUM GLUC IN NACL, ISO-OSM 2 GM/100 ML BAG IV (23:33)
[2025-04-12 23:37] LABS: Acetaminophen < 10 ug/ml (10-30); Salicylate < 1.0 mg/dL (2.0-20.0)
[2025-04-12] MEDS: IOPAMIDOL-370 (76%);100ML BOTTLE 80 ML IV (23:54)
[2025-04-12] MEDS: SODIUM CHLORIDE 0.9% 10ML SYR (RAD ONLY) 10 ML IV (23:54)
[2025-04-12] MEDS: INSULIN REGULAR, HUMAN 100 UNIT in 0.9 % SODIUM CHLORIDE 100 ML 9.16 UNIT IV (23:54)
[2025-04-12] MEDS: 0.9 % SODIUM CHLORIDE 50 ML VIAL IV (23:54)
[2025-04-13] VITALS (17 sets, daily range): BP systolic 102–147; BP diastolic 66–107; PULSE 103–141; RESP 16–25; TEMP 36.3–36.7; O2SAT 86–99; BMI 21.8; BMI 21.4
--- NOTE | 2025-04-13 | CA_ITS ---
APPROVED REPORT EXAM: Comprehensive 2D, Doppler, and color-flow Echocardiogram [employer] Journeyman: Judi Gordon, RCS, RVS Ht: 6 ft 0 in Wt: 200lbs BSA: 2.13 BP: 117/78 mmHg Indications: CM, STEMI, DM, Smoker, Echo Enhancing Agent Indication: Rule out thrombus Agent(s) / Amount(s) Used: Agitated Saline, Definity 2 cc 2D Dimensions LVDd 5.15 cm LVEF (Visual) 8.80 % LVDs 4.95 cm LA Volume 63.20 mL Left Atrium 4.35 cm LA Volume Index 29.00 mL/m2 (M/F) 16-34 M-Mode Dimensions RVDd 3.13 cm (0.9-2.6) LA Diam 4.00 cm (1.9-4.0) LVDd 4.70 cm (3.5-5.7) LVDs 4.18 cm (3.5-5.7) IVSd 1.13 cm (0.6-1.1) PWd 1.13 cm (0.6-1.1) EF (Teich) 24.10% EPSs 1.86 cm FS 11.10% EDV (Teich) 102.40 mL TAPSE 1.97 (<1.7) ESV (Teich) 77.70 mL LV Diastology E Decel Time 113 (160-240 msec) E/A Ratio 2.85 Aortic Valve DIMITRY Index 0.77 cm2/m2 AoV Peak Italo. 63.0 (50-130 cm/s) AO Peak GR. 1.60 mmHg AO Mean GR. 0.80 (<5 mmHg) AO VTI 6.6 (18-25 cm) DIMITRY (VTI) 1.67 (2.5-4.5 cm2) Mitral Valve MV A Velocity 37.0 (40-130 cm/s) E/A Ratio 2.85 Pulmonary Valve PV Peak Velocity 33.0 (50-150 cm/s) Tricuspid Valve TR P. Velocity 251.00 cm/s RAP Estimate 10.00 mmHg RVSP 35.20 mmHg Left Ventricle The left ventricle is normal size. Left ventricular systolic function is severely reduced. There is normal left ventricular wall thickness. There is severe global hypokinesis present. The distal and apical LV victor are akinetic. The septum is asynchronous. The left ventricular diastolic function is indeterminate. No left ventricle thrombus noted on this study. LVEF is 10% Right Ventricle The right ventricle is mildly dilated. The right ventricular systolic function is severely reduced. Atria The left atrium is mildly dilated. The right atrium is mildly dilated. There is no color Doppler evidence of interatrial shunt. Aortic Valve The aortic valve opens well. There is no hemodynamically significant aortic valvular stenosis. Trace aortic regurgitation is present. Mitral Valve The mitral valve is normal in structure. No evidence of mitral valve stenosis. Mild mitral regurgitation is present. Tricuspid Valve The tricuspid valve leaflets are thin and pliable. Moderate tricuspid regurgitation. RVSP 30-35 mmHg. Pulmonic Valve The pulmonary valve is grossly normal in structure. Trace pulmonic valve regurgitation is present. Great Vessels The aortic root is normal in size. IVC is normal in size and collapses >50% with inspiration. Pericardium There is no pericardial effusion. Other Information Study Quality: Fair Conclusion Severe reduction in LV systolic function (LVEF 10%). Distal and apical victor are akinetic. The septum is asynchronous. No evidence of apical LV thrombus. Mild RV dilation with severe reduction in RV function. Mild biatrial dilation. Moderate TR. Mild MR. Electronically signed by : Charisma Reynoso MD 04/13/2025 12:28:01
--- NOTE | 2025-04-13 00:25 | PC.NURSE ---
report called to MARCO ANTONIO Panda
--- NOTE | 2025-04-13 00:59 | P.HP_ITS ---
<Statement entered by Darshan Flower MD - 04/17/25 11:44> Personally evaluated patient and agree with the plan of care as outlined by the BUILDING RENTAL SUPERINTENDENT. History of Present Illness *Admission Date: 04/13/25 *Reason for visit:: Mouth pain *History of present illness: This is a 54-year-old male who is well-known to our service line and has a past medical history significant for HFrEF currently with AICD placement, diabetes, ischemic cardiomyopathy, hypertension, hyperlipidemia, methamphetamine usage, GERD, anxiety, and coronary artery disease who presents with a chief complaint of dental pain. Due to patient's symptoms, he presented to the emergency room for evaluation. While in the emergency room, patient's blood glucose was documented greater than 800, EKG findings was consistent with a subacute inferior infarct, and elevated white blood cell count. This case was discussed with cardiology who did not believe that patient warranted emergent coronary artery intervention; however, he believed that patient's hyperglycemic hyperosmolar state should be negotiated and his A-flutter was 2 1 ratio should be minimized. He recommended patient to receive a one-time dose of metoprolol 5 mg and was against giving patient any significant amount of crystalloids. Due to this, hospital medicine was contacted for further management During my evaluation of the patient, patient reports that he has not had any of his medications he was discharged home back in August since 6 days after discharge. He reports taking or being compliant with his medication for those 6 days and since then he has not taken any of his medications. Patient reports a 3-day history of shortness of breath while at rest. Moreover, patient states that he recently lost a filling to his third molar and since then he has been experiencing dental pain. He reports that cold water does not exacerbate his symptomology; however, hot water does. He reports no drainage or fluid collection near the area of concern. He voices having decreased p.o. intake and is only able to tolerate Jell-O and pudding. Patient has reported no chest pain; moreover, he denied any lightheadedness, dizziness, fever, chills, rigors, PND, orthopnea, nausea, or diarrhea. CTA of the chest revealed a large right pleural effusion, cardiomegaly, and old granulomatous disease. 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 Additional pertinent vitals obtained include a white blood cell count of 14.2, red blood cell count of 6.28, hematocrit of 54, D-dimer 3.61, venous lactic acid of 4.5, bicarb of 20.1, sodium 126, potassium of 6, chloride of 90, BUN of 28, blood glucose of 889, phosphorus 6.1, total bilirubin 2.6, AST of greater than 1500, ALT of 1248, alkaline phosphate of 1028, troponin of 1.98, and BNP of 12,200. It is worth mentioning that patient does report recent methamphetamine usage. [facility] Disclaimer: The information contained in this section may have been updated after the patient was seen, as this information can be updated by other users. Medical History (Updated 04/13/25 @ 01:57 by Glenys Carmona RN) Diabetes mellitus, type 2 Sinus tachycardia CAD (coronary artery disease) Right above-knee amputee Social History (Updated 04/13/25 @ 01:57 by Glenys Carmona RN) Smoking Status: Current every day smoker tobacco type: cigarettes packs per day: 1 alcohol intake: current alcohol intake frequency: a few times a month substance use type: denies use current occupational status: disabled Travel in the last 8 weeks?: None household members: significant other housing: house caffeine: Yes Have you lived/traveled outside [place] in past 30 days?: No Contact w/someone who lives/traveled outside [place] past 30 days?: No Exposure to someone with infectious disease in past 14 days?: No Do you have a fever (greater than 100.4 F or 38 C)?: No Have you tested positive for COVID-19?: No Exposed to someone with COVID-19 in past 14 days?: No Do you have a sore throat?: No Do you have a cough?: No Do you have any weakness?: No Are you experiencing any nausea/vomitting?: No Do you have any diarrhea?: No Are you experiencing any unusual bleeding?: No Do you have any muscle aches/pain?: No Do you have any abdominal pain?: No Are you experiencing loss of taste or smell?: No Other Medical History Have you received the Flu Vaccine for this season: No Have you received the Pneumonia Vaccine: No Review of Systems Review of Systems Review of systems:: pertinent systems reviewed and negative unless documented below Constitutional Constitutional: Reports anorexia, Reports fatigue, Reports poor appetite, Reports lethargy and Reports malaise Eyes Eyes: Reports system reviewed and no additional complaints, except as documented ENT Ears, Nose, Mouth, and Throat: Reports system reviewed and no additional complaints, except as documented *Cardiovascular Cardiovascular: Reports dyspnea *Respiratory Respiratory: Reports dyspnea *Gastrointestinal Gastrointestinal: Reports nausea *Genitourinary Genitourinary: Reports system reviewed and no additional complaints, except as documented *Musculoskeletal Musculoskeletal: Reports other Comments: Right [id number] amputation Integumentary/Breasts Skin/Breast: Reports system reviewed and no additional complaints, except as documented *Neurologic Neurologic: Reports system reviewed and no additional complaints, except as documented Psychiatric Psychiatric: Reports system reviewed and no additional complaints, except as documented Endocrine Endocrine: Reports fatigue Hematologic/Lymphatic Hematologic/Lymphatic: Reports system reviewed and no additional complaints, except as documented Allergic/Immunologic Allergic/Immunologic: Reports system reviewed and no additional complaints, except as documented Meds Home Medications and Allergies Home Medications ?Medication ?Instructions ?Recorded ?Confirmed ?Type atorvastatin 40 mg tablet 40 mg PO HS #90 tabs 3 09/22/24 Rx lisinopril 20 mg tablet 20 mg PO DAILY #90 tabs 10/0109/22/24 Rx blood sugar diagnostic (Accu-Chek #100 ea 09/24/24 Rx Guide test strips) blood-glucose meter (Accu-Chek #1 ea 09/24/24 Rx Guide Glucose Meter) empagliflozin 10 mg tablet 10 mg PO DAILY 30 days #30 tabs 09/24/24 Rx (Jardiance) insulin glargine 100 unit/mL (3 50 unit (0.5 mL) SQ HS #15 mL 09/24/24 Rx mL) subcutaneous pen (Lantus Solostar U-100 Insulin) insulin lispro 100 unit/mL 10 unit (0.1 mL) SQ TID #15 mL 09/24/24 Rx subcutaneous pen (Humalog KwikPen (U-100) Insulin) lancets 32 gauge #100 ea 09/24/24 Rx metformin 500 mg tablet 500 mg PO BIDWMEAL 30 days # 60 tabs 09/24/24 Rx pen needle, diabetic 31 gauge x #100 ea 09/24/24 Rx 1/4 New Prescriptions to Start Prescriptions: Allergies Allergy/AdvReac Type Severity Reaction Status Date / Time ticagrelor (From Brilinta) Allergy Mild Verified 06/06/21 10:14 butorphanol (From STADOL) Allergy Unknown Verified 06/06/21 10:14 Exam Data for Last 24 hours Vital signs and Labs for Last 24 Hours: Temp Pulse Resp BP Pulse Ox 98.2 F 114 H 13 117/78 96 04/12/25 21:01 04/12/25 23:30 04/12/25 23:30 04/12/25 23:30 04/12/25 23:00 Laboratory Results - last 24 hr 04/12/25 21:45: WBC 14.2 H, RBC 6.28 H, Hgb 17.4, Hct 54.0 H, MCV 86.0, MCH 27.7, MCHC 32.2, RDW 16.6, Plt Count 224, MPV 12.5 H, Neut % (Auto) 77.9, Lymph % (Auto) 11.4, [place] % (Auto) 9.7 H, Eos % (Auto) 0.0 L, Baso % (Auto) 0.4, Neut # (Auto) 11.0 H, Lymph # (Auto) 1.6, [place] # (Auto) 1.4 H, Eos # (Auto) 0.0, Baso # (Auto) 0.1, D-Dimer 3.61 H, Sodium 126 L, Potassium 6.0 H, Chloride 90 L, Carbon Dioxide 22, Anion Gap 20.0 H, BUN 28 H, Creatinine 1.10, Estimated Creat Clear 97, Estimated GFR 69, Est GFR ( Amer) 84, Glucose 889 H*, Calcium 10.1, Phosphorus 6.1 H, Magnesium 2.3, Total Bilirubin 2.6 H, AST > 1500 H*, ALT 1248 H*, Alkaline Phosphatase 1028 H, Troponin I 1.98 H, NT-Pro-B Natriuret Pep 89981 H, Total Protein 7.1, Albumin 4.4, Globulin 2.7, Albumin/Globulin Ratio 1.6, Salicylates < 1.0 L, Acetaminophen < 10 L 04/12/25 22:57: VBG pH 7.31, VBG pCO2 41.4, VBG pO2 57.6 H, VBG HCO3 20.1 L, VBG Total CO2 21.4 L, VBG O2 Saturation 85.2 H, VBG Base Excess -6.2 L, VBG Lactic Acid 4.5 H I & O for Last 24 hours: Intake & Output 04/10/25 04/11/25 04/12/25 04/13/25 23:59 23:59 23:59 23:59 Weight 90.718 kg Constitutional Constitutional: thin and chronically ill appearing *Routine HEENT Exam Head: Present normocephalic and atraumatic Eye: Present EOMI and PERRL ENT: Present mucous membranes moist *Routine Neck Exam Neck: Present supple, full ROM and trachea midline *Routine Respiratory Exam Respiratory: Present crackles, normal respiratory effort, able to speak in com plete sentences and symmetric chest movement *Routine Cardiovascular Exam Cardiovascular: Present tachycardia, irregular rhythm and irregularly irregular *Routine Abdominal Exam Abdominal: Present soft and normoactive bowel sounds *Routine Rectal Exam Rectal:: deferred *Routine Genitalia Exam Genitalia:: deferred *Routine Extremities Exam Extremities: Present full ROM Comments: Right znkbj-miz-nimo amputation is noted; patient has diminished pulses +1 to left lower extremity; capillary refills greater than 3 seconds Routine Back/Spine/Pelvis Exam Back/Spine: Present full ROM *Routine Skin Exam Skin: Present dry and warm *Routine Neurological Exam Neurological: Present alert, oriented X3 and CN II-XII intact Routine Psychiatric Exam Psychiatric: Present normal affect, normal thought process, cooperative, good insight and good judgment H&P: Result Impressions 54-year-old male presents with a 3-day history of shortness of breath found to have a subacute inferior wall NM. Moreover, patient has been noncompliant with an tight diabetic regiment and has not taken his medications since August currently, without any findings consistent with DKA but is more than likely hyperosmolar, hyperglycemic, nonketotic state Assessment and Plan *Assessment and plan (1) Atrial flutter: Status: Acute Qualifiers: Atrial flutter type: unspecified Qualified Code(s): I48.92 - Unspecified atrial flutter Category: Medical Code(s): I48.92 - Unspecified atrial flutter (2) STEMI (ST elevation myocardial infarction): Status: Acute Qualifiers: Involved coronary artery: unspecified coronary artery Qualified Code(s): I21.3 - ST elevation (STEMI) myocardial infarction of unspecified site Category: Medical Code(s): I21.3 - ST elevation (STEMI) myocardial infarction of unspecified site (3) Hyperglycemic hyperosmolar nonketotic coma: Status: Acute Category: Medical Code(s): E11.01 - Type 2 diabetes mellitus with hyperosmolarity with coma (4) Acute hyperkalemia: Status: Acute Category: Medical Code(s): E87.5 - Hyperkalemia (5) Lactic acidosis: Status: Acute Category: Medical Code(s): E87.20 - Acidosis, unspecified (6) Transaminitis: Status: Acute Category: Medical Code(s): R74.01 - Elevation of levels of liver transaminase levels (7) Hyponatremia: Status: Acute Category: Medical Code(s): E87.1 - Hypo-osmolality and hyponatremia (8) Elevated brain natriuretic peptide (BNP) level: Status: Acute Category: Medical Code(s): R79.89 - Other specified abnormal findings of blood chemistry (9) Pain, dental: Status: Acute Category: Medical Code(s): K08.89 - Other specified disorders of teeth and supporting structures (10) Pleural effusion: Status: Acute Category: Medical Code(s): J90 - Pleural effusion, not elsewhere classified (11) Noncompliance: Status: Acute Category: Medical Code(s): Z91.199 - Patient's noncompliance with other medical treatment and regimen due to unspecified reason (12) Methamphetamine abuse: Status: Acute Category: Medical Code(s): F15.10 - Other stimulant abuse, uncomplicated Plan Assessment: Silent subacute inferior wall NM - I have discussed this case with the fur dresser who does not believe patient warrants emergent Business Operations Coordinator - Will continue weight-based Lovenox at 1 mg/kg of body weight of IV hydration - Will continue to trend patient's troponins - Will obtain 2D echo - Supervisor Advice to evaluate in the a.m. A-flutter: 2:1 ratio - tsh -free t4 Right pleural effusion Possible acute exacerbation of systolic dysfunction congestive heart failure: HFpEF Elevated BNP -Will obtain 2D echo as mentioned - Patient has hyperosmotic state has provided some therapeutic diuresis - We will hold off on any diuretics, because patient is intravascularly volume depleted - Will consider consultation of pulmonology for potential thoracentesis once patient is out of the acute phase HHNK - Will initiate insulin drip - Once blood glucose is less than 450 will change to subcu sliding scale insulin every 2 hours - Obtain hemoglobin A1c - 20 units of Lantus subcu now and then daily Hyperkalemia - Hopefully continuous infusion of insulin will decrease patient's potassium - Will give 10 mg of Lokelma p.o. - Recheck potassium in the a.m. Hyponatremia -Corrected is 139 - As mentioned we will hold off on crystalloids Lactic acidosis - Hold off on crystalloids - Trend patient's venous lactic acid Transaminitis: AST greater than ALT: Unable to calculate ratio - Most likely in the setting of right heart failure - Obtain hepatic ultrasound - Acute hepatitis panel, GGT, AFP, ferritin, ceruloplasmin, alpha 1 antitrypsin, MARQUIS, - CMP daily - Fractionate bilirubin - Obtain INR Dental pain - Will give patient Tylenol 650 mg p.o. every 6 hours for mild pain - 400 mg of ibuprofen every 8 hours as needed moderate to severe pain Methamphetamine usage - Counseled patient for 5 minutes on the use of illicit drugs and its cardiogenic effects - All questions were answered Noncompliance - Patient voiced not taking his medications since discharged in August - Patient does have AICD in place and does have HFrEF - Patient is goal-directed management we will continue Plan: Admit patient to the intensive care unit Saline lock Vital signs every hour Consult cardiology 1800 ADA/cardiac diet Obtain urine drug screen CBC/CMP daily Patient did receive 325 mg aspirin x 1 Patient is a very complex case-I discussed with both cardiology and attending physician 21 mg nicotine patch daily 4 mg Zofran IV push every 8 hours for nausea vomiting/full code I have discussed this case with attending physician Dr. Flower and I look forward to more input
--- OUTSIDE RECORDS SUMMARY | 2025-04-13 01:08 | XMS_ITS | Clinical Summary ---
Author Organization Healthcare Address [address] [place] [address] Care Team Providers Care Sweat Band Sewer Name Role Phone Unavailable Primary Care Provider [...]
[2025-04-13 01:40] LABS: Troponin I 1.65 ng/ml (0.00-0.034)
[2025-04-13] MEDS: LOKELMA 5GM PACKET 10 GM PO (02:09)
--- NOTE | 2025-04-13 02:52 | PC.NURSE ---
Critical lab glucose 726, notified Peggy Alberts APRN
[2025-04-13 03:09] LABS: Reflex Lactic Add Lactic Reflex
--- NOTE | 2025-04-13 03:21 | PC.NURSE ---
Micah DONNELLY called for HR sustaining 130's 140's at times but staying elevated in the past 30 mins and let him know how he was doing on the insulin gtt with blood glucose levels and no new orders are given at this time, will continue to monitor patient at the bedside.
--- NOTE | 2025-04-13 04:16 | ECG_ITS ---
APPROVED REPORT Exam: Resting ECG HR:130 bpm ECG Measurements Heart Rate 130 AXES QRSd 105 QRS 244 QT 314 T 80 QTc 391 Conclusion ATRIAL FLUTTER/TACHYCARDIA WITH RAPID VENTRICULAR RESPONSE INFERIOR MYOCARDIAL INFARCTION , PROBABLY OLD [40+ ms Q WAVE AND/OR ST/T ABNORMALITY IN II/aVF] ANTEROLATERAL MYOCARDIAL INFARCTION , OF INDETERMINATE AGE [40+ ms Q WAVE IN I/aVL/V3-V6] ABNORMAL ECG UNCONFIRMED REPORT Electronically signed by : Kelvin Montoya MD 04/13/2025 07:40:30
[2025-04-13 04:55] LABS: Albumin Level 3.9 g/dl (3.5-5.0)
[2025-04-13 04:56] LABS: Chloride 96 mmol/L (98-107); Potassium 3.9 mmoL/L (3.5-5.1); Sodium 135 mmol/L (136-145)
[2025-04-13 04:58] LABS: Albumin/Globulin Ratio 1.6 (1.1-1.8); Alkaline Phosphatase 654 U/L (38-126); Anion Gap 12.9 mEq/L (5-15); Bilirubin,Total 1.2 mg/dl (0.2-1.3); Blood Urea Nitrogen 27 mg/dl (9-20); Carbon Dioxide 30 mmol/L (22.0-30.0); Creatinine Clearance Estimated 97 mL/min (50-200); Creatinine,Serum 1.10 mg/dl (0.66-1.25); Estimated Glomerular Filt Rate 69 ml/min (>60); GFR (African American) 84 ML/MIN (>60); Globulin 2.5 g/dL (1.3-3.2); Total Protein,Serum 6.4 g/dl (6.3-8.2)
[2025-04-13 04:59] LABS: Calcium 10.2 mg/dl (8.4-10.2); Cholesterol 120 mg/dl (140-200); HDL Cholesterol 57 mg/dl (40-60); Lactic Acid Follow Up (RFLX 1) 5.4 mmol/L (0.7-2.1); Phosphorous 4.9 mg/dl (2.5-4.5); Triglycerides 75 mg/dl (30-150)
[2025-04-13 05:00] LABS: Hematocrit 49.3 % (42.0-52.0); Hemoglobin 16.2 g/dL (14.1-18.0); Immature Granulocytes % 0.4 %; Mean Corpuscular HGB Conc 32.9 g/dL (31.8-35.4); Mean Corpuscular Hemoglobin 27.7 pg (27.0-31.2); Mean Corpuscular Volume 84.3 fl (80-94); Nucleated Red Blood Cells % 0 %; Platelet Count 241 K/mm3 (142-424); Red Blood Count 5.85 M/mm3 (4.60-6.20); Red Cell Distribution Width-SD 44.7 fL; White Blood Count 11.7 K/mm3 (4.8-10.8)
--- NOTE | 2025-04-13 05:00 | PC.NURSE ---
Critical lactic 5.4, notified Addy Alberts.
[2025-04-13 05:04] LABS: Glucose 560 mg/dl (74-100)
--- NOTE | 2025-04-13 05:04 | PC.NURSE ---
Critical glucose 560, notified Peggy Alberts.
[2025-04-13 05:08] LABS: INR 1.71 (0.9-1.1); Prothrombin Time 18.2 seconds (10.1-12.5)
[2025-04-13 05:17] LABS: Troponin I 1.79 ng/ml (0.00-0.034)
[2025-04-13 05:24] LABS: Gamma Glutamyl Transpeptidase 1387 U/L (15-73)
[2025-04-13] MEDS: AMIODARONE HCL 150 MG in DEXTROSE 5 % IN WATER 100 ML 618 MG IV (05:27)
[2025-04-13] MEDS: AMIODARONE HCL 900 MG in DEXTROSE 5 % IN WATER 500 ML 34.53 MG IV (05:28)
[2025-04-13 05:30] LABS: Thyroid Stimulating Hormone 3.25 uIU/mL (0.465-4.68)
[2025-04-13 05:31] LABS: Free T4 (Free Thyroxine) 1.46 ng/dl (0.78-2.19)
[2025-04-13 05:38] LABS: Alanine Aminotransferase 1094 U/L (12-78); Ferritin > 1000 ng/ml (17.9-464)
[2025-04-13 05:47] LABS: Procalcitonin 0.813 ng/mL (0.0-2.0)
[2025-04-13 05:49] LABS: Aspartate Amino Transferase 1838 U/L (17-59)
[2025-04-13 06:43] LABS: Reflex Lactic (2 hrs) Add Lactic Reflex
[2025-04-13 07:48] LABS: POC Glucose,Bedside 506 (70-110)
[2025-04-13 07:48] LABS: POC Glucose,Bedside 490 (70-110)
[2025-04-13 07:48] LABS: POC Glucose,Bedside 430 (70-110)
[2025-04-13 07:59] LABS: Lactic Acid Follow up (RFLX 2) 6.5 mmol/L (0.7-2.1)
[2025-04-13] MEDS: DEFINITY US ECHO CONTRAST 2ML INJ 2 MG IV (08:18)
[2025-04-13] MEDS: MILRINONE LACTATE 20 MG in 0.9 % SODIUM CHLORIDE 80 ML 2.66 MG IV (08:20)
--- NOTE | 2025-04-13 08:30 | EXP.CARD.CON ---
History of Present Illness History of Present Illness Consult date: 04/13/25 Requesting physician: Darshan Flower Consult reason: atrial fibrillation and congestive heart failure Chief complaint: Tooth ache, feeling bad Additional Medical History:: 1. Hypertension 2. Hyperlipidemia 3. Cardiomyopathy with [employer] ICD model D233 implanted 03/14/2021 A. HFrEF with EF 20-25% by echo, 08/2024, grade 2 diastolic dysfunction with no significant valve disease 4. Right lower extremity [id number] amputation due to history of trauma 5. Diabetes with history of DKA 6. History of methamphetamine use History of present illness: This is a 54-year-old male who is well-known to our service line and has a past medical history significant for HFrEF currently with AICD placement, diabetes, ischemic cardiomyopathy, hypertension, hyperlipidemia, methamphetamine usage, GERD, anxiety, and coronary artery disease who presents with a chief complaint of dental pain. Due to patient's symptoms, he presented to the emergency room for evaluation. While in the emergency room, patient's blood glucose was documented greater than 800, EKG findings was consistent with a subacute inferior infarct, and elevated white blood cell count. This case was discussed with cardiology who did not believe that patient warranted emergent coronary artery intervention; however, he believed that patient's hyperglycemic hyperosmolar state should be negotiated and his A-flutter was 2 1 ratio should be minimized. He recommended patient to receive a one-time dose of metoprolol 5 mg and was against giving patient any significant amount of crystalloids. Due to this, hospital medicine was contacted for further management During my evaluation of the patient, patient reports that he has not had any of his medications he was discharged home back in August since 6 days after discharge. He reports taking or being compliant with his medication for those 6 days and since then he has not taken any of his medications. Patient reports a 3-day history of shortness of breath while at rest. Moreover, patient states that he recently lost a filling to his third molar and since then he has been experiencing dental pain. He reports that cold water does not exacerbate his symptomology; however, hot water does. He reports no drainage or fluid collection near the area of concern. He voices having decreased p.o. intake and is only able to tolerate Jell-O and pudding. Patient has reported no chest pain; moreover, he denied any lightheadedness, dizziness, fever, chills, rigors, PND, orthopnea, nausea, or diarrhea. CTA of the chest revealed a large right pleural effusion, cardiomegaly, and old granulomatous disease. 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 Additional pertinent vitals obtained include a white blood cell count of 14.2, red blood cell count of 6.28, hematocrit of 54, D-dimer 3.61, venous lactic acid of 4.5, bicarb of 20.1, sodium 126, potassium of 6, chloride of 90, BUN of 28, blood glucose of 889, phosphorus 6.1, total bilirubin 2.6, AST of greater than 1500, ALT of 1248, alkaline phosphate of 1028, troponin of 1.98, and BNP of 12,200. It is worth mentioning that patient does report recent methamphetamine usage. The above per Micah Alberts APRN for the hospitalist service. Patient denies any chest pain, pressure or tightness this morning. He still complains of a toothache. Due to his cardiogenic shock and multiorgan failure it is recommended that he be transferred to a tertiary facility for further evaluation. Patient is agreeable to this. Current heart rate is in the 120s and patient is able to sit at a 45 degree angle without dyspnea. He has mottling of his left lower extremity with coolness to touch. He has a [id number] amputation of his right lower extremity. Recent lactate this morning was noted to be up to 6.5, hyperkalemia has resolved. Glucoses trending down with last lab glucose of 560 at 430 this morning. Hyponatremia has improved from 126-135. LFTs are still markedly elevated with AST at 1838 and ALT at 1094. Troponin is trending down from 1.98-1.79 with BNP over 12,000. Renal function remarkably stable at 1.1 with GFR of 69. Milrinone and night pride are being started. Cardiology is holding off on any interventional plans at this time. We are trying to facilitate transfer. Our cardiology clinic has been receiving the patient's defibrillator downloads with recent increase in A-fib and nonsustained V. tach noted. We have tried on multiple occasions to reach the patient by phone and letter which have been unsuccessful. I did ask the patient today if he had a working cell phone and he said yes but he states he had recently changed his number and did not inform us of this. [facility] Disclaimer: The information contained in this section may have been updated after the patient was seen, as this information can be updated by other users. Medical History (Updated 04/13/25 @ 08:52 by ERICKA Stubbs) Diabetes mellitus, type 2 Sinus tachycardia CAD (coronary artery disease) Right above-knee amputee Social History (Updated 04/13/25 @ 01:57 by Glenys Carmona RN) Smoking Status: Current every day smoker tobacco type: cigarettes packs per day: 1 alcohol intake: current alcohol intake frequency: a few times a month substance use type: denies use current occupational status: disabled Travel in the last 8 weeks?: None household members: significant other housing: house caffeine: Yes Have you lived/traveled outside [place] in past 30 days?: No Contact w/someone who lives/traveled outside US past 30 days?: No Exposure to someone with infectious disease in past 14 days?: No Do you have a fever (greater than 100.4 F or 38 C)?: No Have you tested positive for COVID-19?: No Exposed to someone with COVID-19 in past 14 days?: No Do you have a sore throat?: No Do you have a cough?: No Do you have any weakness?: No Are you experiencing any nausea/vomitting?: No Do you have any diarrhea?: No Are you experiencing any unusual bleeding?: No Do you have any muscle aches/pain?: No Do you have any abdominal pain?: No Are you experiencing loss of taste or smell?: No Review of Systems Review of Systems Review of systems:: pertinent systems reviewed and negative unless documented below Constitutional Constitutional: Reports fatigue, Reports poor appetite, Reports lethargy, Reports malaise and Reports weight loss *Cardiovascular Cardiovascular: Reports dyspnea, Reports dyspnea on exertion and Reports rapid heart rate *Respiratory Respiratory: Reports dyspnea and Reports dyspnea on exertion *Gastrointestinal Gastrointestinal: Reports abdominal pain *Neurologic Neurologic: Reports system reviewed and no additional complaints, except as documented Endocrine Endocrine: Reports fatigue Exam Data for Last 24 hours Vital signs and Labs for Last 24 Hours: Temp Pulse Resp BP Pulse Ox O2 Del Method 97.5 F L 126 H 18 124/88 98 Room Air 04/13/25 02:00 04/13/25 07:00 04/13/25 07:00 04/13/25 07:00 04/13/25 07:00 04/13/25 07:00 Laboratory Results - last 24 hr 04/12/25 21:45: WBC 14.2 H, RBC 6.28 H, Hgb 17.4, Hct 54.0 H, MCV 86.0, MCH 27.7, MCHC 32.2, RDW 16.6, Plt Count 224, MPV 12.5 H, Neut % (Auto) 77.9, Lymph % (Auto) 11.4, [place] % (Auto) 9.7 H, Eos % (Auto) 0.0 L, Baso % (Auto) 0.4, Neut # (Auto) 11.0 H, Lymph # (Auto) 1.6, [place] # (Auto) 1.4 H, Eos # (Auto) 0.0, Baso # (Auto) 0.1, D-Dimer 3.61 H, Sodium 126 L, Potassium 6.0 H, Chloride 90 L, Carbon Dioxide 22, Anion Gap 20.0 H, BUN 28 H, Creatinine 1.10, Estimated Creat Clear 97, Estimated GFR 69, Est GFR ( Amer) 84, Glucose 889 H*, Calcium 10.1, Phosphorus 6.1 H, Magnesium 2.3, Total Bilirubin 2.6 H, AST > 1500 H*, ALT 1248 H*, Alkaline Phosphatase 1028 H, Troponin I 1.98 H, NT-Pro-B Natriuret Pep 89234 H, Total Protein 7.1, Albumin 4.4, Globulin 2.7, Albumin/Globulin Ratio 1.6, Salicylates < 1.0 L, Acetaminophen < 10 L 04/12/25 22:57: VBG pH 7.31, VBG pCO2 41.4, VBG pO2 57.6 H, VBG HCO3 20.1 L, VBG Total CO2 21.4 L, VBG O2 Saturation 85.2 H, VBG Base Excess -6.2 L, VBG Lactic Acid 4.5 H 04/13/25 00:59: Troponin I 1.65 H 04/13/25 02:23: Random Glucose 726 H* D 04/13/25 04:30: WBC 11.7 H, RBC 5.85, Hgb 16.2, Hct 49.3, MCV 84.3, MCH 27.7, MCHC 32.9, RDW 14.8, Plt Count 241, MPV 11.8 H, Neut % (Auto) 71.8, Lymph % (Auto) 19.8, [place] % (Auto) 7.5, Eos % (Auto) 0.1, Baso % (Auto) 0.4, Neut # (Auto) 8.4 H, Lymph # (Auto) 2.3, [place] # (Auto) 0.9, Eos # (Auto) 0.0, Baso # (Auto) 0.1, PT 18.2 H, INR 1.71 H, Sodium 135 L, Potassium 3.9 D, Chloride 96 L, Carbon Dioxide 30, Anion Gap 12.9, BUN 27 H, Creatinine 1.10, Estimated Creat Clear 97, Estimated GFR 69, Est GFR ( Amer) 84, Glucose 560 H* D, Random Glucose 560 H*, Lactate 5.4 H, Calcium 10.2, Phosphorus 4.9 H, Ferritin > 1000 H D, Total Bilirubin 1.2, GGT 1387 H, AST 1838 H*, ALT 1094 H*, Alkaline Phosphatase 654 H, Troponin I 1.79 H, Total Protein 6.4, Albumin 3.9 D, Globulin 2.5, Albumin/Globulin Ratio 1.6, Triglycerides 75, Cholesterol 120 L, LDL Cholesterol Direct 33.61 L, VLDL Cholesterol 15, HDL Cholesterol 57, Cholesterol/HDL Ratio 2.1, Procalcitonin 0.813, TSH 3.25, Free T4 1.46 04/13/25 05:36: POC Glucose 506 H* 04/13/25 06:40: POC Glucose 490 H* 04/13/25 07:35: Random Glucose 330 H, Lactate 6.5 H 04/13/25 07:41: POC Glucose 430 H* I & O for Last 24 hours: Intake & Output 04/10/25 04/11/25 04/12/25 04/13/25 11:59 11:59 11:59 11:59 Output Total 1375 / 1375 Balance -1375 / -1375 Weight 153 lb 0.013 oz Constitutional Constitutional: no acute distress *Routine Respiratory Exam Respiratory: Present decreased breath sounds; Absent wheezes *Routine Cardiovascular Exam Cardiovascular: Present tachycardia and irregularly irregular *Routine Extremities Exam Extremities: Present amputation (AKA of RLE) Comments: Mottling of lower extremities. *Routine Neurological Exam Neurological: Present alert, oriented X3 and CN II-XII intact Meds Home Medications and Allergies Home Medications ?Medication ?Instructions ?Recorded ?Confirmed ?Type atorvastatin 40 mg tablet 40 mg PO HS #90 tabs 10/23/22 09/22/24 Rx lisinopril 20 mg tablet 20 mg PO DAILY #90 tabs 10/23/22 09/22/24 Rx blood sugar diagnostic (Accu-Chek #100 ea 09/24/24 Rx Guide test strips) blood-glucose meter (Accu-Chek #1 ea 09/24/24 Rx Guide Glucose Meter) empagliflozin 10 mg tablet 10 mg PO DAILY 30 days #30 tabs 09/24/24 Rx (Jardiance) insulin glargine 100 unit/mL (3 50 unit (0.5 mL) SQ HS #15 mL 09/24/24 Rx mL) subcutaneous pen (Lantus Solostar U-100 Insulin) insulin lispro 100 unit/mL 10 unit (0.1 mL) SQ TID #15 mL 09/24/24 Rx subcutaneous pen (Humalog KwikPen (U-100) Insulin) lancets 32 gauge #100 ea 09/24/24 Rx metformin 500 mg tablet 500 mg PO BIDWMEAL 30 days #60 tabs 09/24/24 Rx pen needle, diabetic 31 gauge x #100 ea 09/24/24 Rx 1/4 New Prescriptions to Start Prescriptions: Allergies Allergy/AdvReac Type Severity Reaction Status Date / Time ticagrelor (From Brilinta) Allergy Mild Verified 06/06/21 10:14 butorphanol (From STADOL) Allergy Unknown Verified 06/06/21 10:14 Assessment and Plan *Assessment and plan (1) Cardiogenic shock: Status: Acute Category: Medical Code(s): R57.0 - Cardiogenic shock (2) Multi-organ failure with heart failure: Status: Acute Category: Medical Code(s): I50.9 - Heart failure, unspecified (3) Methamphetamine abuse: Status: Acute Category: Medical Code(s): F15.10 - Other stimulant abuse, uncomplicated (4) Noncompliance: Status: Acute Category: Medical Code(s): Z91.199 - Patient's noncompliance with other medical treatment and regimen due to unspecified reason (5) Pleural effusion: Status: Acute Category: Medical Code(s): J90 - Pleural effusion, not elsewhere classified (6) Hyponatremia: Status: Acute Category: Medical Code(s): E87.1 - Hypo-osmolality and hyponatremia (7) Transaminitis: Status: Acute Category: Medical Code(s): R74.01 - Elevation of levels of liver transaminase levels (8) Lactic acidosis: Status: Acute Category: Medical Code(s): E87.20 - Acidosis, unspecified (9) Hyperglycemic hyperosmolar nonketotic coma: Status: Acute Category: Medical Code(s): E11.01 - Type 2 diabetes mellitus with hyperosmolarity with coma (10) Atrial flutter: Status: Acute Qualifiers: Atrial flutter type: unspecified Qualified Code(s): I48.92 - Unspecified atrial flutter Category: Medical Code(s): I48.92 - Unspecified atrial flutter (11) Tobacco use disorder: Status: Chronic Category: Medical Code(s): F17.200 - Nicotine dependence, unspecified, uncomplicated (12) CAD (coronary artery disease): Status: Chronic Qualifiers: Coronary Disease-Associated Artery/Lesion type: [place] artery [place] vs. transplanted heart: [place] heart Associated angina: without angina Qualified Code(s): I25.10 - Atherosclerotic heart disease of [place] coronary artery without angina pectoris Category: Medical Code(s): I25.10 - Atherosclerotic heart disease of [place] coronary artery without angina pectoris (13) Ischemic cardiomyopathy: Status: Acute Category: Medical Code(s): I25.5 - Ischemic cardiomyopathy Plan 1. HFrEF with cardiogenic shock and multiorgan failure -Lactate rising to 6.5 with transaminitis -Starting on IV milrinone and IV nipride -EF 20-25% by echo in August of this year -ICD implanted 2020 2. HHNK -on insulin -per Hospitalist 3. Electrolyte abnormalities including hyponatremia, hyperkalemia -Hyponatremia improving -Hyperkalemia resolved 4. Atrial fibs/flutter with RVR -Work on rate control with IV amiodarone -Per last device download on 04/10/2025 patient's A-fib burden was less than 1% with 10 episodes of nonsustained V. tach the longest of which lasting 21-second 5. Transaminitis -AST greater than 1800, ALT greater than 1000 -Elevated INR at 1.7 6. Elevated troponin likely secondary to demand ischemia -Known ischemic cardiomyopathy with EF 20-25% in August of this year 7. History of methamphetamine use recently 8. History of noncompliance Patient is going to be transferred to [facility] in [place], [place].
[2025-04-13] MEDS: NITROPRUSSIDE SODIUM 50 MG in DEXTROSE 5 % IN WATER 250 ML 10.72 MG IV (08:32)
--- NOTE | 2025-04-13 09:00 | P.DS_ITS ---
General Admission date:: 04/13/25 HPI HPI HPI: This is a 54-year-old male who is well-known to our service line and has a past medical history significant for HFrEF currently with AICD placement, diabetes, ischemic cardiomyopathy, hypertension, hyperlipidemia, methamphetamine usage, GERD, anxiety, and coronary artery disease who presents with a chief complaint of dental pain. Due to patient's symptoms, he presented to the emergency room for evaluation. While in the emergency room, patient's blood glucose was documented greater than 800, EKG findings was consistent with a subacute inferior infarct, and elevated white blood cell count. This case was discussed with cardiology who did not believe that patient warranted emergent coronary artery intervention; however, he believed that patient's hyperglycemic hyperosmolar state should be negotiated and his A-flutter was 2 1 ratio should be minimized. He recommended patient to receive a one-time dose of metoprolol 5 mg and was against giving patient any significant amount of crystalloids. Due to this, hospital medicine was contacted for further management During my evaluation of the patient, patient reports that he has not had any of his medications he was discharged home back in August since 6 days after discharge. He reports taking or being compliant with his medication for those 6 days and since then he has not taken any of his medications. Patient reports a 3-day history of shortness of breath while at rest. Moreover, patient states that he recently lost a filling to his third molar and since then he has been experiencing dental pain. He reports that cold water does not exacerbate his symptomology; however, hot water does. He reports no drainage or fluid collection near the area of concern. He voices having decreased p.o. intake and is only able to tolerate Jell-O and pudding. Patient has reported no chest pain; moreover, he denied any lightheadedness, dizziness, fever, chills, rigors, PND, orthopnea, nausea, or diarrhea. CTA of the chest revealed a large right pleural effusion, cardiomegaly, and old granulomatous disease. 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 Additional pertinent vitals obtained include a white blood cell count of 14.2, red blood cell count of 6.28, hematocrit of 54, D-dimer 3.61, venous lactic acid of 4.5, bicarb of 20.1, sodium 126, potassium of 6, chloride of 90, BUN of 28, blood glucose of 889, phosphorus 6.1, total bilirubin 2.6, AST of greater than 1500, ALT of 1248, alkaline phosphate of 1028, troponin of 1.98, and BNP of 12,200. It is worth mentioning that patient does report recent methamphetamine usage. Exam Data for Last 24 hours Vital signs and Labs for Last 24 Hours: Temp Pulse Resp BP Pulse Ox O2 Del Method 97.4 F L 125 H 19 112/90 98 Room Air 04/13/25 08:00 04/13/25 08:00 04/13/25 08:00 04/13/25 08:00 04/13/25 08:00 04/13/25 08:00 Laboratory Results - last 24 hr 04/12/25 21:45: WBC 14.2 H, RBC 6.28 H, Hgb 17.4, Hct 54.0 H, MCV 86.0, MCH 27.7, MCHC 32.2, RDW 16.6, Plt Count 224, MPV 12.5 H, Neut % (Auto) 77.9, Lymph % (Auto) 11.4, [place] % (Auto) 9.7 H, Eos % (Auto) 0.0 L, Baso % (Auto) 0.4, Neut # (Auto) 11.0 H, Lymph # (Auto) 1.6, [place] # (Auto) 1.4 H, Eos # (Auto) 0.0, Baso # (Auto) 0.1, D-Dimer 3.61 H, Sodium 126 L, Potassium 6.0 H, Chloride 90 L, Carbon Dioxide 22, Anion Gap 20.0 H, BUN 28 H, Creatinine 1.10, Estimated Creat Clear 97, Estimated GFR 69, Est GFR ( Amer) 84, Glucose 889 H*, Calcium 10.1, Phosphorus 6.1 H, Magnesium 2.3, Total Bilirubin 2.6 H, AST > 1500 H*, ALT 1248 H*, Alkaline Phosphatase 1028 H, Troponin I 1.98 H, NT-Pro-B Natriuret Pep 76721 H, Total Protein 7.1, Albumin 4.4, Globulin 2.7, Albumin/Globulin Ratio 1.6, Salicylates < 1.0 L, Acetaminophen < 10 L 04/12/25 22:57: VBG pH 7.31, VBG pCO2 41.4, VBG pO2 57.6 H, VBG HCO3 20.1 L, VBG Total CO2 21.4 L, VBG O2 Saturation 85.2 H, VBG Base Excess -6.2 L, VBG Lactic Acid 4.5 H 04/13/25 00:59: Troponin I 1.65 H 04/13/25 02:23: Random Glucose 726 H* D 04/13/25 04:30: WBC 11.7 H, RBC 5.85, Hgb 16.2, Hct 49.3, MCV 84.3, MCH 27.7, MCHC 32.9, RDW 14.8, Plt Count 241, MPV 11.8 H, Neut % (Auto) 71.8, Lymph % (Auto) 19.8, [place] % (Auto) 7.5, Eos % (Auto) 0.1, Baso % (Auto) 0.4, Neut # (Auto) 8.4 H, Lymph # (Auto) 2.3, [place] # (Auto) 0.9, Eos # (Auto) 0.0, Baso # (Auto) 0.1, PT 18.2 H, INR 1.71 H, Sodium 135 L, Potassium 3.9 D, Chloride 96 L , Carbon Dioxide 30, Anion Gap 12.9, BUN 27 H, Creatinine 1.10, Estimated Creat Clear 97, Estimated GFR 69, Est GFR ( Amer) 84, Glucose 560 H* D, Random Glucose 560 H*, Lactate 5.4 H, Calcium 10.2, Phosphorus 4.9 H, Ferritin > 1000 H D, Total Bilirubin 1.2, GGT 1387 H, AST 1838 H*, ALT 1094 H*, Alkaline Phosphatase 654 H, Troponin I 1.79 H, Total Protein 6.4, Albumin 3.9 D, Globulin 2.5, Albumin/Globulin Ratio 1.6, Triglycerides 75, Cholesterol 120 L, LDL Cholesterol Direct 33.61 L, VLDL Cholesterol 15, HDL Cholesterol 57, Cholesterol/HDL Ratio 2.1, Procalcitonin 0.813, TSH 3.25, Free T4 1.46 04/13/25 05:36: POC Glucose 506 H* 04/13/25 06:40: POC Glucose 490 H* 04/13/25 07:35: Random Glucose 330 H, Lactate 6.5 H 04/13/25 07:41: POC Glucose 430 H* I & O for Last 24 hours: Intake & Output 04/10/25 04/11/25 04/12/25 04/13/25 23:59 23:59 23:59 23:59 Output Total 1375 / 1375 Balance -1375 / -1375 Weight 90.718 kg 69.4 kg Results Data Completed and Pending Labs on day of discharge: Labs from last 24 hours 04/13/25 04/13/25 04/13/25 07:41 07:35 06:40 WBC RBC Hgb Hct MCV MCH MCHC RDW Plt Count MPV Neut % (Auto) Lymph % (Auto) [place] % (Auto) Eos % (Auto) Baso % (Auto) Neut # (Auto) Lymph # (Auto) [place] # (Auto) Eos # (Auto) Baso # (Auto) PT INR D-Dimer VBG pH VBG pCO2 VBG pO2 VBG HCO3 VBG Total CO2 VBG O2 Saturation VBG Base Excess VBG Lactic Acid Sodium Potassium Chloride Carbon Dioxide Anion Gap BUN Creatinine Estimated Creat Clear Estimated GFR Est GFR ( Amer) Glucose POC Glucose 430 H* 490 H* Random Glucose 330 H Lactate 6.5 H Calcium Phosphorus Magnesium Ferritin Total Bilirubin GGT AST ALT Alkaline Phosphatase Troponin I NT-Pro-B Natriuret Pep Total Protein Albumin Globulin Albumin/Globulin Ratio Triglycerides Cholesterol LDL Cholesterol Direct VLDL Cholesterol HDL Cholesterol Cholesterol/HDL Ratio Procalcitonin TSH Free T4 Salicylates Acetaminophen 04/13/25 04/13/25 04/13/25 05:36 04:30 02:23 WBC 11.7 H RBC 5.85 Hgb 16.2 Hct 49.3 MCV 84.3 MCH 27.7 MCHC 32.9 RDW 14.8 Plt Count 241 MPV 11.8 H Neut % (Auto) 71.8 Lymph % (Auto) 19.8 [place] % (Auto) 7.5 Eos % (Auto) 0.1 Baso % (Auto) 0.4 Neut # (Auto) 8.4 H Lymph # (Auto) 2.3 [place] # (Auto) 0.9 Eos # (Auto) 0.0 Baso # (Auto) 0.1 PT 18.2 H INR 1.71 H D-Dimer VBG pH VBG pCO2 VBG pO2 VBG HCO3 VBG Total CO2 VBG O2 Saturation VBG Base Excess VBG Lactic Acid Sodium 135 L Potassium 3.9 D Chloride 96 L Carbon Dioxide 30 Anion Gap 12.9 BUN 27 H Creatinine 1.10 Estimated Creat Clear 97 Estimated GFR 69 Est GFR ( Amer) 84 Glucose 560 H* D POC Glucose 506 H* Random Glucose 560 H* 726 H* D Lactate 5.4 H Calcium 10.2 Phosphorus 4.9 H Magnesium Ferritin > 1000 H D Total Bilirubin 1.2 GGT 1387 H AST 1838 H* ALT 1094 H* Alkaline Phosphatase 654 H Troponin I 1.79 H NT-Pro-B Natriuret Pep Total Protein 6.4 Albumin 3.9 D Globulin 2.5 Albumin/Globulin Ratio 1.6 Triglycerides 75 Cholesterol 120 L LDL Cholesterol Direct 33.61 L VLDL Cholesterol 15 HDL Cholesterol 57 Cholesterol/HDL Ratio 2.1 Procalcitonin 0.813 TSH 3.25 Free T4 1.46 Salicylates Acetaminophen 04/13/25 04/12/25 04/12/25 00:59 22:57 21:45 WBC 14.2 H RBC 6.28 H Hgb 17.4 Hct 54.0 H MCV 86.0 MCH 27.7 MCHC 32.2 RDW 16.6 Plt Count 224 MPV 12.5 H Neut % (Auto) 77.9 Lymph % (Auto) 11.4 [place] % (Auto) 9.7 H Eos % (Auto) 0.0 L Baso % (Auto) 0.4 Neut # (Auto) 11.0 H Lymph # (Auto) 1.6 [place] # (Auto) 1.4 H Eos # (Auto) 0.0 Baso # (Auto) 0.1 PT INR D-Dimer 3.61 H VBG pH 7.31 VBG pCO2 41.4 VBG pO2 57.6 H VBG HCO3 20.1 L VBG Total CO2 21.4 L VBG O2 Saturation 85.2 H VBG Base Excess -6.2 L VBG Lactic Acid 4.5 H Sodium 126 L Potassium 6.0 H Chloride 90 L Carbon Dioxide 22 Anion Gap 20.0 H BUN 28 H Creatinine 1.10 Estimated Creat Clear 97 Estimated GFR 69 Est GFR ( Amer) 84 Glucose 889 H* POC Glucose Random Glucose Lactate Calcium 10.1 Phosphorus 6.1 H Magnesium 2.3 Ferritin Total Bilirubin 2.6 H GGT AST > 1500 H* ALT 1248 H* Alkaline Phosphatase 1028 H Troponin I 1.65 H 1.98 H NT-Pro-B Natriuret Pep 71970 H Total Protein 7.1 Albumin 4.4 Globulin 2.7 Albumin/Globulin Ratio 1.6 Triglycerides Cholesterol LDL Cholesterol Direct VLDL Cholesterol HDL Cholesterol Cholesterol/HDL Ratio Procalcitonin TSH Free T4 Salicylates < 1.0 L Acetaminophen < 10 L DS: Diagnosis Discharge Diagnosis (1) Cardiogenic shock: Status: Acute Code(s): R57.0 - Cardiogenic shock (2) Multi-organ failure with heart failure: Status: Acute Code(s): I50.9 - Heart failure, unspecified (3) Methamphetamine abuse: Status: Acute Code(s): F15.10 - Other stimulant abuse, uncomplicated (4) Noncompliance: Status: Acute Code(s): Z91.199 - Patient's noncompliance with other medical treatment and regimen due to unspecified reason (5) Pleural effusion: Status: Acute Code(s): J90 - Pleural effusion, not elsewhere classified (6) Hyponatremia: Status: Acute Code(s): E87.1 - Hypo-osmolality and hyponatremia (7) Transaminitis: Status: Acute Code(s): R74.01 - Elevation of levels of liver transaminase levels (8) Lactic acidosis: Status: Acute Code(s): E87.20 - Acidosis, unspecified (9) Hyperglycemic hyperosmolar nonketotic coma: Status: Acute Code(s): E11.01 - Type 2 diabetes mellitus with hyperosmolarity with coma (10) Atrial flutter: Status: Acute Code(s): I48.92 - Unspecified atrial flutter Qualifiers: Atrial flutter type: unspecified Qualified Code(s): I48.92 - Unspecified atrial flutter (11) Tobacco use disorder: Status: Chronic Code(s): F17.200 - Nicotine dependence, unspecified, uncomplicated (12) CAD (coronary artery disease): Status: Chronic Code(s): I25.10 - Atherosclerotic heart disease of [place] coronary artery without angina pectoris Qualifiers: Coronary Disease-Associated Artery/Lesion type: [place] artery [place] vs. transplanted heart: [place] heart Associated angina: without angina Qualified Code(s): I25.10 - Atherosclerotic heart disease of [place] coronary artery without angina pectoris (13) Ischemic cardiomyopathy: Status: Acute Code(s): I25.5 - Ischemic cardiomyopathy Meds Home Medications and Allergies Home Medications ?Medication ?Instructions ?Recorded ?Confirmed ?Type atorvastatin 40 mg tablet 40 mg PO HS #90 tabs 3 09/22/24 Rx lisinopril 20 mg tablet 20 mg PO DAILY #90 tabs /12/2009/22/24 Rx blood sugar diagnostic (Accu-Chek #100 ea 09/24/24 Rx Guide test strips) blood-glucose meter (Accu-Chek #1 ea 09/24/24 Rx Guide Glucose Meter) empagliflozin 10 mg tablet 10 mg PO DAILY 30 days #30 tabs 09/24/24 Rx (Jardiance) insulin glargine 100 unit/mL (3 50 unit (0.5 mL) SQ HS #15 mL 09/24/24 Rx mL) subcutaneous pen (Lantus Solostar U-100 Insulin) insulin lispro 100 unit/mL 10 unit (0.1 mL) SQ TID #15 mL 09/24/24 Rx subcutaneous pen (Humalog KwikPen (U-100) Insulin) lancets 32 gauge #100 ea 09/24/24 Rx metformin 500 mg tablet 500 mg PO BIDWMEAL 30 days # 60 tabs 09/24/24 Rx pen needle, diabetic 31 gauge x #100 ea 09/24/24 Rx 1/4 New Prescriptions to Start Prescriptions: Allergies Allergy/AdvReac Type Severity Reaction Status Date / Time ticagrelor (From Brilinta) Allergy Mild Verified 06/06/21 10:14 butorphanol (From STADOL) Allergy Unknown Verified 06/06/21 10:14 Discharge Plan Disposition Patient Disposition: Xfer Short-Term Hosp Condition: Fair Discharge Order Discharge Orders: Discharge Order (Routine); Ordered 04/13/25 Ordered By: Darshan Flower Follow up Plan Prescriptions/Medication Reconciliation: No Action atorvastatin 40 mg tablet 40 mg PO HS Qty: 90 3RF lisinopril 20 mg tablet 20 mg PO DAILY Qty: 90 3RF Jardiance 10 mg Tablet 10 mg PO DAILY 30 Days Qty: 30 0RF insulin glargine [Lantus Solostar U-100 Insulin] 100 unit/mL (3 mL) Insulin Pen 50 unit SQ HS Qty: 15 0RF metformin 500 mg Tablet 500 mg PO BIDWMEAL 30 Days Qty: 60 0RF insulin lispro [Humalog KwikPen Insulin] 100 unit/mL insulin pen 10 unit SQ TID Qty: 15 0RF (DME) pen needle, diabetic 31 gauge x 1/4 needle See Rx Instructions .ROUTE .MEDSUPPLY Qty: 100 0RF Rx Instructions: With mealtime and nighttime insulin. (DME) blood-glucose meter [Accu-Chek Guide Glucose Meter] Misc See Rx Instructions .Route Qty: 1 0RF Rx Instructions: Check fingerstick blood sugar 3 times a day. Okay to substitute based on insurance preference (DME) lancets 32 gauge misc See Rx Instructions .Route Qty: 100 0RF Rx Instructions: Fingerstick glucose monitoring 3 times a day (DME) Accu-Chek Guide test strips Strip See Rx Instructions .Route Qty: 100 0RF Rx Instructions: Check 3 times a day Problem Reconciliation Problems Reviewed?: Yes Patient Discharge Instructions Print Language: Welsh Providers Primary Care Provider: Rafat Hdz Admit Provider: Darshan Flower Attending Provider: Darshan Flower
--- NOTE | 2025-04-13 09:04 | PC.NURSE ---
At 0855 I spoke with [facility] in [place], [place] and they gave me a bed in the CCU. Number for report is . AT 0857 I spoke with [facility] in attempt to get a helicopter in route to take patient. [place] declined due to weather, [place] was on another call. [facility] Stated they would check with [place] to see if they could take patient and would call me back.
[2025-04-13] MEDS: HEPARIN SODIUM,PORCINE/D5W 500 ML 17 UNIT IV (09:15)
[2025-04-13] MEDS: INSULIN REGULAR, HUMAN 100 UNIT in 0.9 % SODIUM CHLORIDE 100 ML 9.16 UNIT IV (09:19)
[2025-04-13] MEDS: HEPARIN SODIUM 5,000 UNIT/ML VIAL 5000 UNIT IV (09:23)
--- NOTE | 2025-04-13 09:35 | PC.NURSE ---
attempted to call report to [facility] at this time. nurse off the unit. will call back.
--- NOTE | 2025-04-13 09:40 | PC.NURSE ---
[facility] arrived to ICU for patient transport and are at bedside at this time.
--- NOTE | 2025-04-13 09:44 | ECG_ITS ---
APPROVED REPORT Exam: Resting ECG HR:82 bpm ECG Measurements Heart Rate 82 AXES HI 156 P -17 QRSd 106 QRS 204 QT 418 T 55 QTc 456 Conclusion SINUS RHYTHM LEFT ATRIAL ENLARGEMENT [-0.15mV P-WAVE IN V1/V2] POSSIBLE RIGHT VENTRICULAR HYPERTROPHY [SOME/ALL OF: PROMINENT R IN V1, LATE TRANSITION, RAD, TRUDY, SSS] INFERIOR MYOCARDIAL INFARCTION , PROBABLY OLD [40+ ms Q WAVE AND/OR ST/T ABNORMALITY IN II/aVF] ANTEROLATERAL MYOCARDIAL INFARCTION , OF INDETERMINATE AGE [40+ ms Q WAVE IN I/aVL/V3-V6] ABNORMAL ECG UNCONFIRMED REPORT Electronically signed by : Kelvin Montoya MD 04/15/2025 12:47:22
--- NOTE | 2025-04-13 09:51 | PC.NURSE ---
receiving RN at the [facility] is still not back and I have been unable to give report. Will try again.
[2025-04-13 09:55] LABS: POC Glucose,Bedside 194 (70-110)
--- NOTE | 2025-04-13 10:05 | PC.NURSE ---
report given to Nurse corporate security manager at 1000
--- NOTE | 2025-04-13 10:10 | PC.NURSE ---
[facility] is leaving the ICU ith patient via stretcher @ [id number]
[2025-04-13 10:14] LABS: PTT Heparin (inpatient only) 29.3 Seconds (50-75)
[2025-04-14 04:31] LABS: Hemoglobin A1C > 14.0 % (4.0-6.0)
[2025-04-14 12:12] LABS: POC Glucose,Bedside > 600 (70-110)
[2025-04-14 12:13] LABS: POC Glucose,Bedside > 600 (70-110)
[2025-04-16 13:10] LABS: Antinuclear Antibodies (ANA) Negative (Negative)
== END 2025-04-13 10:10 | disposition short-term general hospital (02) | DRG 280 ==
LOC: ER 21:09 → ICU 04-13 01:01
PROVIDERS: Internal Medicine; Nurse Practitioner Family; Admitting Provider Student in an Organized Health Care Education/Training Program; Emergency Provider Student in an Organized Health Care Education/Training Program; PCP Family Medicine; Visit Provider Student in an Organized Health Care Education/Training Program
DX: I11.0 Hypertensive heart disease with heart failure (principal); E11.01 Type 2 diabetes mellitus with hyperosmolarity with coma; I21.19 ST elevation (STEMI) myocardial infarction involving other coronary artery of inferior wall; R57.0 Cardiogenic shock; I50.23 Acute on chronic systolic (congestive) heart failure; I48.92 Unspecified atrial flutter; E87.1 Hypo-osmolality and hyponatremia; E87.20 Acidosis, unspecified; J90 Pleural effusion, not elsewhere classified; I25.5 Ischemic cardiomyopathy; I25.10 Atherosclerotic heart disease of native coronary artery without angina pectoris; K21.9 Gastro-esophageal reflux disease without esophagitis; F41.9 Anxiety disorder, unspecified; E78.5 Hyperlipidemia, unspecified; E87.5 Hyperkalemia; K08.89 Other specified disorders of teeth and supporting structures; F17.210 Nicotine dependence, cigarettes, uncomplicated; F15.10 Other stimulant abuse, uncomplicated; R74.01 Elevation of levels of liver transaminase levels; Z89.611 Acquired absence of right leg above knee; Z95.810 Presence of automatic (implantable) cardiac defibrillator; Z91.148 Patient's other noncompliance with medication regimen for other reason; Z91.199 Patient's noncompliance with other medical treatment and regimen due to unspecified reason; Z79.4 Long term (current) use of insulin; Z79.84 Long term (current) use of oral hypoglycemic drugs; Z88.8 Allergy status to other drugs, medicaments and biological substances
CPT/HCPCS: 71046; 71275; 74177; 80053; 80061; 80074; 80329; 82103; 82104; 82105; 82390; 82728; 82803; 82947; 82962; 82977; 83036; 83605; 83735; 83880; 83930; 84100; 84145; 84439; 84443; 84484; 85025; 85378; 85610; 85730; 87081; 93005; 93306; 97165; J0282; J0612; J1644; J1650; J2260; J3475; J7060; Q9957; Q9967